=== PATIENT | female | born 1955 | race Caucasian/White ===

== ENCOUNTER 2016-11-01 23:44 | Inpatient (IN) | payer MEDICAID ==
[~2016-11-01] VITALS: Ht 152.4 cm; Wt 48.5 kg
[~2016-11-01 23:44] MED LIST: AMLO10 PO; CELE20TA PO; CLON.2 PO; DIAZ10TA PO; LISI-515 PO; METR-1 PO; OMEP40CA2 PO; PERC7.5T13 PO; ZOFR4TAB3 SL
[2016-11-01 23:47] VITALS: BP 159/94; PULSE 96; RESP 18; TEMP 98.5; O2SAT 98
[2016-11-02] VITALS (10 sets, daily range): BP systolic 120–234; BP diastolic 53–129; PULSE 58–110; RESP 18–22; TEMP 97–99.1; O2SAT 94–98
[2016-11-02] MEDS ORDERED: SODIUM CHLOR 0.9% 1000 ML INJ 1,000 ML IV ONE (00:30)
[2016-11-02] MEDS ORDERED: ONDANSETRON HCL 4 MG/2 ML VIAL IV PUSH ONE (00:30)
[2016-11-02] MEDS ORDERED: PAXI10TA2 PO (00:36)
[2016-11-02] MEDS ORDERED: PROT40TA PO (00:37)
[2016-11-02] MEDS ORDERED: HYDROmorphone HCL PF 1 MG/ML VIAL ONE ×2 (01:00→03:43)
[2016-11-02] MEDS ORDERED: HYDROmorphone HCL PF 0.5 MG/0.5 ML SYRINGE IV PUSH ONE ×2 (01:00→03:30)
--- NOTE | 2016-11-02 01:04 | PD ---
HPI Chief Complaint: Seizure Time Seen by Provider: 00:20 Travel History International Travel<30 days: No Contact w/Intl Traveler<30days: No Traveled to known affect area: No History of Present Illness HPI The patient is a 61 year old female who presents to the [facility] emergency department with a history of awakening this morning with generalized abdominal pain and nausea vomiting. The patient reports that she has a history of frequent episodes of abdominal pain with nausea and vomiting that have been attributed to short gut syndrome. She is in the process of being reevaluated by a new calciner operator, at the [facility]. The patient tried taking her oral Zofran and continued to have vomiting. She reports that she's had too many episodes of vomiting to count. She reports that she last moved her bowels yesterday. She reports that she does have a history of constipation. She denies having any known fevers. Her reports that they were attempting to hydrate her with Pedialyte, however she was not able to keep it down. He reports that at 10 PM she had seizure activity. He reports that it appeared to be shaking all over with a blue coloration to her lips. He reports that she has had a seizure in the past and was seen at [facility] for it. The patient was noted to have a spot on her brain. She is attempting to follow-up with a neurologist, however she has not done so yet. He reports that she was placed on gabapentin for seizures in the past, however her primary care physician discontinue this a few months ago. Otherwise on review of systems, the patient denies any recent cough, cough, congestion, neck pain, chest pain, shortness of breath, urinary symptoms, or other neurologic symptoms. [facility] Past Medical History Narrative Medical the patient's past medical history is significant for recurrent abdominal pain with episodes of vomiting, hypertension, history of colon cancer, history of bowel obstruction and adhesion lysis, history of post traumatic stress disorder , history of short gut syndrome. Arthritis: Yes (BACK AND HIPS) Anxiety: Yes (PTSD) Depression: Yes Cancer: Yes (COLON) Cardiovascular Problems: Yes Chemotherapy: No Diminished Hearing: No Endocrine: No Gastrointestinal Disorders: Yes (COLON CANCER AND COLECTOMY IN 2009 DUODENITIS) Genitourinary: Yes (RENAL STENT PLACEMENT) Hypertension: Yes Immune Disorder: No Implanted Vascular Access Dvce: No Musculoskeletal: Yes Neurologic: Yes Psychiatric: Yes (PTSD) Reproductive: No Respiratory: No Immunizations Current: Yes Radiation Therapy: No Seizures: Yes Menopausal: Yes : 1 Para: 1 Miscarriage: 0 Tubal Ligation: Yes Past Surgical History Narrative Surgical The patient's past surgical history is significant for a partial colectomy due to colon cancer, left breast lumpectomy, left renal stent, hemorrhoidectomy, exploratory lap with lysis of adhesions. Abdominal Surgery: Yes (10'' COLECTOMY, HEMORHROID) Appendectomy: Yes Gynecologic Surgery: Yes (LT LUMPECTOMY) Neurologic Surgery: Yes (LT RENAL ARTERY STENT) Pacemaker: No Other Surgery: Yes Social History Alcohol Use: No Tobacco Use: No Substance Use: No Allergies-Medications (Allergen,Severity, Reaction): Coded Allergies: codeine (Unverified Allergy, Severe, Nausea/Vomiting, 11/01/16) diphenhydramine (Unverified Allergy, Severe, Hypertension, 11/01/16) hydrocodone (Unverified Allergy, Severe, Nausea/Vomiting, 11/01/16) Reported Meds & Prescriptions Reported Meds & Active Scripts Active Percocet (Oxycodone-Acetaminophen) 7.5-325 mg Tab 1 Tab PO Q4H PRN Reported Protonix (Pantoprazole Sodium) 40 Mg Tab 40 Mg PO DAILY Paxil (Paroxetine HCl) 10 Mg Tab 40 Mg PO DAILY Zofran Odt (Ondansetron Odt) 4 Mg Tab 4 Mg SL TID PRN Norvasc (Amlodipine Besylate) 10 Mg Tab 10 Mg PO DAILY Lisinopril 20 Mg Tab 20 Mg PO BID Diazepam 10 Mg Tab 10 Mg PO TID Catapres (Clonidine) 0.2 Mg Tab 0.2 Mg PO Q12HR Review of Systems Except as stated in HPI: all other systems reviewed are Neg General / Constitutional: No: Fever Eyes: No: Visual changes HENT: No: Headaches Cardiovascular: No: Chest Pain or Discomfort Respiratory: No: Shortness of Breath Gastrointestinal: Positive: Nausea, Vomiting, Abdominal Pain, Constipation, Indigestion, Loss of Appetite, No: Diarrhea, Hematemesis, Hematochezia, Changes in Bowel Habits Genitourinary: No: Dysuria Musculoskeletal: No: Pain Skin: No Rash Neurologic: Positive: Weakness, Seizures, No: Focal Abnormalities, Change in Mentation, Slurred Speech, Sensory Disturbance Psychiatric: No: Depression Endocrine: No: Polydipsia Hematologic/Lymphatic: No: Easy Bruising Physical Exam Narrative General: The patient is a well-developed, thin appearing female, uncomfortable appearing on arrival, with tachypnea, writhing around in the bed. Head and Neck exam: Head is normocephalic atraumatic. Eyes: EOMI, pupils are equal round and reactive to light. Nose: Midline septum with pink mucous membranes Mouth: Dentition unremarkable. Moist mucus membranes. Posterior oropharynx is not erythematous. No tonsillar hypertrophy. Uvula midline. Airway patent. Neck: No palpable lymphadenopathy. No nuchal rigidity. No thyromegaly. Cardiovascular: Sinus tachycardia in the low 100 without murmurs, gallops, or rubs. No pulse deficit to the extremities and simultaneous auscultation and palpation of the radial artery. Lungs: Clear to auscultation bilaterally. No wheezes, rhonchi, or rales. Abdomen: Soft, with diffuse tenderness on palpation in all quadrants of the abdomen. No guarding, rebound, or rigidity. Negative Arvizu's sign. No point tenderness specifically over McBurney's point. Decreased bowel sounds are audible. Extremities: No clubbing, cyanosis, or edema. 2+ pulses in all 4 extremities. Back: No spinous process tenderness to palpation. No costovertebral angle tenderness to palpation. Neurologic Exam: Grossly nonfocal. Skin Exam: No rash noted. Intact skin that is warm and dry. Data Data Last Documented VS Vital Signs Date Time Temp Pulse Resp B/P (MAP) Pulse Ox O2 Delivery O2 Flow Rate FiO2 11/02/16 01:58 97.0 110 22 189/86 (120) 98 Room Air Orders Orders Electrocardiogram (11/02/16 00:30) Complete Blood Count With Diff (11/02/16 00:30) Comprehensive Metabolic Panel (11/02/16 00:30) Creatine Kinase (Cpk) (11/02/16 00:30) Ckmb (Isoenzyme) Profile (11/02/16 00:30) Troponin I (11/02/16 00:30) B-Type Natriuretic Peptide (11/02/16 00:30) Prothrombin Time / Inr (Pt) (11/02/16:30) Act Partial Throm Time (Ptt) (11/02/16 00:30) Lipase (11/02/16 00:30) Urinalysis - C+S If Indicated (11/02/16:30) Magnesium (Mg) (11/02/16:30) Chest, Single Ap (11/02/16 00:30) Ct Brain W/O Iv Contrast(Rout) (11/02/16 00:30) Iv Access Insert/Monitor (11/02/16 00:30) Ecg Monitoring (11/02/16:) Oximetry (11/02/16:30) Drug Screen, Random Urine (11/02/16:30) Alcohol (Ethanol) (11/02/16:30) Salicylates (Aspirin) (11/02/16:30) Tylenol (Acetaminophen) (11/02/16:30) Lactic Acid Sepsis Protocol (11/02/16 00:30) Sodium Chlor 0.9% 1000 Ml Inj (Ns 1000 M (11/02/16 00:30) Ondansetron Inj (Zofran Inj) (11/02/16 00:30) Hydromorphone Pf Inj (Dilaudid Pf Inj) (11/02/16 01:00) Hydromorphone Pf Inj (Dilaudid Pf Inj) (11/02/16 01:00) Blood Culture (11/02/16 01:27) Sodium Chlorid 0.9% 500 Ml Inj (Ns 500 M (11/02/16 01:30) Piperacil-Tazo 3.375 Gm Premix (Zosyn 3. (11/02/16 01:30) Vancomycin Inj (Vancomycin Inj) (11/02/16 01:30) Potassium Chlor 20 Meq Premix (Kcl 20 Me (11/02/16 01:30) CKMB (11/02/16 00:45) CKMB% (11/02/16 00:45) Ct Abd/Pel W/O Iv Contrast (11/02/16 00:30) Lactic Acid Sepsis Protocol (11/02/16 03:07) Admit Order (Ed Use Only) (11/02/16 03:09) Labs Laboratory Tests Test 11/02/16 00:45 White Blood Count 19.1 TH/MM3 Red Blood Count 5.13 MIL/MM3 Hemoglobin 13.6 GM/DL Hematocrit 41.6 % Mean Corpuscular Volume 81.2 FL Mean Corpuscular Hemoglobin 26.6 PG Mean Corpuscular Hemoglobin Concent 32.7 % Red Cell Distribution Width 16.8 % Platelet Count 502 TH/MM3 Mean Platelet Volume 9.5 FL Neutrophils (%) (Auto) 86.0 % Lymphocytes (%) (Auto) 8.4 % Monocytes (%) (Auto) 5.0 % Eosinophils (%) (Auto) 0.0 % Basophils (%) (Auto) 0.6 % Neutrophils # (Auto) 16.4 TH/MM3 Lymphocytes # (Auto) 1.6 TH/MM3 Monocytes # (Auto) 1.0 TH/MM3 Eosinophils # (Auto) 0.0 TH/MM3 Basophils # (Auto) 0.1 TH/MM3 CBC Comment DIFF FINAL Differential Comment Prothrombin Time 10.6 SEC Prothromb Time International Ratio 1.0 RATIO Activated Partial Thromboplast Time 20.1 SEC Blood Urea Nitrogen 17 MG/DL Creatinine 2.37 MG/DL Random Glucose 279 MG/DL Total Protein 9.0 GM/DL Albumin 4.3 GM/DL Calcium Level 10.0 MG/DL Magnesium Level 2.8 MG/DL Alkaline Phosphatase 175 U/L Aspartate Amino Transf (AST/SGOT) 27 U/L Alanine Aminotransferase (ALT/SGPT) 28 U/L Total Bilirubin 0.4 MG/DL Sodium Level 141 MEQ/L Potassium Level 2.8 MEQ/L Chloride Level 94 MEQ/L Carbon Dioxide Level 20.2 MEQ/L Anion Gap 27 MEQ/L Estimat Glomerular Filtration Rate 21 ML/MIN Lactic Acid Level 13.6 mmol/L Total Creatine Kinase 212 U/L Creatine Kinase MB 1.8 NG/ML Creatine Kinase MB % 0.8 % Troponin I LESS THAN 0.02 NG/ML B-Type Natriuretic Peptide 95 PG/ML Lipase 226 U/L Salicylates Level 2.2 MG/DL Acetaminophen Level LESS THAN 2.0 MCG/ML Ethyl Alcohol Level LESS THAN 3 MG/DL MDM Medical Decision Making Medical Screen Exam Complete: Yes Emergency Medical Condition: Yes Medical Record Reviewed: Yes Interpretation(s) Last Impressions Head CT 11/02/1629 Signed Impressions: Service Date/Time: Wednesday, November 02, 2016 02:20 - CONCLUSION: 1. No acute intracranial abnormalities. Landry Dodson MD Chest X-Ray 11/02/1629 Signed Impressions: Service Date/Time: Wednesday, November 02, 2016 01:04 - CONCLUSION: 1. No active disease. Landry Dodson MD Abdomen/Pelvis CT 11/02/1629 Signed Impressions: Service Date/Time: Wednesday, November 02, 2016 02:23 - CONCLUSION: 1. No acute findings in abdomen and pelvic CT. Postop partial right colectomy. No obstruction or free fluid. Landry Dodson MD Differential Diagnosis Bowel obstruction, versus ischemic bowel, versus perforated bowel, versus sepsis Narrative Course During the course of the patients emergency department visit, the patients history, examination, and differential diagnosis were reviewed with the patient. The patient had IV access obtained and blood work sent for analysis. The patient had an ECG done on arrival. The patient's ECG shows a sinus tachycardia with occasional supraventricular premature complexes, wavy, tremulous baseline could be affecting interpretation, however the patient does appear to have P waves. Heart rate is 106, no acute ST segment elevation is noted. ST segment depression is noted in lead 2, V5, V6. The patient was initially provided a 30 mL per KG IV fluid bolus. The patient was noted to have an elevated white blood cell count at 19.1 and was covered with broad-spectrum antibiotics including Zosyn 3.375 g IV, vancomycin 1 g IV. The patient was noted to be hypokalemic and continued nausea and vomiting therefore she was given 20 mEq of potassium chloride over 2 hours IV. The patient was given hydromorphone for pain, Zofran for nausea. On reexamination the patient reports that the pain briefly improved and then recurred. The patient has again vomited. The patient was given a second dose of hydromorphone and Zofran. The patients laboratory studies were reviewed and remarkable for a white count of 19.1, hemoglobin 13.6, platelets 502 with neutrophils 86, lymphocytes 8.4, CMP is remarkable for potassium of 2.8, CO2 20.2, anion gap 27, BUN 17, creatinine 2.37, glucose 279, magnesium 2.8, alkaline phosphatase 175, CPK 212, troponin less than 0.02, lipase 226. BNP is 95, PT PTT unremarkable. Acetaminophen less than 2, alcohol level less than 3, salicylate 2.2 Radiology studies were reviewed and remarkable for a chest x-ray that shows no acute cardiopulmonary disease. CT scan of the brain shows no acute intracranial abnormality, CT scan of the abdomen and pelvis shows no acute findings in the abdomen and pelvis, postop partial right colectomy, no obstruction or free fluid. The patients results were discussed with the patient, including the plan of care. I explained that further testing and/ or monitoring is indicated based on the patients history, examination, and/ or laboratory findings. Therefore, I recommended admission for additional evaluation. The patient expressed understanding and was agreeable with this plan. The patient was admitted to the hospital in guarded condition and sent to a bed under the care of the [facility]. Sepsis Criteria SIRS Criteria (2 or more): Heart rate over 90, WBC > 15207, < 4000 or > 10% bands Severe Sepsis (+one): Lactate >2 Criteria Outcome: Meets SIRS criteria Physician Communication Physician Communication The patient's case was discussed with Dr. Connor who did agree to admit the patient for further evaluation and treatment at this time. Diagnosis Primary Impression: Abdominal pain Qualified Codes: R10.84 - Generalized abdominal pain Additional Impressions: Dehydration Lactic acid acidosis Admitting Information Admitting Physician Requests: Admit Adriana Poole MD Nov 02, 2016 01:04
[2016-11-02 01:06] LABS: AUTOMATED NEUTROPHIL # 16.4 TH/MM3 (1.8-7.7); BASOPHIL # 0.1 TH/MM3 (0-0.2); BASOPHIL % 0.6 % (0.0-2.0); HEMATOCRIT 41.6 % (35.0-46.0); HEMO FLAGS DIFF FINAL; LYMPH % 8.4 % (9.0-44.0); LYMPHOCYTE # 1.6 TH/MM3 (1.0-4.8); MEAN CELL VOLUME 81.2 FL (80.0-100.0); MEAN CORPUSCULAR HEMOGLOBIN 26.6 PG (27.0-34.0); MEAN CORPUSCULAR HGB CONC 32.7 % (32.0-36.0); PLATELET COUNT 502 TH/MM3 (150-450); RED BLOOD COUNT 5.13 MIL/MM3 (4.00-5.30); RED CELL DISTRIBUTION WIDTH 16.8 % (11.6-17.2); WHITE BLOOD COUNT 19.1 TH/MM3 (4.0-11.0)
--- NOTE | 2016-11-02 01:27 | RADRPT ---
EXAM DATE/TIME: 11/02/2016 01:04 [facility] COMPARISON: CHEST SINGLE AP, January 18, 2016, 22:19. INDICATIONS : Shortness of breath. MEDICAL HISTORY : None. SURGICAL HISTORY : None. ENCOUNTER: Initial ACUITY: 1 day PAIN SCORE: 0/10 LOCATION: Bilateral chest FINDINGS: A single view of the chest demonstrates the lungs to be symmetrically aerated without evidence of mas s, infiltrate or effusion. The cardiomediastinal contours are unremarkable. Osseous structures are intact. CONCLUSION: 1. No active disease. Landry Dodson MD on November 02, 2016 at 1:25 Board Certified Radiologist. This report was verified electronically.
[2016-11-02 01:28] LABS: ACETAMINOPHEN LESS THAN 2.0 MCG/ML (10.0-30.0); ALKALINE PHOSPHATASE 175 U/L (45-117); ALT (GPT) 28 U/L (10-53); ANION GAP 27 MEQ/L (5-15); AST (GOT) 27 U/L (15-37); BICARBONATE 20.2 MEQ/L (21.0-32.0); BLOOD UREA NITROGEN 17 MG/DL (7-18); CHLORIDE 94 MEQ/L (98-107); CREATINE KINASE 212 U/L (26-192); GLOMERULAR FILTRATION RATE 21 ML/MIN (>89); MAGNESIUM 2.8 MG/DL (1.5-2.5); SODIUM (NA) 141 MEQ/L (136-145); TOTAL BILIRUBIN ADULT 0.4 MG/DL (0.2-1.0)
[2016-11-02 01:29] LABS: ALCOHOL LESS THAN 3 MG/DL (0-5)
[2016-11-02 01:30] LABS: APTT (PATIENT) 20.1 SEC (24.3-30.1); POTASSIUM 2.8 MEQ/L (3.5-5.1); PROTHROMBIN TIME - PATIENT 10.6 SEC (9.8-11.6)
[2016-11-02] MEDS ORDERED: VANCOMYCIN INJ 1,000 MG in SODIUM CHLOR 0.9% 250 ML INJ 250 ML IV ONE (01:30)
[2016-11-02] MEDS ORDERED: POTASSIUM CHLOR 20 MEQ PREMIX 100 ML IV ONE (01:30)
[2016-11-02] MEDS ORDERED: SODIUM CHLORID 0.9% 500 ML INJ 500 ML IV ONE (01:30)
[2016-11-02] MEDS ORDERED: PIPERACIL-TAZO 3.375 GM PREMIX 50 ML IV ONE (01:30)
[2016-11-02 01:43] LABS: CKMB 1.8 NG/ML (0.5-3.6)
--- NOTE | 2016-11-02 02:37 | RADRPT ---
EXAM DATE/TIME: 11/02/2016 02:20 [facility] COMPARISON: No previous studies available for comparison. INDICATIONS : Seizure. RADIATION DOSE: 38.08 CTDIvol (mGy) ; Tabletop CT Head MEDICAL HISTORY : Seizures. Hypertension. Carcinoma, colon. SURGICAL HISTORY : None. ENCOUNTER: Initial ACUITY: 1 day PAIN SCALE: 0/10 LOCATION: cranial TECHNIQUE: Multiple contiguous axial images were obtained of the head. Using automated exposure control and adj ustment of the mA and/or kV according to patient size, radiation dose was kept as low as reasonably a chievable to obtain optimal diagnostic quality images. DICOM format image data is available electro nically for review and comparison. FINDINGS: CEREBRUM: The ventricles are normal for age. No evidence of midline shift, mass lesion, hemorrhage or acute in farction. No extra-axial fluid collections are seen. POSTERIOR FOSSA: The cerebellum and brainstem are intact. The 4th ventricle is midline. The cerebellopontine angle i s unremarkable. EXTRACRANIAL: The visualized portion of the orbits is intact. SKULL: The calvaria is intact. No evidence of skull fracture. CONCLUSION: 1. No acute intracranial abnormalities. Landry Dodson MD on November 02, 2016 at 2:33 Board Certified Radiologist. This report was verified electronically.
--- NOTE | 2016-11-02 02:43 | RADRPT ---
EXAM DATE/TIME: 11/02/2016 02:23 [facility] COMPARISON: No previous studies available for comparison. INDICATIONS : Diffuse abdominal pain with nausea. ORAL CONTRAST: No oral contrast ingested. RADIATION DOSE: 4.58 CTDIvol (mGy) MEDICAL HISTORY : Hypertension. Carcinoma, colon. SURGICAL HISTORY : Appendectomy. Tubal ligation.Colectomy. Left renal shunt. ENCOUNTER: Initial ACUITY: 1 day PAIN SCALE: 7/10 LOCATION: All quadrants TECHNIQUE: Volumetric scanning of the abdomen and pelvis was performed. Using automated exposure control and ad justment of the mA and/or kV according to patient size, radiation dose was kept as low as reasonably achievable to obtain optimal diagnostic quality images. DICOM format image data is available electro nically for review and comparison. FINDINGS: Lung bases are clear. No acute findings in the liver, spleen, adrenals, kidneys or pancreas. No free fluid. No bowel obstruction. Postop changes of partial right colectomy. No acute bony abnorma lity. CONCLUSION: 1. No acute findings in abdomen and pelvic CT. Postop partial right colectomy. No obstruction or free fluid. Landry Dodson MD on November 02, 2016 at 2:36 Board Certified Radiologist. This report was verified electronically.
[2016-11-02 02:56] LABS: LACTIC ACID GHOST NOT REPORTABLE
[2016-11-02] MEDS ORDERED: ONDANSETRON HCL 4 MG/2 ML VIAL IV ONE (03:30)
[2016-11-02] MEDS ORDERED: ONDANSETRON HCL 4 MG/2 ML VIAL IVP PRN (04:00)
[2016-11-02] MEDS ORDERED: SODIUM CHLORIDE 0.9% FLUSH 10 ML FLUSH IV FLUSH PRN (04:00)
[2016-11-02] MEDS: SODIUM CHLOR 0.9% 1000 ML INJ 1,000 ML IV SCH ×3 (04:00→23:32)
[2016-11-02] MEDS ORDERED: NALOXONE HCL 0.4 MG/ML AMP IV PRN (04:00)
[2016-11-02 05:27] LABS: LACTIC ACID GHOST NOT REPORTABLE
[2016-11-02] MEDS ORDERED: cloNIDine HCL 0.2 MG TAB PO ONE (06:15)
[2016-11-02] MEDS: HEPARIN SODIUM - SQ 10,000 UNITS/ML VIAL SQ SCH ×3 (06:41→23:30)
--- NOTE | 2016-11-02 07:31 | HHI.HP ---
[facility] Primary Care Physician John Donato MD Admission Diagnosis Abdominal pain, dehydration, hypokalemia, sepsis Diagnoses: Travel History International Travel<30 Days: No Contact w/Intl Traveler <30 Da: No Traveled to Known Affected Are: No History of Present Illness History from patient, ER physician communication, and review of medical records. Patient reported that she was brought to the hospital because she had a witnessed seizure at home. Her was a one who called 911. She does not remember the details of it but only remembered what her told her. She reports she was having nausea and vomiting starting Monday afternoon. She states she just could not stop these episodes of nausea and vomiting despite using Zofran. Home. Also reports of associated diarrhea. The symptoms continued all day Monday. The evening of Monday, she had an episode of seizure which was witnessed by . It is described as tonic-clonic seizures both the ambulance members and patient's history. Patient reports that the stent of episodes started since 1970s. She states that she was tried on different types of medications but none worked. She reports the episodes usually are preceded by nausea vomiting and when she cannot control his nausea and vomiting episodes, she would get too dehydrated and something sets in and she would have seizures. States she it is diabetic but only recently diagnosed. Not able to name her medications for diabetes. She does not measure her blood sugars and does not do whether her blood sugars were low on the scene. But she definitely was not eating or drinking well for the past 2 days. She reports that at one point, she is to be on Xanax 8 mg and therefore she had started to see Dr. TORRES as her primary and requested the doctor to wean her off Xanax. She states since then, she has been weaned off Xanax for past few years now. She has currently been taking Valium 10 mg 3 times a day. Of course, she was not able to keep this down as well for the past 2 days because of constant nausea and vomiting. Denies alcohol abuse. Denies use of synthetic marijuana. Again, patient is diabetic, no documented blood sugars from EMS. Her blood sugars while in emergency room has been in the 200s. Apart from the above, patient denies any recent fever/the melena/hematemesis/ hematochezia/hematuria. Denies any chest pain/shortness of breath/focal weakness/palpitations/syncopal episodes. Review of Systems Except as stated in HPI: all other systems reviewed are Neg Past Family Social History Past Medical History htn dm renal stent- likely due to Renal Artery Stenosis no cardiac probiotics never a smoker- no copd hx of colon cancer- dr becerra removed and had rx in 2009 Past Surgical History partial colectomy appendecoomy Allergies: Coded Allergies: codeine (Unverified Allergy, Severe, Nausea/Vomiting, 11/01/16) diphenhydramine (Unverified Allergy, Severe, Hypertension, 11/01/16) hydrocodone (Unverified Allergy, Severe, Nausea/Vomiting, 11/01/16) Family History fatehr- dm mom- copd, dm, heart problem Social History never smoked no drinking no drugs lives with , still drives, Physical Exam Vital Signs Vital Signs Date Time Temp Pulse Resp B/P (MAP) Pulse Ox O2 Delivery O2 Flow Rate FiO2 11/02/16 06:40 89 18 234/129 (164) 98 Room Air 11/02/16 04:55 96 18 224/101 (142) 96 Room Air 11/02/16 01:58 97.0 110 22 189/86 (120) 98 Room Air 11/02/16 01:44 98 Room Air 11/01/16 23:47 98.5 96 18 159/94 (115) 98 Physical Exam GENERAL: This is a thin middle-aged lady, looks to be in quite discomfort from persistent nausea and vomiting. Looks dehydrated. SKIN: No rashes, ecchymoses or lesions. Cool and dry. HEAD: Atraumatic. Normocephalic. No temporal or scalp tenderness. EYES: . No scleral icterus. No injection or drainage. ENT: Nose without bleeding, purulent drainage or septal hematoma. Airway patent. NECK: Trachea midline. No JVD CARDIOVASCULAR: Regular rate and rhythm without murmurs, gallops, or rubs. RESPIRATORY: Clear to auscultation. Breath sounds equal bilaterally. No wheezes , rales, or rhonchi. GASTROINTESTINAL: Abdomen soft, non-tender, nondistended. . No guarding. MUSCULOSKELETAL: Extremities without clubbing, cyanosis, or edema. No calf tenderness. NEUROLOGICAL: Awake and alert. Motor and sensory grossly within normal limits. Normal speech. Laboratory Laboratory Tests Test 11/02/16 00:45 11/02/16 03:15 11/02/16 06:10 White Blood Count 19.1 Red Blood Count 5.13 Hemoglobin 13.6 Hematocrit 41.6 Mean Corpuscular Volume 81.2 Mean Corpuscular Hemoglobin 26.6 Mean Corpuscular Hemoglobin Concent 32.7 Red Cell Distribution Width 16.8 Platelet Count 502 Mean Platelet Volume 9.5 Neutrophils (%) (Auto) 86.0 Lymphocytes (%) (Auto) 8.4 Monocytes (%) (Auto) 5.0 Eosinophils (%) (Auto) 0.0 Basophils (%) (Auto) 0.6 Neutrophils # (Auto) 16.4 Lymphocytes # (Auto) 1.6 Monocytes # (Auto) 1.0 Eosinophils # (Auto) 0.0 Basophils # (Auto) 0.1 CBC Comment DIFF FINAL Differential Comment Prothrombin Time 10.6 Prothromb Time International Ratio 1.0 Activated Partial Thromboplast Time 20.1 Blood Urea Nitrogen 17 Creatinine 2.37 Random Glucose 279 Total Protein 9.0 Albumin 4.3 Calcium Level 10.0 Magnesium Level 2.8 Alkaline Phosphatase 175 Aspartate Amino Transf (AST/SGOT) 27 Alanine Aminotransferase (ALT/SGPT) 28 Total Bilirubin 0.4 Sodium Level 141 Potassium Level 2.8 Chloride Level 94 Carbon Dioxide Level 20.2 Anion Gap 27 Estimat Glomerular Filtration Rate 21 Lactic Acid Level 13.6 4.2 2.0 Total Creatine Kinase 212 Creatine Kinase MB 1.8 Creatine Kinase MB % 0.8 Troponin I LESS THAN 0.02 B-Type Natriuretic Peptide 95 Lipase 226 Salicylates Level 2.2 Acetaminophen Level LESS THAN 2.0 Ethyl Alcohol Level LESS THAN 3 Date/Time Source Procedure Growth Status 11/02/16 01:35 Blood Peripheral Aerobic Blood Culture Pending Received 11/02/16 01:35 Blood Peripheral Anaerobic Blood Culture Pending Received Result Diagram: 11/02/16 0045 11/02/16 0045 Imaging Last [address] 11/02/16 0030 Signed Impressions: Service Date/Time: Wednesday, November 02, 2016 02:20 - CONCLUSION: 1. No acute intracranial abnormalities. Landry Dodson MD Chest X-Ray 11/02/1629 Signed Impressions: Service Date/Time: Wednesday, November 02, 2016 01:04 - CONCLUSION: 1. No active disease. Landry Dodson MD Abdomen/Pelvis CT 11/02/1629 Signed Impressions: Service Date/Time: Wednesday, November 02, 2016 02:23 - CONCLUSION: 1. No acute findings in abdomen and pelvic CT. Postop partial right colectomy. No obstruction or free fluid. Landry Dodson MD Caprini VTE Risk Assessment Caprini VTE Risk Assessment: Mod/High Risk (score >= 2) Caprini Risk Assessment Model Point Value = 1 Point Value = 2 Point Value = 3 Point Value = 5 Age 41-60 Minor surgery BMI > 25 kg/m2 Swollen legs Varicose veins or History of unexplained or recurrent spontaneous Oral contraceptives or hormone replacement Sepsis (< 1 month) Serious lung disease, including pneumonia (< 1 month) Abnormal pulmonary function Acute myocardial infarction Congestive heart failure (< 1 month) History of inflammatory bowel disease Medical patient at bed rest Age 61-74 Arthroscopic surgery Major open surgery (> 45 min) Laparoscopic surgery (> 45 min) Malignancy Confined to bed (> 72 hours) Immobilizing plaster cast Central venous access Age >= 75 History of VTE Family history of VTE Factor V Leiden Prothrombin [id number] Lupus anticoagulant Anticardiolipin antibodies Elevated serum homocysteine Heparin-induced thrombocytopenia Other congenital or acquired thrombophilia Stroke (< 1 month) Elective arthroplasty Hip, pelvis, or leg fracture Acute spinal cord injury (< 1 month) Prophylaxis Regimen Total Risk Factor Score Risk Level Prophylaxis Regimen 0-1 Low Early ambulation 2 Moderate Order ONE of the following: *Sequential Compression Device (SCD) *Heparin 5000 units SQ BID 3-4 Higher Order ONE of the following medications: *Heparin 5000 units SQ TID *Enoxaparin/Lovenox 40 mg SQ daily (WT < 150 kg, CrCl > 30 mL/min) *Enoxaparin/Lovenox 30 mg SQ daily (WT < 150 kg, CrCl > 10-29 mL/min) *Enoxaparin/Lovenox 30 mg SQ BID (WT < 150 kg, CrCl > 30 mL/min) AND/OR *Sequential Compression Device (SCD) 5 or more Highest Order ONE of the following medications: *Heparin 5000 units SQ TID (Preferred with Epidurals) *Enoxaparin/Lovenox 40 mg SQ daily (WT < 150 kg, CrCl > 30 mL/min) *Enoxaparin/Lovenox 30 mg SQ daily (WT < 150 kg, CrCl > 10-29 mL/min) *Enoxaparin/Lovenox 30 mg SQ BID (WT < 150 kg, CrCl > 30 mL/min) AND *Sequential Compression Device (SCD) Assessment and Plan Assessment and Plan Impression: Witnessed seizure Lactic acid acidosis Anion gap metabolic acidosis- secondary to lactic acid acidosis from seizures Acute renal failure- secondary to dehydration from GI loss Hypokalemia Uncontrolled hypertension/secondary to missing home medications from GI loss. Suspects patient also has history of renal artery stenosis. Persistent nausea/vomiting prior history of chronicity. Possible cyclic vomiting syndrome. History of colon cancer with status post partial right colectomy Plan: IV hydration. Nothing by mouth. Patient was given aggressive IV hydration in ER. Repeat lactic acid has trended down. Repeat BMP now to follow potassium levels and renal function. Without waiting on repeat lab work, give patient additional 40 mEq by mouth of KCl and 40 mEq IV KCl. Seizure precautions. EEG. Neurology consult. Question whether patient is having seizures from benzo withdrawal as she is not able to keep down her Valium for the past 2 days due to her severe nausea and vomiting. There is also possibility that patient had hypoglycemic seizures and she was not able to eat or drink well for past 2 days while having these episodes of nausea and vomiting. Her Start patient on her home antihypertensive medications including clonidine. Nausea control. Add hydralazine 10 mg IV every 30 minutes when necessary for blood pressure greater than 160/90. DVT prophylaxis- with heparin. Discussed Condition With Patient, ER physician, patient's nurse Physician Certification 2 Midnight Certification Type: Admission for Inpatient Services Order for Inpatient Services The services are ordered in accordance with Medicare regulations or non- Medicare payer requirements, as applicable. In the case of services not specified as inpatient-only, they are appropriately provided as inpatient services in accordance with the 2-midnight benchmark. Estimated LOS (days): 3 days is the estimated time the patient will need to remain in the hospital, assuming treatment plan goals are met and no additional complications. Post-Hospital Plan: Home Salazar Connor MD Nov 02, 2016 07:31
[2016-11-02] MEDS ORDERED: cloNIDine HCL 0.1 MG TAB PO ONE (07:45)
[2016-11-02] MEDS ORDERED: POTASSIUM CHLORIDE 20 MEQ CONTROLLED RELEASE TAB PO ONE (08:00)
[2016-11-02] MEDS ORDERED: ONDANSETRON ODT 4 MG TAB SL PRN (08:15)
[2016-11-02] MEDS ORDERED: hydrALAZINE HCL 20 MG/ML VIAL IV PUSH PRN (08:15)
[2016-11-02] MEDS: POTASSIUM CHLOR 20 MEQ PREMIX 100 ML IV SCH ×2 (09:20→09:25)
[2016-11-02] MEDS: SODIUM CHLORIDE 0.9% FLUSH 10 ML FLUSH IV FLUSH SCH ×2 (09:24→21:00)
[2016-11-02] MEDS: PANTOPRAZOLE SOD 40 MG DELAYED RELEASE TAB PO SCH (09:24)
[2016-11-02] MEDS: DIAZEPAM 10 MG TAB PO SCH ×3 (09:24→17:57)
[2016-11-02] MEDS: PARoxetine HCL 20 MG TAB PO SCH (12:18)
[2016-11-02] MEDS: cloNIDine HCL 0.2 MG TAB PO SCH ×2 (12:19→23:28)
[2016-11-02 16:22] LABS: AUTOMATED NEUTROPHIL # 14.8 TH/MM3 (1.8-7.7); BASOPHIL # 0.1 TH/MM3 (0-0.2); BASOPHIL % 0.4 % (0.0-2.0); HEMATOCRIT 34.4 % (35.0-46.0); HEMO FLAGS DIFF FINAL; LYMPH % 12.5 % (9.0-44.0); LYMPHOCYTE # 2.3 TH/MM3 (1.0-4.8); MEAN CORPUSCULAR HEMOGLOBIN 25.7 PG (27.0-34.0); MEAN CORPUSCULAR HGB CONC 31.7 % (32.0-36.0); MONO % 7.1 % (0.0-8.0); PLATELET COUNT 306 TH/MM3 (150-450); RED BLOOD COUNT 4.25 MIL/MM3 (4.00-5.30); RED CELL DISTRIBUTION WIDTH 16.7 % (11.6-17.2); WHITE BLOOD COUNT 18.6 TH/MM3 (4.0-11.0)
[2016-11-02 16:53] LABS: ALKALINE PHOSPHATASE 130 U/L (45-117); ALT (GPT) 23 U/L (10-53); ANION GAP 10 MEQ/L (5-15); AST (GOT) 33 U/L (15-37); BICARBONATE 25.3 MEQ/L (21.0-32.0); BLOOD UREA NITROGEN 21 MG/DL (7-18); CHLORIDE 108 MEQ/L (98-107); GLOMERULAR FILTRATION RATE 31 ML/MIN (>89); MAGNESIUM 2.4 MG/DL (1.5-2.5); POTASSIUM 3.6 MEQ/L (3.5-5.1); SODIUM (NA) 143 MEQ/L (136-145); TOTAL BILIRUBIN ADULT 0.3 MG/DL (0.2-1.0)
--- NOTE | 2016-11-02 19:47 | MG ---
cc: DINA YOUNG PHD Lab No: [id number] Date: 11/02/2016 Age: 61 Sex: F Race: __ TECHNIQUE 17 channel EEG. DESCRIPTION The background rhythm reveals a symmetrical alpha rhythm frequency is 8 Hz, amplitude is 20-30 microvolts. There is some muscle artifact present. There is occasional eye movement artifact present. No epileptiform activity is identified. Photic results in a fairly well-developed driving response. INTERPRETATION Normal EEG MD JAYESH Yates/ROMAINE /7:08 PM /7:41 PM
--- NOTE | 2016-11-02 21:11 | MB ---
cc: DINA YOUNG M.D. DATE OF CONSULTATION: 11/02/2016 REASON FOR CONSULTATION: Seizures. HISTORY OF PRESENT ILLNESS Ms. Segundo is a 61-year-old female who has a history of seizures in the past which she relates were related to Xanax withdrawal many years ago. However, she has been off Xanax for some time and began having recurrent seizures. She currently takes Xanax and Valium for anxiety, but states that the seizures are not associated with withdrawal. She usually gets abdominal symptoms initially, feeling of nausea with vomiting and then goes into a grand mal seizure, last seizure being a day ago. They occur with erratic frequency. PAST MEDICAL HISTORY: 1. History of PTSD. 2. History of anxiety. 3. Seizure disorder as noted above. 4. Hypertension. 5. Diabetes. 6. Renal stent due to renal artery stenosis. 7. History of colon cancer, treated surgically in 2009. ALLERGIES CODEINE. DIPHENHYDRAMINE. HYDROCODONE. SOCIAL HISTORY: Denies alcohol use or drug abuse. Denies tobacco use. NEUROLOGICAL EXAMINATION: Blood pressure is 149/73, pulse 95, respiratory rate is 20, temperature 90 degrees. Higher cortical functions are normal. Cranial nerves intact. Motor exam is normal with no focal deficits. Reflexes symmetric. CT of the brain is normal. LABORATORY DATA White count 18,600, hemoglobin 10.9, hematocrit 34%, platelet count 306,000. Sodium is 143, potassium 3.6, chloride 108, CO2 is 25.3. BUN is 21, creatinine 1.69, GFR is 31, glucose is 133, AST 33, ALT 23. PT 10.6, INR 1, APTT 20.1. IMPRESSION Recurrent seizures. Her EEG was normal. RECOMMENDATIONS: Recommend obtaining an MRI of the brain, would recommend also starting Keppra 500 mg b.i.d. MD JAYESH Yates/JENNIFER /7:17 PM /8:53 PM
--- NOTE | 2016-11-02 21:22 | EKG ---
Date Performed: 11/02/2016 Time Performed: 01:53:03 PTAGE: 61 years EKG: SINUS TACHYCARDIA WITH OCCASIONAL SUPRAVENTRICULAR PREMATURE COMPLEXES POSSIBLE LEFT ATRIAL ENLARGEMENT POSSIBLE RIGHT VENTRICULAR CONDUCTION DELAY ANTEROSEPTAL MYOCARDIAL INFARCTION DIFFUSE S T-T CHANGES ABNORMAL ECG Compared to prior tracing no significant change DOCTOR: Yuliana Donovan Interpretating Date/Time 11/02/2016 21:21:26
[2016-11-02] MEDS: levETIRAcetam 500 MG TAB PO SCH (23:28)
[2016-11-03] VITALS: BP 113/57; PULSE 53; RESP 17; TEMP 97.3; O2SAT 97
[2016-11-03 04:00] VITALS: BP 142/76; PULSE 52; RESP 17; TEMP 97.7; O2SAT 96
[2016-11-03] MEDS: HEPARIN SODIUM - SQ 10,000 UNITS/ML VIAL SQ SCH ×3 (05:09→22:11)
[2016-11-03 05:14] LABS: ANION GAP 6 MEQ/L (5-15); AST (GOT) 32 U/L (15-37); BICARBONATE 24.3 MEQ/L (21.0-32.0); BLOOD UREA NITROGEN 17 MG/DL (7-18); CHLORIDE 112 MEQ/L (98-107); GLOMERULAR FILTRATION RATE 48 ML/MIN (>89); POTASSIUM 4.1 MEQ/L (3.5-5.1); SODIUM (NA) 142 MEQ/L (136-145)
[2016-11-03 05:15] LABS: BASOPHIL # 0.1 TH/MM3 (0-0.2); BASOPHIL % 0.4 % (0.0-2.0); EOSINOPHIL % 0.2 % (0.0-4.0); HEMATOCRIT 29.6 % (35.0-46.0); HEMO FLAGS DIFF FINAL; LYMPH % 24.5 % (9.0-44.0); LYMPHOCYTE # 3.2 TH/MM3 (1.0-4.8); MEAN CELL VOLUME 82.6 FL (80.0-100.0); MEAN CORPUSCULAR HGB CONC 31.5 % (32.0-36.0); MONO % 5.5 % (0.0-8.0); NEUT % 69.4 % (16.0-70.0); PLATELET COUNT 202 TH/MM3 (150-450); RED BLOOD COUNT 3.59 MIL/MM3 (4.00-5.30); RED CELL DISTRIBUTION WIDTH 16.9 % (11.6-17.2); WHITE BLOOD COUNT 12.9 TH/MM3 (4.0-11.0)
[2016-11-03 05:28] LABS: ALKALINE PHOSPHATASE 101 U/L (45-117); ALT (GPT) 19 U/L (10-53); TOTAL BILIRUBIN ADULT 0.2 MG/DL (0.2-1.0)
[2016-11-03 08:00] VITALS: BP 172/81; PULSE 62; RESP 20; TEMP 98.1; O2SAT 94
[2016-11-03] MEDS: PANTOPRAZOLE SOD 40 MG DELAYED RELEASE TAB PO SCH (08:36)
[2016-11-03] MEDS: DIAZEPAM 10 MG TAB PO SCH ×3 (08:36→17:15)
[2016-11-03] MEDS: cloNIDine HCL 0.2 MG TAB PO SCH ×2 (08:36→22:10)
[2016-11-03] MEDS: PARoxetine HCL 20 MG TAB PO SCH (08:36)
[2016-11-03] MEDS: levETIRAcetam 500 MG TAB PO SCH ×2 (08:36→22:10)
[2016-11-03] MEDS: SODIUM CHLORIDE 0.9% FLUSH 10 ML FLUSH IV FLUSH SCH ×2 (08:37→21:00)
--- NOTE | 2016-11-03 08:47 | HHI.PR ---
Subjective Remarks Feeling well. Eating okay. Wants to go home. No further seizures. Objective Vitals Vital Signs Date Time Temp Pulse Resp B/P (MAP) Pulse Ox O2 Delivery O2 Flow Rate FiO2 11/03/16 04:00 97.7 52 17 142/76 (98) 96 11/03/16 01:09 96 Nasal Cannula 2.00 11/03/16 00:00 97.3 53 17 113/57 (75) 97 11/02/16 20:00 98.4 58 18 138/74 (95) 95 11/02/16 15:50 98.9 75 20 132/61 (84) 94 11/02/16 11:50 99.1 95 20 149/73 (98) 98 I/O 11/02/16 11/02/16 11/02/16 11/03/16 11/03/16 11/03/16 07:00 15:00 23:00 07:00 15:00 23:00 Intake Total 1750 ml 790 ml Balance 1750 ml 790 ml Intake Oral 690 ml IV Total 1750 ml 100 ml # Voids 3 # Bowel Movements 1 Result Diagram: 11/03/16 0415 11/03/16 0415 Imaging Last Impressions Head CT 11/02/1629 Signed Impressions: Service Date/Time: Wednesday, November 02, 2016 02:20 - CONCLUSION: 1. No acute intracranial abnormalities. Landry Dodson MD Chest X-Ray 11/02/1629 Signed Impressions: Service Date/Time: Wednesday, November 02, 2016 01:04 - CONCLUSION: 1. No active disease. Landry Dodson MD Abdomen/Pelvis CT 11/02/1629 Signed Impressions: Service Date/Time: Wednesday, November 02, 2016 02:23 - CONCLUSION: 1. No acute findings in abdomen and pelvic CT. Postop partial right colectomy. No obstruction or free fluid. Landry Dodson MD Objective Remarks GENERAL: This is a well-nourished, well-developed patient, in no apparent distress. CARDIOVASCULAR: Normal rate and regular rhythm without murmurs, gallops, or rubs. RESPIRATORY: Good respiratory efforts. Breath sounds equal and clear to auscultation bilaterally. GASTROINTESTINAL: Abdomen soft, non-tender, non-distended. Normal active bowel sounds MUSCULOSKELETAL: Extremities without cyanosis, or edema. NEURO: Alert & Oriented x4 to person, place, time, situation. Moves all ext x4 PSYCH: Appropriate mood and affect. A/P Assessment and Plan 61-year-old female admitted for: Witnessed seizure - Appreciate neurology following. Since started on Keppra and MRI ordered. Acute renal failure- secondary to dehydration from GI loss. Resolving - Continue IV fluid. Hypertension - Continue home dose antihypertensives. Persistent nausea/vomiting prior history of chronicity. Possible cyclic vomiting syndrome. History of colon cancer with status post partial right colectomy. Advise outpatient follow-up. Discharge Planning Possible discharge later today based on MRI results and input from neurology. Segundo Guardado MD Nov 03, 2016 08:47
[2016-11-03 12:09] VITALS: BP 122/65; PULSE 64; RESP 20; TEMP 96.4; O2SAT 97
[2016-11-03] MEDS ORDERED: MORPHINE SULFATE 4 MG/ML INJ IV PUSH ONE (13:30)
[2016-11-03 16:05] VITALS: BP 125/66; PULSE 58; RESP 20; TEMP 98.3; O2SAT 97
[2016-11-03 20:12] VITALS: BP 151/74; PULSE 61; RESP 19; TEMP 99.6; O2SAT 96
[2016-11-03] MEDS ORDERED: GADODIAMIDE PF 287 MG/ML 5 ML VIAL (for RAD MRI) IVCONTRAST ONE (21:48)
[2016-11-03] MEDS: SODIUM CHLOR 0.9% 1000 ML INJ 1,000 ML IV SCH (22:10)
--- NOTE | 2016-11-03 22:15 | RADRPT ---
EXAM DATE/TIME: 11/03/2016 21:08 [facility] COMPARISON: CT BRAIN W/O CONTRAST, November 02, 2016, 2:20. INDICATIONS : Seizures. CONTRAST: 9 cc Omniscan (gadodiamide) IV MEDICAL HISTORY : Carcinoma, colon. SURGICAL HISTORY : Colon resection. Hemorrhoidectomy. Left breast lumpectomy. Left renal stent. ENCOUNTER: Subsequent ACUITY: 2 day PAIN SCORE: 3/10 LOCATION: cranial TECHNIQUE: Multiplanar, multisequence MRI of the brain was performed both prior to and following the administrat ion of paramagnetic contrast. FINDINGS: Faint, mostly subcortical T2 and flair signal abnormality seen posteriorly of both parietal lobes and both cerebellar hemispheres. There is no associated restricted diffusion or abnormal enhancement. Th chino areas are not apparent on the comparison noncontrast head CT. I don't have any prior MRIs. There is no restricted diffusion. No bleed, mass effect or midline shift. A few sub-4 mm foci of flai r signal abnormality seen in the periventricular white matter of the posterolateral hemispheres. CONCLUSION: 1. Faint T2 and flair signal abnormality of both parietal lobes and cerebellar hemispheres, nonspecif ic but suggestive of possible posterior reversible encephalopathy in the proper clinical setting. The re is no associated restricted diffusion here or elsewhere to substantiate presence of an ischemic ev ent. 2. Minimal chronic white matter changes. 3. Otherwise negative. No mass, mass effect, midline shift or bleed. Hemant Goodrich MD on November 03, 2016 at 22:08 Board Certified Radiologist. This report was verified electronically.
[2016-11-03] MEDS: oxyCODONE/ACETAMINOPHEN 7.5 MG/325 MG TAB PO PRN (22:17)
[2016-11-04 00:02] VITALS: BP 122/71; PULSE 50; RESP 18; TEMP 96.1; O2SAT 98
[2016-11-04 04:02] VITALS: BP 136/87; PULSE 55; RESP 20; TEMP 97.6; O2SAT 95
[2016-11-04] MEDS: HEPARIN SODIUM - SQ 10,000 UNITS/ML VIAL SQ SCH (05:26)
[2016-11-04] MEDS: SODIUM CHLOR 0.9% 1000 ML INJ 1,000 ML IV SCH ×2 (05:26→05:42)
[2016-11-04] MEDS: oxyCODONE/ACETAMINOPHEN 7.5 MG/325 MG TAB PO PRN (05:26)
[2016-11-04] MEDS ORDERED: LEVE500 PO (07:59)
[2016-11-04 08:00] VITALS: BP 147/76; PULSE 59; RESP 18; TEMP 97; O2SAT 96
--- NOTE | 2016-11-04 08:02 | HHI.DCPOC ---
Discharge Care Plan Diagnosis: (1) Seizure (2) Acute renal failure (3) HTN (hypertension) (4) Anxiety (5) Abdominal pain Goals to Promote Your Health * To prevent worsening of your condition and complications * To maintain your health at the optimal level Directions to Meet Your Goals Take your medications as prescribed Follow your dietary instruction Follow activity as directed Keep your appointments as scheduled Take your immunizations and boosters as scheduled If your symptoms worsen call your PCP, if no PCP go to Urgent Care Center or Emergency Room Smoking is Dangerous to Your Health. Avoid second hand smoke Call the 24-hour hour crisis hotline for domestic abuse at Segundo Guardado MD Nov 04, 2016 08:02
[2016-11-04] MEDS: DIAZEPAM 10 MG TAB PO SCH ×2 (08:04→12:07)
[2016-11-04] MEDS: cloNIDine HCL 0.2 MG TAB PO SCH (08:04)
[2016-11-04] MEDS: PANTOPRAZOLE SOD 40 MG DELAYED RELEASE TAB PO SCH (08:04)
[2016-11-04] MEDS: PARoxetine HCL 20 MG TAB PO SCH (08:04)
[2016-11-04] MEDS: levETIRAcetam 500 MG TAB PO SCH (08:04)
[2016-11-04] MEDS: SODIUM CHLORIDE 0.9% FLUSH 10 ML FLUSH IV FLUSH SCH (08:04)
--- NOTE | 2016-11-04 10:04 | HHI.DS ---
Discharge Summary Admission Date Nov 02, 2016 at 03:11 Discharge Date: Nov 04, 2016 Admitting Diagnosis Abdominal pain, dehydration, hypokalemia, sepsis (1) Seizure ICD Code: R56.9 - Unspecified convulsions (2) Acute renal failure ICD Code: N17.9 - Acute kidney failure, unspecified Status: Acute (3) HTN (hypertension) ICD Code: I10 - HTN (hypertension) Status: Chronic (4) Anxiety ICD Code: F41.9 - Anxiety Status: Chronic Procedures None Brief History - From Admission HPI from the admitting physician History from patient, ER physician communication, and review of medical records. Patient reported that she was brought to the hospital because she had a witnessed seizure at home. Her was a one who called 911. She does not remember the details of it but only remembered what her told her. She reports she was having nausea and vomiting starting Monday afternoon. She states she just could not stop these episodes of nausea and vomiting despite using Zofran. Home. Also reports of associated diarrhea. The symptoms continued all day Monday. The evening of Monday, she had an episode of seizure which was witnessed by . It is described as tonic-clonic seizures both the ambulance members and patient's history. CBC/BMP: 11/03/16 0415 11/03/16 0415 Significant Findings Laboratory Tests Test 11/02/16 00:45 11/02/16 03:15 11/02/16 06:10 11/02/16 15:34 White Blood Count 19.1 TH/MM3 (4.0-11.0) 18.6 TH/MM3 (4.0-11.0) Mean Corpuscular Hemoglobin 26.6 PG (27.0-34.0) 25.7 PG (27.0-34.0) Platelet Count 502 TH/MM3 (150-450) Neutrophils (%) (Auto) 86.0 % (16.0-70.0) 80.0 % (16.0-70.0) Lymphocytes (%) (Auto) 8.4 % (9.0-44.0) Neutrophils # (Auto) 16.4 TH/MM3 (1.8-7.7) 14.8 TH/MM3 (1.8-7.7) Monocytes # (Auto) 1.0 TH/MM3 (0-0.9) 1.3 TH/MM3 (0-0.9) Activated Partial Thromboplast Time 20.1 SEC (24.3-30.1) Creatinine 2.37 MG/DL (0.50-1.00) 1.69 MG/DL (0.50-1.00) Random Glucose 279 MG/DL (74-106) 133 MG/DL (74-106) Total Protein 9.0 GM/DL (6.4-8.2) Magnesium Level 2.8 MG/DL (1.5-2.5) Alkaline Phosphatase 175 U/L (45-117) 130 U/L (45-117) Potassium Level 2.8 MEQ/L (3.5-5.1) Chloride Level 94 MEQ/L (98-107) 108 MEQ/L (98-107) Carbon Dioxide Level 20.2 MEQ/L (21.0-32.0) Anion Gap 27 MEQ/L (5-15) Estimat Glomerular Filtration Rate 21 ML/MIN (>89) 31 ML/MIN (>89) Lactic Acid Level 13.6 mmol/L (0.4-2.0) 4.2 mmol/L (0.4-2.0) Total Creatine Kinase 212 U/L (26-192) Troponin I LESS THAN 0.02 NG/ML Salicylates Level 2.2 MG/DL (2.8-20.0) Acetaminophen Level LESS THAN 2.0 MCG/ML Hemoglobin 10.9 GM/DL (11.6-15.3) Hematocrit 34.4 % (35.0-46.0) Mean Corpuscular Hemoglobin Concent 31.7 % (32.0-36.0) Blood Urea Nitrogen 21 MG/DL (7-18) Test 11/03/16 04:15 White Blood Count 12.9 TH/MM3 (4.0-11.0) Red Blood Count 3.59 MIL/MM3 (4.00-5.30) Hemoglobin 9.3 GM/DL (11.6-15.3) Hematocrit 29.6 % (35.0-46.0) Mean Corpuscular Hemoglobin 26.0 PG (27.0-34.0) Mean Corpuscular Hemoglobin Concent 31.5 % (32.0-36.0) Neutrophils # (Auto) 9.0 TH/MM3 (1.8-7.7) Creatinine 1.16 MG/DL (0.50-1.00) Total Protein 5.5 GM/DL (6.4-8.2) Albumin 2.6 GM/DL (3.4-5.0) Calcium Level 8.2 MG/DL (8.5-10.1) Chloride Level 112 MEQ/L (98-107) Estimat Glomerular Filtration Rate 48 ML/MIN (>89) Imaging Last Impressions Brain MRI 11/03/16 0000 Signed Impressions: Service Date/Time: October 21:08 - CONCLUSION: 1. Faint T2 and flair signal abnormality of both parietal lobes and cerebellar hemispheres, nonspecific but suggestive of possible posterior reversible encephalopathy in the proper clinical setting. There is no associated restricted diffusion here or elsewhere to substantiate presence of an ischemic event. 2. Minimal chronic white matter changes. 3. Otherwise negative. No mass, mass effect, midline shift or bleed. Hemant Goodrich MD Head CT 11/02/1629 Signed Impressions: Service Date/Time: Wednesday, November 02, 2016 02:20 - CONCLUSION: 1. No acute intracranial abnormalities. Landry Dodson MD Chest X-Ray 11/02/1629 Signed Impressions: Service Date/Time: Wednesday, November 02, 2016 01:04 - CONCLUSION: 1. No active disease. Landry Dodson MD Abdomen/Pelvis CT 11/02/1629 Signed Impressions: Service Date/Time: Wednesday, November 02, 2016 02:23 - CONCLUSION: 1. No acute findings in abdomen and pelvic CT. Postop partial right colectomy. No obstruction or free fluid. Landry Dodson MD PE at Discharge GENERAL: This is a well-nourished, well-developed patient, in no apparent distress. CARDIOVASCULAR: Normal rate and regular rhythm without murmurs, gallops, or rubs. RESPIRATORY: Good respiratory efforts. Breath sounds equal and clear to auscultation bilaterally. GASTROINTESTINAL: Abdomen soft, non-tender, non-distended. Normal active bowel sounds MUSCULOSKELETAL: Extremities without cyanosis, or edema. NEURO: Alert & Oriented x4 to person, place, time, situation. Moves all ext x4 PSYCH: Appropriate mood and affect. Pt update on day of discharge Patient reports she is feeling ok. Did not sleep well last night due to chronic pain. Wants to go home. Hospital Course 61-year-old female admitted for witnessed seizures, acute renal failure. The patient was followed by neurology. She had a normal EEG but are nonspecific MRI. She was treated with Keppra and did not have any further seizures. I discussed with neurology. She will follow up outpatient with neurology for repeat MRI. Regarding acute renal failure, this was likely secondary to dehydration from GI loss. Patient has persistent, chronic nausea and vomiting. Renal functions improved with IV fluid. Her home medications were continued for the rest of her chronic conditions. The patient is discharged home in good condition. Pt Condition on Discharge: Good Discharge Disposition: Discharge Home Discharge Time: <= 30 minutes Discharge Instructions Follow up Referrals: Neurology - 2 Weeks with Rinku Bran PhD MD PCP Follow-up New Medications: Levetiracetam (Keppra) 500 Mg Tab 500 MG PO Q12HR, #60 TAB Continued Medications: Amlodipine (Norvasc) 10 Mg Tab 10 MG PO DAILY for Blood Pressure Management, #30 TAB 0 Refills Clonidine (Catapres) 0.2 Mg Tab 0.2 MG PO Q12HR for Blood Pressure Management, #60 TAB 0 Refills Diazepam (Diazepam) 10 Mg Tab 10 MG PO TID, TAB 0 Refills Lisinopril (Lisinopril) 20 Mg Tab 20 MG PO BID, #30 TAB 0 Refills Ondansetron Odt (Zofran Odt) 4 Mg Tab 4 MG SL TID PRN for Nausea/Vomiting, #30 TAB 0 Refills Oxycodone-Acetaminophen (Percocet) 7.5-325 mg Tab 1 TAB PO Q4H PRN for PAIN, #20 TAB 0 Refills Pantoprazole (Protonix) 40 Mg Tab 40 MG PO DAILY for Reflux, #30 TAB 0 Refills Paroxetine (Paxil) 10 Mg Tab 40 MG PO DAILY, #30 TAB 0 Refills Segundo Guardado MD Nov 04, 2016 10:04
[2016-11-04 12:00] VITALS: BP 117/69; PULSE 53; RESP 18; TEMP 98.4; O2SAT 95
== END 2016-11-04 14:36 | disposition home or self-care (01) | DRG 101 ==
LOC: NEPC 23:44 → NEDA 11-02 03:11 → HOCA 11-02 08:45
PROVIDERS: ADMIT Family Medicine; ATTEND Family Medicine
DX: G40.89 Other seizures (principal); N17.9 Acute kidney failure, unspecified; K91.2 Postsurgical malabsorption, not elsewhere classified; E87.2 Acidosis; I70.1 Atherosclerosis of renal artery; I10 Essential (primary) hypertension; Z85.038 Personal history of other malignant neoplasm of large intestine; F43.10 Post-traumatic stress disorder, unspecified; F32.9 Major depressive disorder, single episode, unspecified; E87.6 Hypokalemia; E86.0 Dehydration; F41.9 Anxiety disorder, unspecified
CPT/HCPCS: 70450; 70553; 71010; 74176; 80053; 80307; 82550; 82552; 82948; 83605; 83690; 83735; 83880; 84484; 85025; 85610; 85730; 87040; 93005; 95819; 96361; 96365; 96375; 96376; 99285; J1170; A9579; J1644; J2270; J2405; J2543; J3370; J3480; J7030; J7040; J7050

== ENCOUNTER 2016-11-18 22:50 | Inpatient (IN) | payer MEDICAID ==
[~2016-11-18] VITALS: Ht 152.4 cm; Wt 47.2 kg
[2016-11-18 22:50] VITALS: BP 143/96; PULSE 145; RESP 18; TEMP 99.7; O2SAT 95
[~2016-11-18 22:50] MED LIST changes: -CELE20TA PO; +LEVE500 PO; -METR-1 PO; -OMEP40CA2 PO; +PAXI10TA2 PO; +PROT40TA PO
[2016-11-18] MEDS ORDERED: SODIUM CHLOR 0.9% 1000 ML INJ 1,000 ML IV SCH (23:09)
[2016-11-18 23:11] VITALS: BP 183/90; PULSE 130; RESP 24; O2SAT 94
[2016-11-18] MEDS ORDERED: ONDANSETRON HCL 4 MG/2 ML VIAL IVP ONE (23:15)
[2016-11-18] MEDS ORDERED: SODIUM CHLOR 0.9% 1000 ML INJ 1,000 ML IV ONE (23:15)
[2016-11-18 23:24] LABS: BLOOD, URINE NEG (NEG); GLUCOSE,URINE 250 mg/dL (NEG); KETONE, URINE NEG (NEG); NITRITE,URINE NEG (NEG); PH, URINE 7.5 (5.0-8.5)
[2016-11-18 23:25] LABS: HEMATOCRIT 47.8 % (35.0-46.0); MEAN CELL VOLUME 78.8 FL (80.0-100.0); MEAN CORPUSCULAR HEMOGLOBIN 25.7 PG (27.0-34.0); MEAN CORPUSCULAR HGB CONC 32.6 % (32.0-36.0); PLATELET COUNT 597 TH/MM3 (150-450); RED BLOOD COUNT 6.06 MIL/MM3 (4.00-5.30); RED CELL DISTRIBUTION WIDTH 14.7 % (11.6-17.2); WHITE BLOOD COUNT 19.2 TH/MM3 (4.0-11.0)
--- NOTE | 2016-11-18 23:25 | PD ---
HPI Chief Complaint: GI Complaint Time Seen by Provider: 23:01 Travel History International Travel<30 days: No Contact w/Intl Traveler<30days: No Traveled to known affect area: No History of Present Illness HPI Patient is a 61-year-old female with history of hypertension, diabetes, renal artery stenosis, anxiety, seizures, colon cancer with history of partial colectomy as well as appendectomy, presents to emergency room with complaints of abdominal pain with nausea vomiting and diarrhea. As per patient's , she has been sick all day. Reports that she has been nauseous and has been vomiting, she was unable to eat or drink anything. Patient's reports that patient appeared lethargic tonight, reports that he was concerned that she may have a seizure from electrolyte abnormalities so he brought her to the ER for evaluation. reports the patient is currently being worked up by Dr. Mejía for GI bleed as she has anemia. Reports that they are working to get her a colonscopy as well as EGD scheduled. Patient at this time reports pain to the lower abdomen with associated nausea and vomiting. Denies any chest pain /sob. PFSH Past Medical History Arthritis: Yes (BACK AND HIPS) Anxiety: Yes (PTSD) Depression: Yes Cancer: Yes (COLON) Cardiovascular Problems: Yes Chemotherapy: No Diminished Hearing: No Endocrine: No Gastrointestinal Disorders: Yes (COLON CANCER AND COLECTOMY IN 2009 DUODENITIS) Genitourinary: Yes (RENAL STENT PLACEMENT) Hypertension: Yes Immune Disorder: No Implanted Vascular Access Dvce: No Musculoskeletal: Yes Neurologic: Yes Psychiatric: Yes (PTSD) Reproductive: No Respiratory: No Immunizations Current: Yes Radiation Therapy: No Seizures: Yes Menopausal: Yes : 1 Para: 1 Miscarriage: 0 Tubal Ligation: Yes Past Surgical History Abdominal Surgery: Yes (10'' COLECTOMY, HEMORHROID) Appendectomy: Yes Gynecologic Surgery: Yes (LT LUMPECTOMY) Neurologic Surgery: Yes (LT RENAL ARTERY STENT) Pacemaker: No Other Surgery: Yes Social History Alcohol Use: No Tobacco Use: No Substance Use: No Allergies-Medications (Allergen,Severity, Reaction): Coded Allergies: codeine (Unverified Allergy, Severe, Nausea/Vomiting, 11/18/16) diphenhydramine (Unverified Allergy, Severe, Hypertension, 11/18/16) hydrocodone (Unverified Allergy, Severe, Nausea/Vomiting, 11/18/16) Reported Meds & Prescriptions Reported Meds & Active Scripts Active Keppra (Levetiracetam) 500 Mg Tab 500 Mg PO Q12HR Percocet (Oxycodone-Acetaminophen) 7.5-325 mg Tab 1 Tab PO Q4H PRN Reported Protonix (Pantoprazole Sodium) 40 Mg Tab 40 Mg PO DAILY Paxil (Paroxetine HCl) 10 Mg Tab 40 Mg PO DAILY Zofran Odt (Ondansetron Odt) 4 Mg Tab 4 Mg SL TID PRN Norvasc (Amlodipine Besylate) 10 Mg Tab 10 Mg PO DAILY Lisinopril 20 Mg Tab 20 Mg PO BID Diazepam 10 Mg Tab 10 Mg PO TID Catapres (Clonidine) 0.2 Mg Tab 0.2 Mg PO Q12HR Review of Systems General / Constitutional: No: Fever Eyes: No: Visual changes HENT: No: Headaches Cardiovascular: No: Chest Pain or Discomfort Respiratory: No: Shortness of Breath Gastrointestinal: Positive: Nausea, Vomiting, Diarrhea, Abdominal Pain Genitourinary: No: Dysuria Musculoskeletal: No: Pain Skin: No Rash Neurologic: Positive: Weakness Psychiatric: No: Depression Endocrine: No: Polydipsia Hematologic/Lymphatic: No: Easy Bruising Physical Exam Narrative GENERAL: moderate distress SKIN: Focused skin assessment warm/dry. Tachy appearing HEAD: Atraumatic. Normocephalic. EYES: Pupils equal and round. No scleral icterus. No injection or drainage. ENT: No nasal bleeding or discharge. Mucous membranes pink and dry. NECK: Trachea midline. No JVD. CARDIOVASCULAR: Tachycardic. No murmur appreciated. RESPIRATORY: No accessory muscle use. Clear to auscultation. Breath sounds equal bilaterally. GASTROINTESTINAL: Abdomen soft, diffuse abdominal pain with no guarding or rebound pain on exam MUSCULOSKELETAL: No obvious deformities. No clubbing. No cyanosis. No edema. NEUROLOGICAL: Awake and alert. No obvious cranial nerve deficits. PSYCHIATRIC: Flat mood and affect Data Data Last Documented VS Vital Signs Date Time Temp Pulse Resp B/P (MAP) Pulse Ox O2 Delivery O2 Flow Rate FiO2 11/18/16 22:50 99.7 145 18 143/96 (112) 95 Orders Orders Complete Blood Count With Diff (11/18/16 23:09) Comprehensive Metabolic Panel (11/18/16 23:09) Lipase (11/18/16 23:09) Lactic Acid (11/18/16 23:09) Prothrombin Time / Inr (Pt) (11/18/16 23:09) Urinalysis - C+S If Indicated (11/18/16 23:09) Ct Abd/Pel W Iv Contrast(Rout) (11/18/16 23:09) Iv Access Insert/Monitor (11/18/16 23:09) Ecg Monitoring (11/18/16 23:09) Oximetry (11/18/16 23:09) Ondansetron Inj (Zofran Inj) (11/18/16 23:15) Sodium Chlor 0.9% 1000 Ml Inj (Ns 1000 M (11/18/16 23:09) Sodium Chloride 0.9% Flush (Ns Flush) (11/18/16 23:15) Electrocardiogram (11/18/16 23:09) Chest, Single Ap (11/18/16 23:09) Blood Culture (11/18/16 23:09) Sodium Chlor 0.9% 1000 Ml Inj (Ns 1000 M (11/18/16 23:15) Ct Abd/Pel W/O Iv Contrast (11/18/16 23:47) Vancomycin Inj (Vancomycin Inj) (11/19/16 00:00) Piperacil-Tazo 3.375 Gm Premix (Zosyn 3. (11/19/16 00:00) Morphine Inj (Morphine Inj) (11/19/16 00:00) Labs Laboratory Tests Test 11/18/16 23:10 11/18/16 23:25 White Blood Count 19.2 TH/MM3 Red Blood Count 6.06 MIL/MM3 Hemoglobin 15.6 GM/DL Hematocrit 47.8 % Mean Corpuscular Volume 78.8 FL Mean Corpuscular Hemoglobin 25.7 PG Mean Corpuscular Hemoglobin Concent 32.6 % Red Cell Distribution Width 14.7 % Platelet Count 597 TH/MM3 Mean Platelet Volume 9.2 FL CBC Comment AUTO DIFF Differential Total Cells Counted 100 Neutrophils % (Manual) 85 % Band Neutrophils % 1 % Lymphocytes % 9 % Monocytes % 5 % Neutrophils # (Manual) 16.5 TH/MM3 Differential Comment FINAL DIFF MANUAL Platelet Estimate HIGH Platelet Morphology Comment NORMAL Urine Color YELLOW Urine Turbidity CLEAR Urine pH 7.5 Urine Specific [place] 1.016 Urine Protein 100 mg/dL Urine Glucose (UA) 250 mg/dL Urine Ketones NEG mg/dL Urine Occult Blood NEG Urine Nitrite NEG Urine Bilirubin NEG Urine Leukocyte Esterase NEG Urine RBC 0-3 /hpf Urine WBC 0-2 /hpf Urine Squamous Epithelial Cells 0-5 /hpf Urine Bacteria NONE /hpf Microscopic Urinalysis Comment CULT NOT INDICATED Blood Urea Nitrogen 28 MG/DL Creatinine 2.90 MG/DL Random Glucose 240 MG/DL Total Protein 10.0 GM/DL Albumin 4.2 GM/DL Calcium Level 10.7 MG/DL Alkaline Phosphatase 256 U/L Aspartate Amino Transf (AST/SGOT) 30 U/L Alanine Aminotransferase (ALT/SGPT) 23 U/L Total Bilirubin 0.4 MG/DL Sodium Level 137 MEQ/L Potassium Level 3.9 MEQ/L Chloride Level 89 MEQ/L Carbon Dioxide Level 27.3 MEQ/L Anion Gap 21 MEQ/L Estimat Glomerular Filtration Rate 17 ML/MIN Lipase 484 U/L Prothrombin Time 10.8 SEC Prothromb Time International Ratio 1.0 RATIO MDM Medical Decision Making Medical Screen Exam Complete: Yes Emergency Medical Condition: Yes Medical Record Reviewed: Yes Interpretation(s) EKG at 2351: Sinus tachcardia at 104bpm, qt/qtc: 371/432 Vital Signs Date Time Temp Pulse Resp B/P (MAP) Pulse Ox O2 Delivery O2 Flow Rate FiO2 11/18/16 22:50 99.7 145 18 143/96 (112) 95 Differential Diagnosis Differential includes electrolyte abnormality, colitis, sbo, gastritis, uti Narrative Course Patient is a 61-year-old female who presents to emergency room for evaluation of abdominal pain with nausea, vomiting and diarrhea all day today. Patient tachycardia and cachetic on exam. She does appear very dehydrated. Patient was placed on a monitoring and evaluation advisor upon arrival to the emergency room. Lab work including CBC, CMP, Lipase, Lactic acid ordered. CT of abdomen and pelvis also ordered. IVF and antiemetics administered. Vital Signs Date Time Temp Pulse Resp B/P (MAP) Pulse Ox O2 Delivery O2 Flow Rate FiO2 11/18/16 22:50 99.7 145 18 143/96 (112) 95 CBC & BMP Diagram 11/18/16 23:10 Total Protein 10.0 H, Albumin 4.2, Calcium Level 10.7 H, Alkaline Phosphatase 256 H, Aspartate Amino Transf (AST/SGOT) 30, Alanine Aminotransferase (ALT/SGPT ) 23, Total Bilirubin 0.4 patient with a 19.2 wbc, tachycardic, she has been pancultured, vanco and zosyn ordered as she does have SIRS criteria CR 2.90 which is elevated from baseline - past cr on 11/03/16 was 1.16 - patient with VICK CT of abdomen and pelvis pending at this time. Patient signed out to Dr. Crawford at change of shift. Patient pending lab work as well as ct and admission to hospital Diagnosis Primary Impression: Leukocytosis Qualified Codes: D72.829 - Elevated white blood cell count, unspecified Additional Impressions: Acute renal failure Qualified Codes: N17.9 - Acute kidney failure, unspecified SIRS (systemic inflammatory response syndrome) Admitting Information Admitting Physician Requests: Admit (is) Linda Persaud DO Nov 18, 2016 23:25
[2016-11-18 23:28] LABS: HEMO FLAGS AUTO DIFF
[2016-11-18 23:36] LABS: CHLORIDE 89 MEQ/L (98-107); SODIUM (NA) 137 MEQ/L (136-145)
[2016-11-18 23:39] LABS: ANION GAP 21 MEQ/L (5-15); BICARBONATE 27.3 MEQ/L (21.0-32.0)
[2016-11-18 23:40] LABS: BLOOD UREA NITROGEN 28 MG/DL (7-18); POTASSIUM 3.9 MEQ/L (3.5-5.1)
[2016-11-18 23:41] LABS: URINE COLOR YELLOW (YELLW/STRAW)
[2016-11-18 23:42] LABS: ALT (GPT) 23 U/L (10-53); AST (GOT) 30 U/L (15-37); COMMENT (UR) CULT NOT INDICATED; CULTURE IF INDICATED CULT NOT INDICATED; GLOMERULAR FILTRATION RATE 17 ML/MIN (>89); RBC, URINE 0-3 /hpf (0-3); SQUAMOUS EPITHELIAL CELL URINE 0-5 /hpf (0-5); WBC, URINE 0-2 /hpf (0-5)
[2016-11-18 23:44] LABS: TOTAL BILIRUBIN ADULT 0.4 MG/DL (0.2-1.0)
[2016-11-18 23:45] LABS: ALKALINE PHOSPHATASE 256 U/L (45-117)
[2016-11-18] MEDS: SODIUM CHLORIDE 0.9% FLUSH 10 ML FLUSH IV FLUSH PRN (23:49)
[2016-11-18 23:51] LABS: PROTHROMBIN TIME - PATIENT 10.8 SEC (9.8-11.6)
[2016-11-18 23:51] LABS: BANDS 1 % (0-6); NEUTROPHIL # MANUAL DIFF 16.5 TH/MM3 (1.8-7.7); PLATELET ESTIMATE SMEAR HIGH (NORMAL); PLATELET MORPHOLOGY NORMAL (NORMAL); POLYS (SEG NEUTROPHILS) 85 % (16-70); SCAN/DIFF FINAL DIFF MANUAL; WBC DIFF SAMPLE 100
[2016-11-19] VITALS (20 sets, daily range): BP systolic 114–208; BP diastolic 54–107; PULSE 64–126; RESP 16–28; TEMP 98.3–98.8; O2SAT 97–99
[2016-11-19] MEDS ORDERED: PIPERACIL-TAZO 3.375 GM PREMIX 50 ML IV ONE
[2016-11-19] MEDS ORDERED: VANCOMYCIN INJ 650 MG in SODIUM CHLOR 0.9% 250 ML INJ 250 ML IV ONE ×2
--- NOTE | 2016-11-19 00:04 | RADRPT ---
EXAM DATE/TIME: 11/18/2016 23:26 [facility] COMPARISON: CHEST SINGLE AP, November 02, 2016, 1:04. INDICATIONS : Shortness of breath. MEDICAL HISTORY : Carcinoma, colon. Hypertension SURGICAL HISTORY : Colon resection. Hemorrhoidectomy. Left breast lumpectomy. Left renal stent ENCOUNTER: Initial ACUITY: 1 day PAIN SCORE: 7/10 LOCATION: Bilateral chest FINDINGS: A single view of the chest demonstrates the lungs to be symmetrically aerated without evidence of mas s, infiltrate or effusion. The cardiomediastinal contours are unremarkable. Osseous structures are intact. CONCLUSION: 1. No active disease. Mild scoliosis. Landry Dodson MD on November 19, 2016 at 0:01 Board Certified Radiologist. This report was verified electronically.
--- NOTE | 2016-11-19 00:54 | RADRPT ---
EXAM DATE/TIME: 11/19/2016 00:10 [facility] COMPARISON: CT ABDOMEN & PELVIS W/O CONTRAST, November 02, 2016, 2:23. INDICATIONS : Dehydration, lower abdominal pain and vomiting today. ORAL CONTRAST: No oral contrast ingested. RADIATION DOSE: 6.64 CTDIvol (mGy) MEDICAL HISTORY : Hypertension. Carcinoma, colon. Cardiovascular diseaseAnemia SURGICAL HISTORY : Colon resection. Appendectomy.renal artery stent ENCOUNTER: Initial ACUITY: 1 day PAIN SCALE: 8/10 LOCATION: lower quadrant abdomen TECHNIQUE: Volumetric scanning of the abdomen and pelvis was performed. Using automated exposure control and ad justment of the mA and/or kV according to patient size, radiation dose was kept as low as reasonably achievable to obtain optimal diagnostic quality images. DICOM format image data is available electro nically for review and comparison. FINDINGS: Lung bases are clear. No acute findings in the liver, spleen, adrenals, kidneys or pancreas. The stom ach is fairly markedly distended with fluid and a small amount of air. No acute bony abnormalities. Albrecht catheter in the bladder. Postop changes of partial right colectomy and appendectomy. No evidence for small bowel obstruction. CONCLUSION: 1. Distended stomach. Differential diagnosis includes a mechanical or functional gastric outlet obstr uction. 2. No evidence for small bowel obstruction. Postop partial right colectomy and appendectomy. Landry Dodson MD on November 19, 2016 at 0:48 Board Certified Radiologist. This report was verified electronically.
[2016-11-19] MEDS: METOPROLOL TARTRATE 5 MG/5 ML VIAL IVS SCH ×2 (00:59→03:06)
--- NOTE | 2016-11-19 01:05 | PD ---
Physical Exam Time Seen by Provider: 01:[address] Persaud left this patient with me to check the results of the CT and blood work and admit the patient. Data Data Last Documented VS Vital Signs Date Time Temp Pulse Resp B/P (MAP) Pulse Ox O2 Delivery O2 Flow Rate FiO2 11/19/16 00:29 126 20 181/104 (129) 98 Nasal Cannula 2.00 11/18/16 22:50 99.7 Orders Orders Complete Blood Count With Diff (11/18/16 23:09) Comprehensive Metabolic Panel (11/18/16 23:09) Lipase (11/18/16 23:09) Lactic Acid (11/18/16 23:09) Prothrombin Time / Inr (Pt) (11/18/16 23:09) Urinalysis - C+S If Indicated (11/18/16 23:09) Iv Access Insert/Monitor (11/18/16 23:09) Ecg Monitoring (11/18/16 23:09) Oximetry (11/18/16 23:09) Ondansetron Inj (Zofran Inj) (11/18/16 23:15) Sodium Chlor 0.9% 1000 Ml Inj (Ns 1000 M (11/18/16 23:09) Sodium Chloride 0.9% Flush (Ns Flush) (11/18/16 23:15) Electrocardiogram (11/18/16 23:09) Chest, Single Ap (11/18/16 23:09) Blood Culture (11/18/16 23:09) Sodium Chlor 0.9% 1000 Ml Inj (Ns 1000 M (11/18/16 23:15) Ct Abd/Pel W/O Iv Contrast (11/18/16 23:47) Vancomycin Inj (Vancomycin Inj) (11/19/16 00:00) Piperacil-Tazo 3.375 Gm Premix (Zosyn 3. (11/19/16 00:00) Morphine Inj (Morphine Inj) (11/19/16 00:00) Urinary Catheter - Remove (11/19/16 00:46) Metoprolol Tartrate Inj (Lopressor Inj) (11/19/16 01:00) Urinary Catheter Insert/Apply (11/19/16 01:06) Admit Order (Ed Use Only) (11/19/16 01:22) Labs Laboratory Tests Test 11/18/16 23:10 11/18/16 23:25 11/18/16 23:59 White Blood Count 19.2 TH/MM3 Red Blood Count 6.06 MIL/MM3 Hemoglobin 15.6 GM/DL Hematocrit 47.8 % Mean Corpuscular Volume 78.8 FL Mean Corpuscular Hemoglobin 25.7 PG Mean Corpuscular Hemoglobin Concent 32.6 % Red Cell Distribution Width 14.7 % Platelet Count 597 TH/MM3 Mean Platelet Volume 9.2 FL CBC Comment AUTO DIFF Differential Total Cells Counted 100 Neutrophils % (Manual) 85 % Band Neutrophils % 1 % Lymphocytes % 9 % Monocytes % 5 % Neutrophils # (Manual) 16.5 TH/MM3 Differential Comment FINAL DIFF MANUAL Platelet Estimate HIGH Platelet Morphology Comment NORMAL Urine Color YELLOW Urine Turbidity CLEAR Urine pH 7.5 Urine Specific [place] 1.016 Urine Protein 100 mg/dL Urine Glucose (UA) 250 mg/dL Urine Ketones NEG mg/dL Urine Occult Blood NEG Urine Nitrite NEG Urine Bilirubin NEG Urine Leukocyte Esterase NEG Urine RBC 0-3 /hpf Urine WBC 0-2 /hpf Urine Squamous Epithelial Cells 0-5 /hpf Urine Bacteria NONE /hpf Microscopic Urinalysis Comment CULT NOT INDICATED Blood Urea Nitrogen 28 MG/DL Creatinine 2.90 MG/DL Random Glucose 240 MG/DL Total Protein 10.0 GM/DL Albumin 4.2 GM/DL Calcium Level 10.7 MG/DL Alkaline Phosphatase 256 U/L Aspartate Amino Transf (AST/SGOT) 30 U/L Alanine Aminotransferase (ALT/SGPT) 23 U/L Total Bilirubin 0.4 MG/DL Sodium Level 137 MEQ/L Potassium Level 3.9 MEQ/L Chloride Level 89 MEQ/L Carbon Dioxide Level 27.3 MEQ/L Anion Gap 21 MEQ/L Estimat Glomerular Filtration Rate 17 ML/MIN Lipase 484 U/L Prothrombin Time 10.8 SEC Prothromb Time International Ratio 1.0 RATIO Lactic Acid Level 6.9 mmol/L [facility] Medical Record Reviewed: Yes Supervised Visit with JOHNNY: No Interpretation(s) Urinalysis is normal and culture is not indicated. The CBC shows a white count of 19,000 with apparent hemoconcentration and a hemoglobin of 15.6 and hematocrit of 47.8. There are 85% neutrophils which include 1 band. The coagulation profile is normal. The lactic acid is 6.9. The lipase is 484. The BUN is 28 and creatinine 2.9 with a GFR of 17 and glucose of 240. The total protein is 10.0. The calcium is 10.7 and alkaline phosphatase 256. The anion gap is 21. Differential Diagnosis Small bowel obstruction, pancreatitis, dehydration, electrolyte disorder, sepsis , renal insufficiency, anemia Narrative Course The patient is dehydrated, the apparent hemoconcentration of the hemoglobin and hematocrit as well as the increased BUN and her history and physical exam suggests at least moderate dehydration. She does have sepsis, her lactic acid is 6.9. I discussed the patient with Dr. Pal, the patient will be admitted to him. Dr. Santana declined the patient feeling the patient is too sick for the [facility] service. The patient will be transferred to [facility]. Diagnosis Primary Impression: Leukocytosis Qualified Codes: D72.829 - Elevated white blood cell count, unspecified Additional Impressions: Acute renal failure Qualified Codes: N17.9 - Acute kidney failure, unspecified Severe sepsis Enmanuel Crawford MD Nov 19, 2016 01:05
[2016-11-19] MEDS ORDERED: MORPHINE SULFATE 4 MG/ML INJ IV PUSH ONE ×2 (03:00)
[2016-11-19] MEDS ORDERED: ONDANSETRON HCL 4 MG/2 ML VIAL IV ONE (03:00)
[2016-11-19] MEDS: SODIUM CHLORIDE 0.9% FLUSH 10 ML FLUSH IV FLUSH PRN ×2 (03:07→05:38)
[2016-11-19] MEDS ORDERED: SODIUM CHLOR 0.9% 1000 ML INJ 1,000 ML IV ONE ×2 (04:52)
[2016-11-19] MEDS ORDERED: SODIUM CHLOR 0.9% 1000 ML INJ 1,000 ML IV SCH (04:52)
[2016-11-19] MEDS ORDERED: SODIUM CHLOR 0.9% 1000 ML INJ 100 ML IV ONE (04:52)
[2016-11-19] MEDS ORDERED: ACETAMINOPHEN 325 MG TAB PO PRN (05:00)
[2016-11-19] MEDS ORDERED: MAGNESIUM HYDROXIDE SUSP 30 ML CUP PO PRN (05:00)
[2016-11-19] MEDS ORDERED: LACTULOSE SYRUP 20 GM/30 ML CUP PO PRN (05:00)
[2016-11-19] MEDS ORDERED: BISACODYL 10 MG SUPP RECTAL PRN (05:00)
[2016-11-19] MEDS ORDERED: ONDANSETRON HCL 4 MG/2 ML VIAL IV PUSH PRN (05:00)
[2016-11-19] MEDS ORDERED: SENNOSIDES 8.6 MG TAB PO PRN (05:00)
[2016-11-19] MEDS ORDERED: RESP: ALBUTEROL 2.5 MG/IPRATROPIUM 0.5 MG NEB (PRN) INH ×2 (05:00)
[2016-11-19] MEDS ORDERED: MISCELLANEOUS NURSING INFORMATION XX SCH ×2 (05:00)
[2016-11-19] MEDS ORDERED: CHLORHEXIDINE GLUCONATE 2 % 1 PACK (2 CLOTHS) TOP PRN ×2 (05:00)
--- NOTE | 2016-11-19 05:05 | HHI.HP ---
HPI Service Critical Care Medicine Primary Care Physician No Primary Care Physician Admission Diagnosis sepsis, dehydration, intractable abdominal pain/vomiting Diagnosis: Travel History International Travel<30 Days: No Contact w/Intl Traveler <30 Da: No Traveled to Known Affected Are: No History of Present Illness 61-year-old female with history of hypertension, renal artery stenosis, anxiety , colon cancer with history of partial colectomy as well as appendectomy, presents with complaints of abdominal pain with nausea vomiting and diarrhea. She tells me that it is been going on and off since 1996, last a few she has lost about 20 pounds which she finally regained back. Per report she has been sick all day. Reports that she has been nauseous and has been vomiting, she was unable to eat or drink anything. Patient's reports that patient appeared lethargic tonight, reports that he was concerned that she may have a seizure from electrolyte abnormalities so he brought her to the ER for evaluation. reports the patient is currently being worked up by Dr. Mejía for GI bleed as she has anemia. Reports that they are working to get her a colonscopy as well as EGD scheduled. Patient at this time reports pain to the lower abdomen with associated nausea and vomiting. She was admitted to weeks ago with similar symptoms, she says that due to severe dehydration she had episode of seizure. She was started on Keppra however she didn't tolerate it since it made her more nauseous. Her primary care physician suggested to discontinue the medication since she had only one episode of seizure and has no prior history of seizure disorder. Denies any chest pain/sob. Review of Systems Constitutional: COMPLAINS OF: Diaphoretic episodes, Change in appetite, DENIES : Fatigue, Fever, Weight gain, Weight loss, Chills, Dizziness, Night Sweats Endocrine: DENIES: Abnorml menstrual pattern, Heat/cold intolerance, Polydipsia , Polyuria, Polyphagia Eyes: DENIES: Blurred vision, Diplopia, Eye inflammation, Eye pain, Vision loss , Photosensitivity, Double Vision Ears, nose, mouth, throat: DENIES: Tinnitus, Hearing loss, Vertigo, Nasal discharge, Oral lesions, Throat pain, Hoarseness, Ear Pain, Running Nose, Epistaxis, Sinus Pain, Toothache, Odynophagia Respiratory: DENIES: Apneas, Cough, Snoring, Wheezing, Hemoptysis, Sputum production, Shortness of breath Cardiovascular: DENIES: Chest pain, Palpitations, Syncope, Dyspnea on Exertion , PND, Lower Extremity Edema, Orthopnea, Claudication Gastrointestinal: COMPLAINS OF: Abdominal pain, Nausea, Vomiting, DENIES: Black stools, Bloody stools, Constipation, Diarrhea, Difficulty Swallowing, Anorexia Genitourinary: DENIES: Abnormal vaginal bleeding, Dysmenorrhea, Dyspareunia, Sexual dysfunction, Urinary frequency, Urinary incontinence, Urgency, Hematuria , Dysuria, Nocturia, Vaginal discharge Musculoskeletal: DENIES: Joint pain, Muscle aches, Stiffness, Joint Swelling, Back pain, Neck pain Integumentary: DENIES: Abnormal pigmentation, Pruritus, Rash, Nail changes, Breast masses, Breast skin changes, Nipple discharge Hematologic/lymphatic: DENIES: Bruising, Lymphadenopathy Immunologic/allergic: DENIES: Eczema, Urticaria Neurologic: DENIES: Abnormal gait, Headache, Localized weakness, Paresthesias, Seizures, Speech Problems, Tremor, Poor Balance Psychiatric: COMPLAINS OF: Anxiety, Confusion, Mood changes, Depression, Hallucinations, Agitation, Suicidal Ideation, Homicidal Ideation, Delusions Past Family Social History Allergies: Coded Allergies: codeine (Unverified Allergy, Severe, Nausea/Vomiting, 11/18/16) diphenhydramine (Unverified Allergy, Severe, Hypertension, 11/18/16) hydrocodone (Unverified Allergy, Severe, Nausea/Vomiting, 11/18/16) Past Medical History Hypertension Anxiety Renal artery stenosis -status post stent placement History of colon cancer - status post partial [place] [address] De Oliveira Past Surgical History Partial colectomy Appendectomy Reported Medications Reported Meds & Active Scripts Active Reported Protonix (Pantoprazole Sodium) 40 Mg Tab 40 Mg PO DAILY Paxil (Paroxetine HCl) 10 Mg Tab 40 Mg PO DAILY Zofran Odt (Ondansetron Odt) 4 Mg Tab 4 Mg SL TID PRN Norvasc (Amlodipine Besylate) 10 Mg Tab 10 Mg PO DAILY Lisinopril 20 Mg Tab 20 Mg PO BID Diazepam 10 Mg Tab 10 Mg PO TID Catapres (Clonidine) 0.2 Mg Tab 0.2 Mg PO Q12HR Active Ordered Medications Current Medications Medications (Trade) Dose Ordered Sig/Sveta Route PRN Reason Start Time Stop Time Status Last Admin Dose Admin Sodium Chloride (NS Flush) 2 ml UNSCH PRN IV FLUSH FLUSH AFTER USING IV ACCESS 11/18/16 23:15 11/19/16 03:07 Amlodipine Besylate (Norvasc) 10 mg DAILY PO 11/19/16 09:00 Clonidine (Catapres) 0.2 mg Q12HR PO 11/19/16 09:00 Diazepam (Valium) 10 mg TID PO 11/19/16 09:00 Paroxetine HCl (Paxil) 40 mg DAILY PO 11/19/16 09:00 Sodium Chloride 1,000 ml @ 125 mls/hr Q8H IV 11/19/16 04:52 Sodium Chloride (NS Flush) 2 ml UNSCH PRN IV FLUSH FLUSH AFTER USING IV ACCESS 11/19/16 05:00 UNV Sodium Chloride (NS Flush) 2 ml BID IV FLUSH 11/19/16 09:00 UNV Pantoprazole Sodium (Protonix Inj) 40 mg DAILY IV PUSH 11/19/16 09:00 UNV Albuterol/ Ipratropium (Duoneb Neb) 1 ampule Q2HR NEB PRN INH WHEEZING 11/19/16 05:00 UNV Heparin Sodium (Porcine) (Heparin Inj) 5,000 units Q8H SQ 11/19/16 05:00 UNV Sodium Chloride 1,000 ml @ 1,000 mls/hr Q1H ONCE IV 11/19/16 04:52 11/19/16 05:51 Sodium Chloride 1,000 ml @ 1,000 mls/hr Q1H ONCE IV 11/19/16 04:52 11/19/16 05:51 Miscellaneous Information 1 Q361D XX 11/19/16 05:00 UNV Chlorhexidine Gluconate (Chlorhexidine 2% Cloth) 3 pack Taper DAILY@04 TOP 11/20/16 04:00 11/16/17 03:59 UNV Chlorhexidine Gluconate (Chlorhexidine 2% Cloth) 3 pack UNSCH PRN TOP HYGIENIC CARE 11/19/16 05:00 UNV Family History Father with diabetes Mother COPD diabetes mellitus and heart problems Social History never smoked no drinking no drugs Physical Exam Vital Signs Vital Signs Date Time Temp Pulse Resp B/P (MAP) Pulse Ox O2 Delivery O2 Flow Rate FiO2 11/19/16 04:00 90 11/19/16 03:56 98.6 90 16 201/107 (138) 99 11/19/16 03:21 98.7 83 20 165/87 (113) 99 11/19/16 02:30 94 20 208/100 (136) 99 Nasal Cannula 2.00 11/19/16 01:57 98.7 85 20 173/79 (110) 98 Nasal Cannula 2.00 11/19/16 01:00 102 20 204/95 (131) 98 Nasal Cannula 2.00 11/19/16 00:29 126 20 181/104 (129) 98 Nasal Cannula 2.00 11/19/16 00:16 113 20 199/96 (130) 97 Nasal Cannula 2.00 11/19/16 00:00 122 20 181/104 (129) 11/19/16 00:00 20 11/18/16 23:11 130 24 183/90 (121) 94 Nasal Cannula 2.00 11/18/16 22:50 99.7 145 18 143/96 (112) 95 Physical Exam GENERAL: Well-nourished, well-developed patient. SKIN: Warm and dry. HEAD: Normocephalic. EYES: No scleral icterus. No injection or drainage. NECK: Supple, trachea midline. No JVD or lymphadenopathy. CARDIOVASCULAR: Regular rate and rhythm without murmurs, gallops, or rubs. RESPIRATORY: Breath sounds equal bilaterally. No accessory muscle use. GASTROINTESTINAL: Abdomen soft, tender in epigastrium, nondistended. MUSCULOSKELETAL: No cyanosis, or edema. BACK: Nontender without obvious deformity. NEURO EXAM: GCS: M 6 V 5 E #4 Mental Status: The patient is alert and oriented to person, place, and time with normal speech. Cranial Nerves: Visual acuity intact bilaterally. Visual cummings normal in all quadrants. Pupils are round, reactive to light. Extraocular movements are intact without ptosis. Hearing is normal bilaterally. Voice is normal. Tongue protrudes midline and moves symmetrically. Reflexes: Biceps, patellar, and Achilles are 2/4 bilaterally. No clonus. Laboratory Laboratory Tests Test 11/18/16 23:10 11/18/16 23:25 11/18/16 23:59 11/19/16 03:00 White Blood Count 19.2 Red Blood Count 6.06 Hemoglobin 15.6 Hematocrit 47.8 Mean Corpuscular Volume 78.8 Mean Corpuscular Hemoglobin 25.7 Mean Corpuscular Hemoglobin Concent 32.6 Red Cell Distribution Width 14.7 Platelet Count 597 Mean Platelet Volume 9.2 CBC Comment AUTO DIFF Differential Total Cells Counted 100 Neutrophils % (Manual) 85 Band Neutrophils % 1 Lymphocytes % 9 Monocytes % 5 Neutrophils # (Manual) 16.5 Differential Comment FINAL DIFF MANUAL Platelet Estimate HIGH Platelet Morphology Comment NORMAL Urine Color YELLOW Urine Turbidity CLEAR Urine pH 7.5 Urine Specific [place] 1.016 Urine Protein 100 Urine Glucose (UA) 250 Urine Ketones NEG Urine Occult Blood NEG Urine Nitrite NEG Urine Bilirubin NEG Urine Leukocyte Esterase NEG Urine RBC 0-3 Urine WBC 0-2 Urine Squamous Epithelial Cells 0-5 Urine Bacteria NONE Microscopic Urinalysis Comment CULT NOT INDICATED Blood Urea Nitrogen 28 Creatinine 2.90 Random Glucose 240 Total Protein 10.0 Albumin 4.2 Calcium Level 10.7 Alkaline Phosphatase 256 Aspartate Amino Transf (AST/SGOT) 30 Alanine Aminotransferase (ALT/SGPT) 23 Total Bilirubin 0.4 Sodium Level 137 Potassium Level 3.9 Chloride Level 89 Carbon Dioxide Level 27.3 Anion Gap 21 Estimat Glomerular Filtration Rate 17 Lipase 484 Prothrombin Time 10.8 Prothromb Time International Ratio 1.0 Lactic Acid Level 6.9 2.6 Date/Time Source Procedure Growth Status 11/18/16 23:45 Blood Peripheral Aerobic Blood Culture Pending Received 11/18/16 23:45 Blood Peripheral Anaerobic Blood Culture Pending Received Result Diagram: 11/18/[id number]/[id number]/[id number] Caprini VTE Risk Assessment Caprini VTE Risk Assessment: Mod/High Risk (score >= 2) Caprini Risk Assessment Model Point Value = 1 Point Value = 2 Point Value = 3 Point Value = 5 Age 41-60 Minor surgery BMI > 25 kg/m2 Swollen legs Varicose veins or History of unexplained or recurrent spontaneous Oral contraceptives or hormone replacement Sepsis (< 1 month) Serious lung disease, including pneumonia (< 1 month) Abnormal pulmonary function Acute myocardial infarction Congestive heart failure (< 1 month) History of inflammatory bowel disease Medical patient at bed rest Age 61-74 Arthroscopic surgery Major open surgery (> 45 min) Laparoscopic surgery (> 45 min) Malignancy Confined to bed (> 72 hours) Immobilizing plaster cast Central venous access Age >= 75 History of VTE Family history of VTE Factor V Leiden Prothrombin 11509A Lupus anticoagulant Anticardiolipin antibodies Elevated serum homocysteine Heparin-induced thrombocytopenia Other congenital or acquired thrombophilia Stroke (< 1 month) Elective arthroplasty Hip, pelvis, or leg fracture Acute spinal cord injury (< 1 month) Prophylaxis Regimen Total Risk Factor Score Risk Level Prophylaxis Regimen 0-1 Low Early ambulation 2 Moderate Order ONE of the following: *Sequential Compression Device (SCD) *Heparin 5000 units SQ BID 3-4 Higher Order ONE of the following medications: *Heparin 5000 units SQ TID *Enoxaparin/Lovenox 40 mg SQ daily (WT < 150 kg, CrCl > 30 mL/min) *Enoxaparin/Lovenox 30 mg SQ daily (WT < 150 kg, CrCl > 10-29 mL/min) *Enoxaparin/Lovenox 30 mg SQ BID (WT < 150 kg, CrCl > 30 mL/min) AND/OR *Sequential Compression Device (SCD) 5 or more Highest Order ONE of the following medications: *Heparin 5000 units SQ TID (Preferred with Epidurals) *Enoxaparin/Lovenox 40 mg SQ daily (WT < 150 kg, CrCl > 30 mL/min) *Enoxaparin/Lovenox 30 mg SQ daily (WT < 150 kg, CrCl > 10-29 mL/min) *Enoxaparin/Lovenox 30 mg SQ BID (WT < 150 kg, CrCl > 30 mL/min) AND *Sequential Compression Device (SCD) Assessment and Plan Assessment and Plan Nausea vomiting - CT abdomen suggesting gastric outlet obstruction - Keep nothing by mouth - GI consult - Zofran when necessary Lactic acidosis - Severe dehydration - Aggressive IV fluids resuscitation - Improving - Continue to monitor trend Acute kidney injury - Due to above - IV fluid hydration - I's and O's - Monitor trend of her electrolytes and creatinine level Hypertension - Continue Norvasc - Catapres - Hold lisinopril due to acute kidney injury - Labetalol and hydralazine when necessary to keep SBP less than 160 Leukocytosis - Reactive - No symptoms of fever or any other suggesting infection - Monitor trend Anxiety - Home dose of Valium - Paxil DVT GI prophylaxis - Teds SCDs - Subcutaneous heparin - Pantoprazole Critical Care: The total critical care time was 35 minutes. Time to perform other separately billable procedures was not included in the critical care time. Clif Laboy MD Nov 19, 2016 5:05 am
[2016-11-19] MEDS ORDERED: hydrALAZINE HCL 20 MG/ML VIAL IV PUSH PRN (05:30)
[2016-11-19] MEDS ORDERED: LABETALOL HCL 100 MG/20 ML VIAL IV PUSH PRN (05:30)
[2016-11-19] MEDS: MORPHINE SULFATE 4 MG/ML INJ IV PUSH PRN ×4 (05:37→21:04)
[2016-11-19] MEDS: HEPARIN SODIUM - SQ 10,000 UNITS/ML VIAL SQ SCH ×3 (05:38→21:03)
[2016-11-19 06:05] LABS: BASOPHIL # 0.2 TH/MM3 (0-0.2); BASOPHIL % 0.9 % (0.0-2.0); HEMATOCRIT 38.1 % (35.0-46.0); LYMPH % 8.9 % (9.0-44.0); LYMPHOCYTE # 1.9 TH/MM3 (1.0-4.8); MEAN CELL VOLUME 79.9 FL (80.0-100.0); MEAN CORPUSCULAR HEMOGLOBIN 25.8 PG (27.0-34.0); MEAN CORPUSCULAR HGB CONC 32.3 % (32.0-36.0); MONO % 8.4 % (0.0-8.0); NEUT % 81.8 % (16.0-70.0); PLATELET COUNT 395 TH/MM3 (150-450); RED BLOOD COUNT 4.77 MIL/MM3 (4.00-5.30); RED CELL DISTRIBUTION WIDTH 16.2 % (11.6-17.2); WHITE BLOOD COUNT 20.8 TH/MM3 (4.0-11.0)
[2016-11-19 06:12] LABS: HEMO FLAGS AUTO DIFF
[2016-11-19 06:35] LABS: ALKALINE PHOSPHATASE 190 U/L (45-117); TOTAL BILIRUBIN ADULT 0.2 MG/DL (0.2-1.0)
[2016-11-19 06:47] LABS: ALT (GPT) 16 U/L (10-53); ANION GAP 8 MEQ/L (5-15); AST (GOT) 19 U/L (15-37); BICARBONATE 31.9 MEQ/L (21.0-32.0); BLOOD UREA NITROGEN 26 MG/DL (7-18); CHLORIDE 103 MEQ/L (98-107); GLOMERULAR FILTRATION RATE 25 ML/MIN (>89); SODIUM (NA) 143 MEQ/L (136-145)
[2016-11-19 06:57] LABS: PLATELET ESTIMATE SMEAR NORMAL (NORMAL); PLATELET MORPHOLOGY NORMAL (NORMAL); SCAN/DIFF AUTO DIFF CONFIRMED
--- NOTE | 2016-11-19 08:27 | EKG ---
Date Performed: 11/18/2016 Time Performed: 23:51:31 PTAGE: 61 years EKG: SINUS TACHYCARDIA LEFT ATRIAL ENLARGEMENT SEPTAL MYOCARDIAL INFARCTION LATERAL ST ABNORMALI TY, CONSIDER ISCHEMIA ABNORMAL ECG PREVIOUS TRACING : 11/02/2016 01.53 No significant change from previous tracing noted. DOCTOR: Donn Kidd Interpretating Date/Time 11/19/2016 08:25:46
--- NOTE | 2016-11-19 08:56 | PD.CONS ---
HPI History of Present Illness This is a 61 year old female who presented to the ED with c/o abdominal pain, nausea, vomiting, and diarrhea. Patient has had these symptoms intermittently over past 20 years. Does have a history of weight loss associated with these symptoms. Today, patient reports diffuse abdominal pain. Reports her nausea, vomiting, and diarrhea are improving. She states she has not been able to keep any oral intake down at home. Past medical history significant for colon cancer with history of partial colectomy. She is a patient of Dr. Mejía who patient states is currently doing a work up on her for GI bleed and anemia. Plan was to have a colonoscopy and EGD scheduled. Patient was recently admitted for similar symptoms and due to severe dehydration she had a seizure. Patient was placed on Keppra, but she has stopped taking this medication per primary care physician's recommendation. (Katherine Quiñonez) PFSH Past Medical History Hypertension Anxiety Renal artery stenosis, s/p stent placement History of colon cancer, s/[place] [address] De Oliveira Past Surgical History Partial colectomy Appendectomy (Katherine Quiñonez) Coded Allergies: codeine (Unverified Allergy, Severe, Nausea/Vomiting, 11/18/16) diphenhydramine (Unverified Allergy, Severe, Hypertension, 11/18/16) hydrocodone (Unverified Allergy, Severe, Nausea/Vomiting, 11/18/16) Medications Current Medications Medications (Trade) Dose Ordered Sig/Sveta Route PRN Reason Start Time Stop Time Status Last Admin Dose Admin Amlodipine Besylate (Norvasc) 10 mg DAILY PO 11/19/16 09:00 Clonidine (Catapres) 0.2 mg Q12HR PO 11/19/16 09:00 Diazepam (Valium) 10 mg TID PO 11/19/16 09:00 Paroxetine HCl (Paxil) 40 mg DAILY PO 11/19/16 09:00 Sodium Chloride 1,000 ml @ 125 mls/hr Q8H IV 11/19/16 04:52 11/19/16 05:37 Sodium Chloride (NS Flush) 2 ml UNSCH PRN IV FLUSH FLUSH AFTER USING IV ACCESS 11/19/16 05:00 11/19/16 05:38 Sodium Chloride (NS Flush) 2 ml BID IV FLUSH 11/19/16 09:00 Pantoprazole Sodium (Protonix Inj) 40 mg DAILY IV PUSH 11/19/16 09:00 Albuterol/ Ipratropium (Duoneb Neb) 1 ampule Q2HR NEB PRN INH WHEEZING 11/19/16 05:00 Heparin Sodium (Porcine) (Heparin Inj) 5,000 units Q8H SQ 11/19/16 05:00 11/19/16 05:38 Miscellaneous Information 1 Q361D XX 11/19/16 05:00 11/19/16 05:00 Chlorhexidine Gluconate (Chlorhexidine 2% Cloth) 3 pack Taper DAILY@04 TOP 11/20/16 04:00 11/16/17 03:59 Chlorhexidine Gluconate (Chlorhexidine 2% Cloth) 3 pack UNSCH PRN TOP HYGIENIC CARE 11/19/16 05:00 Ondansetron HCl (Zofran Inj) 4 mg Q6HR PRN IV PUSH nausea 11/19/16 05:00 Acetaminophen (Tylenol) 650 mg Q6H PRN PO PAIN 1-10 AND/OR FEVER >101F 11/19/16 05:00 Morphine Sulfate (Morphine Inj) 2 mg Q2H PRN IV PUSH PAIN SCALE 6 TO 10 11/19/16 05:00 11/19/16 05:37 Albuterol/ Ipratropium (Duoneb Neb) 1 ampule Q2HR NEB PRN INH WHEEZING 11/19/16 05:00 Senna/Docusate Sodium (Sera-Colace) 1 tab BID PO 11/19/16 09:00 Magnesium Hydroxide (Milk Of Magnesia Liq) 30 ml Q12H PRN PO MILD - MODERATE CONSTIPATION 11/19/16 05:00 Sennosides (Senokot) 17.2 mg Q12H PRN PO MODERATE - SEVERE CONSTIPATION 11/19/16 05:00 Bisacodyl (Dulcolax Supp) 10 mg DAILY PRN RECTAL SEVERE CONSITIPATION 11/19/16 05:00 Lactulose (Lactulose Liq) 30 ml DAILY PRN PO SEVERE CONSITIPATION 11/19/16 05:00 Labetalol HCl (Trandate Inj) 10 mg Q4H PRN IV PUSH SBP>160, DBP>90 11/19/16 05:30 Hydralazine HCl (Apresoline Inj) 20 mg Q4H PRN IV PUSH SBP>160, DBP>90 11/19/16 05:30 11/19/16 06:06 Family History Father, diabetes Mother, COPD, diabetes, and cardiac disease Social History Tobacco, denies ETOH, denies Illicit Drugs, denies (Katherine Quiñonez) Review of Systems Constitutional: COMPLAINS OF: Weight loss, Change in appetite Endocrine: DENIES: Polydipsia, Polyuria Eyes: DENIES: Blurred vision, Photosensitivity, Double Vision Ears, nose, mouth, throat: DENIES: Hearing loss, Vertigo, Oral lesions, Throat pain, Hoarseness Respiratory: DENIES: Cough, Wheezing, Hemoptysis, Sputum production, Shortness of breath Cardiovascular: DENIES: Chest pain, Palpitations, Syncope, Lower Extremity Edema, Orthopnea, Claudication Gastrointestinal: COMPLAINS OF: Abdominal pain, Diarrhea, Nausea, Vomiting, DENIES: Black stools, Bloody stools, Constipation, Difficulty Swallowing, Anorexia, Odynophagia, Swelling of Abdomen, Heartburn, Hematemesis Genitourinary: DENIES: Urinary frequency, Urinary incontinence, Urgency, Hematuria, Dysuria, Nocturia Musculoskeletal: DENIES: Joint pain, Muscle aches, Stiffness, Joint Swelling, Back pain, Neck pain Integumentary: DENIES: Abnormal pigmentation, Nail changes, Pruritus, Rash, Jaundice Hematologic/lymphatic: DENIES: Bruising, Lymphadenopathy Immunologic/allergic: DENIES: Eczema, Urticaria Neurologic: DENIES: Abnormal gait, Headache, Localized weakness, Paresthesias Psychiatric: DENIES: Anxiety, Confusion, Mood changes, Depression, Agitation, Suicidal Ideation (Katherine Quiñonez) GI Exam Vitals I&O Vital Signs Date Time Temp Pulse Resp B/P (MAP) Pulse Ox O2 Delivery O2 Flow Rate FiO2 11/19/16 08:23 99 Nasal Cannula 2.00 11/19/16 06:00 78 11/19/16 04:00 90 11/19/16 03:56 98.6 90 16 201/107 (138) 99 11/19/16 03:21 98.7 83 20 165/87 (113) 99 11/19/16 02:30 94 20 208/100 (136) 99 Nasal Cannula 2.00 11/19/16 01:57 98.7 85 20 173/79 (110) 98 Nasal Cannula 2.00 11/19/16 01:00 102 20 204/95 (131) 98 Nasal Cannula 2.00 11/19/16 00:29 126 20 181/104 (129) 98 Nasal Cannula 2.00 11/19/16 00:16 113 20 199/96 (130) 97 Nasal Cannula 2.00 11/19/16 00:00 122 20 181/104 (129) 11/19/16 00:00 20 11/18/16 23:11 130 24 183/90 (121) 94 Nasal Cannula 2.00 11/18/16 22:50 99.7 145 18 143/96 (112) 95 I/O 11/18/16 11/18/16 11/18/16 11/19/16 11/19/16 11/19/16 07:00 15:00 23:00 07:00 15:00 23:00 Intake Total 2300 ml 2000 ml Output Total 800 ml Balance 1500 ml 2000 ml Intake IV Total 2300 ml 2000 ml Output Urine Total 400 ml Emesis 400 ml # Voids 1 Laboratory Test 11/18/16 23:10 11/18/16 23:25 11/18/16 23:59 11/19/16 03:00 White Blood Count 19.2 TH/MM3 Red Blood Count 6.06 MIL/MM3 Hemoglobin 15.6 GM/DL Hematocrit 47.8 % Mean Corpuscular Volume 78.8 FL Mean Corpuscular Hemoglobin 25.7 PG Mean Corpuscular Hemoglobin Concent 32.6 % Red Cell Distribution Width 14.7 % Platelet Count 597 TH/MM3 Mean Platelet Volume 9.2 FL CBC Comment AUTO DIFF Differential Total Cells Counted 100 Neutrophils % (Manual) 85 % Band Neutrophils % 1 % Lymphocytes % 9 % Monocytes % 5 % Neutrophils # (Manual) 16.5 TH/MM3 Differential Comment FINAL DIFF MANUAL Platelet Estimate HIGH Platelet Morphology Comment NORMAL Urine Color YELLOW Urine Turbidity CLEAR Urine pH 7.5 Urine Specific [place] 1.016 Urine Protein 100 mg/dL Urine Glucose (UA) 250 mg/dL Urine Ketones NEG mg/dL Urine Occult Blood NEG Urine Nitrite NEG Urine Bilirubin NEG Urine Leukocyte Esterase NEG Urine RBC 0-3 /hpf Urine WBC 0-2 /hpf Urine Squamous Epithelial Cells 0-5 /hpf Urine Bacteria NONE /hpf Microscopic Urinalysis Comment CULT NOT INDICATED Blood Urea Nitrogen 28 MG/DL Creatinine 2.90 MG/DL Random Glucose 240 MG/DL Total Protein 10.0 GM/DL Albumin 4.2 GM/DL Calcium Level 10.7 MG/DL Alkaline Phosphatase 256 U/L Aspartate Amino Transf (AST/SGOT) 30 U/L Alanine Aminotransferase (ALT/SGPT) 23 U/L Total Bilirubin 0.4 MG/DL Sodium Level 137 MEQ/L Potassium Level 3.9 MEQ/L Chloride Level 89 MEQ/L Carbon Dioxide Level 27.3 MEQ/L Anion Gap 21 MEQ/L Estimat Glomerular Filtration Rate 17 ML/MIN Lipase 484 U/L Prothrombin Time 10.8 SEC Prothromb Time International Ratio 1.0 RATIO Lactic Acid Level 6.9 mmol/L 2.6 mmol/L Test 11/19/16 04:06 11/19/16 05:18 Nasal Screen MRSA (PCR) MRSA NOT DETECTED White Blood Count 20.8 TH/MM3 Red Blood Count 4.77 MIL/MM3 Hemoglobin 12.3 GM/DL Hematocrit 38.1 % Mean Corpuscular Volume 79.9 FL Mean Corpuscular Hemoglobin 25.8 PG Mean Corpuscular Hemoglobin Concent 32.3 % Red Cell Distribution Width 16.2 % Platelet Count 395 TH/MM3 Mean Platelet Volume 8.6 FL Neutrophils (%) (Auto) 81.8 % Lymphocytes (%) (Auto) 8.9 % Monocytes (%) (Auto) 8.4 % Eosinophils (%) (Auto) 0.0 % Basophils (%) (Auto) 0.9 % Neutrophils # (Auto) 17.0 TH/MM3 Lymphocytes # (Auto) 1.9 TH/MM3 Monocytes # (Auto) 1.8 TH/MM3 Eosinophils # (Auto) 0.0 TH/MM3 Basophils # (Auto) 0.2 TH/MM3 CBC Comment AUTO DIFF Differential Comment AUTO DIFF CONFIRMED Platelet Estimate NORMAL Platelet Morphology Comment NORMAL Red Cell Morphology Comment NORMAL Blood Urea Nitrogen 26 MG/DL Creatinine 2.06 MG/DL Random Glucose 111 MG/DL Total Protein 7.7 GM/DL Albumin 3.4 GM/DL Calcium Level 9.0 MG/DL Alkaline Phosphatase 190 U/L Aspartate Amino Transf (AST/SGOT) 19 U/L Alanine Aminotransferase (ALT/SGPT) 16 U/L Total Bilirubin 0.2 MG/DL Sodium Level 143 MEQ/L Potassium Level 4.0 MEQ/L Chloride Level 103 MEQ/L Carbon Dioxide Level 31.9 MEQ/L Anion Gap 8 MEQ/L Estimat Glomerular Filtration Rate 25 ML/MIN Lactic Acid Level 1.8 mmol/L Date/Time Source Procedure Growth Status 11/18/16 23:45 Blood Peripheral Aerobic Blood Culture Pending Received 11/18/16 23:45 Blood Peripheral Anaerobic Blood Culture Pending Received Physical Examination HEENT: Normocephalic; atraumatic; no jaundice. NECK: Neck is supple CHEST: CTA CARDIAC: RRR with no murmur gallop or rubs. ABDOMEN: Soft, nondistended, tender to palpation at epigastric region; bowel sounds are present. EXTREMITIES: No clubbing, cyanosis, or edema. SKIN: Normal; no rash; no jaundice. ELECTRONIC TEST TECHNICIAN: No focal deficits; alert and oriented x 3 (Katherine Quiñonez) Assessment and Plan Plan ASSESSMENT: - Abdominal pain with nausea, vomiting, and diarrhea. Abdomen/Pelvis CT (11/19/16 )--1. Distended stomach. Differential diagnosis includes a mechanical or functional gastric outlet obstruction. 2. No evidence for small bowel obstruction. Postop partial right colectomy and appendectomy. Patient reports nausea, vomiting, and diarrhea is improving. Reports diffuse abdominal tenderness, epigastric region is tender on palpation. WBC elevated, 20.8. HH normal. PLAN: - EGD Monday - Obtain consents - NPO - Continue Zofran - Monitor labs - Supportive care - Further recommendations to follow based on results of above Patient seen and examined by Dr. Rincon and myself and this note is written on his behalf. (Katherine Quiñonez) Plan Patient was seen and examined, agree with the above notes, patient will need upper endoscopy, will give patient clear liquid (Sarah Rincon MD) Katherine Quiñonez Nov 19, 2016 08:56 Sarah Rincon MD Nov 20, 2016 10:42
[2016-11-19] MEDS: DOCUSATE SODIUM 50 MG/SENNA 8.6 MG TAB PO SCH ×2 (09:06→21:03)
[2016-11-19] MEDS: cloNIDine HCL 0.2 MG TAB PO SCH ×2 (09:06→21:03)
[2016-11-19] MEDS: DIAZEPAM 10 MG TAB PO SCH ×3 (09:06→17:42)
[2016-11-19] MEDS: PARoxetine HCL 20 MG TAB PO SCH (09:06)
[2016-11-19] MEDS: PANTOPRAZOLE SODIUM 40 MG VIAL IV PUSH SCH (09:07)
[2016-11-19] MEDS: SODIUM CHLORIDE 0.9% FLUSH 10 ML FLUSH IV FLUSH SCH ×2 (09:07→21:02)
[2016-11-19] MEDS ORDERED: DEXTROSE 50% IN WATER 50 ML VIAL(D50) IV PUSH PRN (09:45)
[2016-11-19] MEDS ORDERED: GLUCAGON 1 MG/ML VIAL OTHER PRN (09:45)
[2016-11-19] MEDS: INSULIN NovoLIN REGULAR SUPPLEMENTAL SCALE SQ SCH ×3 (10:00→21:10)
[2016-11-19] MEDS: PIPERACIL-TAZO 3.375 GM PREMIX 50 ML IV SCH ×3 (10:33→21:01)
[2016-11-19] MEDS: DEXT 5%-NACL 0.9% 1000 ML INJ 1,000 ML IV SCH (13:41)
[2016-11-20] VITALS (12 sets, daily range): BP systolic 97–170; BP diastolic 53–82; PULSE 51–78; RESP 14–29; TEMP 97.7–98.8; O2SAT 96–99
[2016-11-20] MEDS: DEXT 5%-NACL 0.9% 1000 ML INJ 1,000 ML IV SCH ×2 (01:39→12:28)
[2016-11-20] MEDS: INSULIN NovoLIN REGULAR SUPPLEMENTAL SCALE SQ SCH ×4 (04:00→20:55)
[2016-11-20] MEDS ORDERED: CHLORHEXIDINE GLUCONATE 2 % 1 PACK (2 CLOTHS) TOP SCH (04:00)
[2016-11-20] MEDS: CHLORHEXIDINE GLUCONATE 2 % 1 PACK (2 CLOTHS) TOP SCH (04:00)
[2016-11-20] MEDS: PIPERACIL-TAZO 3.375 GM PREMIX 50 ML IV SCH ×4 (04:10→20:54)
[2016-11-20] MEDS: HEPARIN SODIUM - SQ 10,000 UNITS/ML VIAL SQ SCH ×3 (04:11→20:55)
[2016-11-20 06:12] LABS: AUTOMATED NEUTROPHIL # 8.2 TH/MM3 (1.8-7.7); BASOPHIL # 0.1 TH/MM3 (0-0.2); BASOPHIL % 0.7 % (0.0-2.0); EOSINOPHIL # 0.1 TH/MM3 (0-0.4); EOSINOPHIL % 0.7 % (0.0-4.0); HEMO FLAGS DIFF FINAL; LYMPH % 21.8 % (9.0-44.0); LYMPHOCYTE # 2.4 TH/MM3 (1.0-4.8); MEAN CELL VOLUME 81.2 FL (80.0-100.0); MEAN CORPUSCULAR HEMOGLOBIN 25.2 PG (27.0-34.0); MONO % 3.7 % (0.0-8.0); NEUT % 73.1 % (16.0-70.0); PLATELET COUNT 257 TH/MM3 (150-450); RED CELL DISTRIBUTION WIDTH 16.3 % (11.6-17.2); WHITE BLOOD COUNT 11.2 TH/MM3 (4.0-11.0)
[2016-11-20] MEDS: MORPHINE SULFATE 4 MG/ML INJ IV PUSH PRN ×4 (06:12→20:57)
[2016-11-20 06:24] LABS: ANION GAP 8 MEQ/L (5-15); AST (GOT) 13 U/L (15-37); BICARBONATE 22.4 MEQ/L (21.0-32.0); BLOOD UREA NITROGEN 14 MG/DL (7-18); CHLORIDE 110 MEQ/L (98-107); GLOMERULAR FILTRATION RATE 41 ML/MIN (>89); MAGNESIUM 1.7 MG/DL (1.5-2.5); POTASSIUM 3.6 MEQ/L (3.5-5.1); SODIUM (NA) 140 MEQ/L (136-145)
[2016-11-20 06:26] LABS: ALT (GPT) 11 U/L (10-53)
[2016-11-20 06:28] LABS: ALKALINE PHOSPHATASE 125 U/L (45-117); TOTAL BILIRUBIN ADULT 0.2 MG/DL (0.2-1.0)
[2016-11-20] MEDS: PANTOPRAZOLE SODIUM 40 MG VIAL IV PUSH SCH (08:00)
[2016-11-20] MEDS: SODIUM CHLORIDE 0.9% FLUSH 10 ML FLUSH IV FLUSH SCH ×2 (08:00→20:56)
[2016-11-20] MEDS: DIAZEPAM 10 MG TAB PO SCH ×3 (08:01→17:13)
[2016-11-20] MEDS: PARoxetine HCL 20 MG TAB PO SCH (08:01)
[2016-11-20] MEDS: cloNIDine HCL 0.2 MG TAB PO SCH ×2 (08:01→20:54)
[2016-11-20] MEDS: DOCUSATE SODIUM 50 MG/SENNA 8.6 MG TAB PO SCH ×2 (08:01→20:54)
--- NOTE | 2016-11-20 09:58 | HHI.PR ---
Subjective Remarks Patient reports feeling better today. No nausea or vomiting but still having some mild abdominal pain. Objective Vitals Vital Signs Date Time Temp Pulse Resp B/P (MAP) Pulse Ox O2 Delivery O2 Flow Rate FiO2 11/20/16 09:00 52 20 97/53 (68) 98 11/20/16 08:42 96 11/20/16 08:00 98.4 67 18 154/81 (105) 96 11/20/16 08:00 67 11/20/16 06:00 62 11/20/16 04:00 56 11/20/16 04:00 98.8 56 21 110/62 (78) 97 11/20/16 02:00 55 11/20/16 00:00 51 11/20/16 00:00 98.2 52 29 98/56 (70) 99 11/19/16 22:00 64 11/19/16 20:01 98 Nasal Cannula 2.00 11/19/16 20:00 68 11/19/16 20:00 98.4 68 26 119/77 (91) 98 11/19/16 18:00 70 11/19/16 16:00 98.3 71 24 114/54 (74) 97 11/19/16 16:00 71 11/19/16 14:00 72 11/19/16 12:00 98.8 80 28 132/64 (86) 97 11/19/16 12:00 80 11/19/16 10:00 94 I/O 11/19/16 11/19/16 11/19/16 11/20/16 11/20/16 11/20/16 07:00 15:00 23:00 07:00 15:00 23:00 Intake Total 3300 ml 2488 ml 340 ml 1050 ml Output Total 800 ml 2600 ml 600 ml Balance 2500 ml 2488 ml -2260 ml 450 ml Intake Oral 240 ml 0 ml IV Total 3300 ml 2488 ml 100 ml 1050 ml Output Urine Total 400 ml 2600 ml 600 ml Emesis 400 ml # Voids 1 # Bowel Movements 0 Result Diagram: 11/20/1643411/20/16434 Objective Remarks GENERAL: Patient appearing older than stated age, in no apparent distress. CARDIOVASCULAR: Normal rate and regular rhythm without murmurs, gallops, or rubs. RESPIRATORY: Good respiratory efforts. Breath sounds equal and clear to auscultation bilaterally. GASTROINTESTINAL: Abdomen soft, mildly tender to palpation diffusely. Normal active bowel sounds MUSCULOSKELETAL: Extremities without cyanosis, or edema. NEURO: Alert & Oriented x4 to person, place, time, situation. Moves all ext x4 PSYCH: Appropriate mood and affect. A/P Assessment and Plan 61-year-old female admitted with persistent nausea, vomiting, and abdominal pain. CAT scan suggests gastric outlet obstruction. Nausea/vomiting/abdominal pain - CT abdomen suggesting gastric outlet obstruction - GI following and planning EGD tomorrow. Clear liquid diet per GI - Zofran when necessary Acute kidney injury - Due to above/dehydration - IV fluid hydration - I's and O's - Monitor trend of her electrolytes and creatinine level - Improving Hypertension - Continue Norvasc - Catapres - Hold lisinopril due to acute kidney injury. Plan to restart tomorrow if renal functions continued to improve. - Labetalol and hydralazine when necessary to keep SBP less than 160 Leukocytosis - Reactive - No symptoms of fever or any other suggesting infection - Monitor trend - Improving Anxiety - Home dose of Valium - Paxil DVT GI prophylaxis - Teds SCDs - Subcutaneous heparin - Pantoprazole Discharge Planning Patient is stable for transfer to floor. Segundo Guardado MD Nov 20, 2016 09:58
[2016-11-20] MEDS: SODIUM CHLORIDE 0.9% FLUSH 10 ML FLUSH IV FLUSH PRN (10:39)
--- NOTE | 2016-11-20 11:01 | HHI.PR ---
Subjective Subjective Notes No further emesis; no nausea Objective Vitals/I&O Vital Signs Date Time Temp Pulse Resp B/P (MAP) Pulse Ox O2 Delivery O2 Flow Rate FiO2 11/20/16 10:47 16 11/20/16 10:00 63 11/20/16 09:00 97/53 (68) 98 11/20/16 08:00 98.4 11/19/16 20:01 Nasal Cannula 2.00 Labs Laboratory Tests Test 11/20/16 04:35 White Blood Count 11.2 Red Blood Count 3.70 Hemoglobin 9.3 Hematocrit 30.0 Mean Corpuscular Volume 81.2 Mean Corpuscular Hemoglobin 25.2 Mean Corpuscular Hemoglobin Concent 31.0 Red Cell Distribution Width 16.3 Platelet Count 257 Mean Platelet Volume 8.6 Neutrophils (%) (Auto) 73.1 Lymphocytes (%) (Auto) 21.8 Monocytes (%) (Auto) 3.7 Eosinophils (%) (Auto) 0.7 Basophils (%) (Auto) 0.7 Neutrophils # (Auto) 8.2 Lymphocytes # (Auto) 2.4 Monocytes # (Auto) 0.4 Eosinophils # (Auto) 0.1 Basophils # (Auto) 0.1 CBC Comment DIFF FINAL Differential Comment Blood Urea Nitrogen 14 Creatinine 1.31 Random Glucose 100 Total Protein 5.5 Albumin 2.4 Calcium Level 8.3 Phosphorus Level 1.9 Magnesium Level 1.7 Alkaline Phosphatase 125 Aspartate Amino Transf (AST/SGOT) 13 Alanine Aminotransferase (ALT/SGPT) 11 Total Bilirubin 0.2 Sodium Level 140 Potassium Level 3.6 Chloride Level 110 Carbon Dioxide Level 22.4 Anion Gap 8 Estimat Glomerular Filtration Rate 41 Date/Time Source Procedure Growth Status 11/18/16 23:45 Blood Peripheral Aerobic Blood Culture - Preliminary NO GROWTH IN 1 DAY Resulted 11/18/16 23:45 Blood Peripheral Anaerobic Blood Culture - Final QNS - SEE AEROBE REPORT Resulted Lungs: Clear Abdomen: Other (Moderately distended, nontender) A/P Assessment and Plan Gastric outlet obstruction, likely secondary to recurrent/chronic ulcer disease ; possibility of neoplastic disease unlikely but with history of colon cancer 2009, this must be considered as well. Dr. Aviles to proceed based on findings. I attest that I had a [id number] encounter with the patient on the same day, and personally performed and documented my assessment and findings in the medical record. The following services were provided during this hospital visit: Chart data review, vital sign assessments/reviewing monitor data Review of consultations notes if present. Medication orders/review and/or management Ordering and/or reviewing lab tests Ordering and/or interpreting/reviewing x-rays and/or diagnostic studies Care of the patient and discussion of the patient with the care team Documentation time To help prompt me to consider important information that might be impacting today's encounter and assessment, information from prior notes written by myself or my colleagues may have been "brought forward/copy and pasted" into today's note. Roberto Zhang MD Nov 20, 2016 11:01
--- NOTE | 2016-11-20 17:38 | HHI.GIFU ---
Subjective Remarks Resting in bed. No n/v. Tolerating clear liquids. Has not had a bowel movement, but states that she could have one if her lockett catheter was removed. States this is uncomfortable and she does want to try to move bowels as long as she has it. (Yissel Buitrago) Objective Vitals I&O Vital Signs Date Time Temp Pulse Resp B/P (MAP) Pulse Ox O2 Delivery O2 Flow Rate FiO2 11/20/16 16:15 97.7 63 18 135/63 (87) 97 11/20/16 14:00 60 11/20/16 12:00 98.7 63 14 120/71 (87) 96 11/20/16 12:00 63 11/20/16 10:47 16 11/20/16 10:00 63 11/20/16 09:00 52 20 97/53 (68) 98 11/20/16 08:42 96 11/20/16 08:00 98.4 67 18 154/81 (105) 96 11/20/16 08:00 67 11/20/16 06:00 62 11/20/16 04:00 56 11/20/16 04:00 98.8 56 21 110/62 (78) 97 11/20/16 02:00 55 11/20/16 00:00 51 11/20/16 00:00 98.2 52 29 98/56 (70) 99 11/19/16 22:00 64 11/19/16 20:01 98 Nasal Cannula 2.00 11/19/16 20:00 68 11/19/16 20:00 98.4 68 26 119/77 (91) 98 11/19/16 18:00 70 I/O 11/19/16 11/19/16 11/19/16 11/20/16 11/20/16 11/20/16 07:00 15:00 23:00 07:00 15:00 23:00 Intake Total 3300 ml 2488 ml 340 ml 1050 ml 393 ml Output Total 800 ml 2600 ml 600 ml 700 ml Balance 2500 ml 2488 ml -2260 ml 450 ml -307 ml Intake Oral 240 ml 0 ml IV Total 3300 ml 2488 ml 100 ml 1050 ml 393 ml Output Urine Total 400 ml 2600 ml 600 ml 700 ml Emesis 400 ml # Voids 1 # Bowel Movements 0 Laboratory Laboratory Tests Test 11/20/16 04:35 White Blood Count 11.2 Red Blood Count 3.70 Hemoglobin 9.3 Hematocrit 30.0 Mean Corpuscular Volume 81.2 Mean Corpuscular Hemoglobin 25.2 Mean Corpuscular Hemoglobin Concent 31.0 Red Cell Distribution Width 16.3 Platelet Count 257 Mean Platelet Volume 8.6 Neutrophils (%) (Auto) 73.1 Lymphocytes (%) (Auto) 21.8 Monocytes (%) (Auto) 3.7 Eosinophils (%) (Auto) 0.7 Basophils (%) (Auto) 0.7 Neutrophils # (Auto) 8.2 Lymphocytes # (Auto) 2.4 Monocytes # (Auto) 0.4 Eosinophils # (Auto) 0.1 Basophils # (Auto) 0.1 CBC Comment DIFF FINAL Differential Comment Blood Urea Nitrogen 14 Creatinine 1.31 Random Glucose 100 Total Protein 5.5 Albumin 2.4 Calcium Level 8.3 Phosphorus Level 1.9 Magnesium Level 1.7 Alkaline Phosphatase 125 Aspartate Amino Transf (AST/SGOT) 13 Alanine Aminotransferase (ALT/SGPT) 11 Total Bilirubin 0.2 Sodium Level 140 Potassium Level 3.6 Chloride Level 110 Carbon Dioxide Level 22.4 Anion Gap 8 Estimat Glomerular Filtration Rate 41 Date/Time Source Procedure Growth Status 11/18/16 23:45 Blood Peripheral Aerobic Blood Culture - Preliminary NO GROWTH IN 2 DAYS Resulted 11/18/16 23:45 Blood Peripheral Anaerobic Blood Culture - Final QNS - SEE AEROBE REPORT Resulted Imaging Last Impressions Abdomen/Pelvis CT 11/18/16 2347 Signed Impressions: Service Date/Time: Saturday, November 19, 2016 00:10 - CONCLUSION: 1. Distended stomach. Differential diagnosis includes a mechanical or functional gastric outlet obstruction. 2. No evidence for small bowel obstruction. Postop partial right colectomy and appendectomy. Landry Dodson MD Chest X-Ray 11/18/16 4269 Signed Impressions: Service Date/Time: Friday, November 18, 2016 23:26 - CONCLUSION: 1. No active disease. Mild scoliosis. Landry Dodson MD Physical Exam HEENT: Normocephalic; atraumatic; no jaundice. CHEST: CTA, Resp. even/unlabored CARDIAC: RRR ABDOMEN: Soft, nondistended, nontender; no hepatosplenomegaly; bowel sounds are present in all four quadrants. EXTREMITIES: No clubbing, cyanosis, or edema. SKIN: Normal; no rash; no jaundice. WATER PUMPER: No focal deficits; alert and oriented times three. (Yissel Buitrago) Assessment and Plan Plan ASSESSMENT: - Abdominal pain with nausea, vomiting, and diarrhea. Abdomen/Pelvis CT (11/19/16 )--1. Distended stomach. Differential diagnosis includes a mechanical or functional gastric outlet obstruction. 2. No evidence for small bowel obstruction. Postop partial right colectomy and appendectomy. Patient reports nausea, vomiting, and diarrhea is improving. Reports diffuse abdominal tenderness, epigastric region is tender on palpation. Tolerating clears. WBC 11.2. No n /v/abd. pain at this time. Will plan on EGD in am. - ? Gastric outlet obstruction. EGD in am. GS following. - Anemia. 9.30.0. No active blood loss. - Leukocytosis. WBC 11.2 - VICK, Creat 1.31. IVF. - HTN, Anxiety per attending - Hx colon cancer 2009. PLAN: - Plan for egd in am - Obtain consents - NPO - D/C lockett catheter (per pt request) - Continue Zofran - Monitor labs - GS following. - Supportive care - Further recommendations to follow based on results of above - Patient seen and examined by Dr. Rincon and myself and this note is written on his behalf. (Yissel Buitrago) Plan Was seen and examined, agree with above Notes, questionable gastric outlet obstruction, plan EGD tomorrow morning (Sarah Rincon MD) Yissel Buitrago Nov 20, 2016 17:38 Sarah Rincon MD Nov 20, 2016 18:21
[2016-11-20] MEDS ORDERED: POVIDONE IODINE 5% (ANTISEPSIS KIT) 4 APPLICATIONS EACH NARE PRN (19:15)
[2016-11-20] MEDS ORDERED: LACTATED RINGER'S 1000 ML IV PRN (19:15)
[2016-11-20] MEDS ORDERED: INSULIN HUMAN REGULAR 1,000 UNITS/10 ML VIAL SQ PRN (19:15)
[2016-11-20] MEDS ORDERED: SODIUM CHLORID 0.9% 500 ML IV PRN (19:15)
[2016-11-20] MEDS ORDERED: CHLORHEXIDINE GLUCONATE 2 % 1 PACK (2 CLOTHS) TOPICAL PRN (19:15)
[2016-11-20] MEDS ORDERED: METOPROLOL TARTRATE 25 MG TAB PO PRN (19:15)
--- NOTE | 2016-11-20 22:25 | MB ---
cc: CANDELARIA LÓPEZ MD DATE OF CONSULTATION 11/19/2016 REASON FOR CONSULTATION Gastric outlet obstruction. HISTORY OF PRESENT ILLNESS The patient is a 61-year-old female who has a history of gastric ulcers and gastric outlet obstruction for the past 20 years. The patient presented to the emergency department with acute onset of nausea, vomiting and diarrhea. The patient states within the last few days she has had significant nausea, vomiting and unable to keep anything down. She came to the emergency department. Further workup including CT scan showing a severely dilated stomach with concern for outlet obstruction. Surgery was consulted for further evaluation. On my exam the patient is resting comfortably. She states she is not currently having nausea and vomiting. She states she has had pretty significant longstanding history of gastric outlet and multiple episodes of nausea and vomiting for which she has undergone in the past NG tube placement and had multiple endoscopies as well. The patient is planning for EGD and colonoscopy today or in the near future. The patient has noted to be severe electrolyte imbalance in the past resulting in seizures as well. The patient also has further surgical history of colon cancer treated with partial colectomy in 2009. PAST MEDICAL HISTORY 1. Hypertension. 2. Gastric ulcers. 3. Anxiety. 4. Renal artery stenosis. 5. Colon cancer status post partial colectomy in 2009. 6. Seizure disorder. PAST SURGICAL HISTORY 1. Partial colectomy. 2. Appendectomy. 3. Multiple endoscopies. FAMILY HISTORY Father with diabetes, COPD. Mother with coronary artery disease. SOCIAL HISTORY Denies smoking, EtOH or IVDA. ALLERGIES CODEINE, BENADRYL, HYDROCODONE. MEDICATIONS See EMR. REVIEW OF SYSTEMS GENERAL: Denies fevers or chills. HEENT: Denies eye pain, ear pain. RESPIRATORY: Denies cough or wheeze. CARDIOVASCULAR: Denies palpitations, chest pain. GASTROINTESTINAL: Complains of nausea, vomiting and diarrhea. GENITOURINARY: Denies dysuria, hematuria. MUSCULOSKELETAL: Denies arthralgias, myalgias. INTEGUMENT: Denies any new lesions. HEMATOLOGIC: Denies easy bruising or bleeding. PHYSICAL EXAMINATION GENERAL: The patient in no acute distress. VITAL SIGNS: Temperature 98.3, pulse 71, respirations 24, blood pressure 114/54, saturation 97%. HEENT: PERRLA, pupils equal, round and reactive. NECK: Supple. Trachea midline. LUNGS: Clear to auscultation, bilateral expansion. HEART: S1-S2 regular rhythm. ABDOMEN: oft. Mild tenderness to palpation. No rebound. No guarding. Healed surgical incisions. : Within normal limits. EXTREMITIES: Warm, no edema. NEUROLOGIC: 5/5 motor all extremities. NEUROLOGIC: Intact. PSYCHIATRIC: Appropriate mood and insight. LABORATORY AND DIAGNOSTIC DATA WBC 20.8, hemoglobin 12.3, hematocrit 38.1, platelets 395. Sodium 143, potassium 4, chloride 103, BUN 26, creatinine 2, lactate 2.6, alk phos 190. INR 1.0. IMAGING CT reviewed by myself showing abdomen and pelvis distended stomach. Chest x-ray no evidence of acute disease. ASSESSMENT The patient is a 61-year-old female gastric outlet obstruction presented with nausea, vomiting and creatinine of currently 2 consistent with acute renal injury, dehydration, leukocytosis. PLAN After full clinical, radiologic, laboratory workup the patient with above-named issues including a concern for gastric outlet obstruction. Discussed with the patient in detail regarding possible requirement for an NG tube placement if nausea and vomiting continues. Currently recommend IV fluids, correcting electrolyte abnormalities, Protonix, close monitoring. The patient for EGD today. We will follow up on results if it occurs today or in the next few days. Discussed with the patient may need surgical intervention if no improvement. Considerations would be for possible interventional radiology for a gastrojejunal tube. Again if symptoms become worse and the patient is not tolerating diet, possible distal feeding tube. Could consider surgery with bypass gastrojejunostomy, however, again we will continue to follow initially nonoperatively pending results of EGD and further workup. MD HAWA Lujan/AURA /9:40 PM /10:05 PM EJ
[2016-11-21] VITALS: BP 119/55; PULSE 51; RESP 18; TEMP 97.1; O2SAT 97
[2016-11-21] MEDS: DEXT 5%-NACL 0.9% 1000 ML INJ 1,000 ML IV SCH ×2 (01:15→22:05)
[2016-11-21] MEDS: CHLORHEXIDINE GLUCONATE 2 % 1 PACK (2 CLOTHS) TOP SCH (04:00)
[2016-11-21] MEDS: INSULIN NovoLIN REGULAR SUPPLEMENTAL SCALE SQ SCH ×4 (04:00→22:08)
[2016-11-21] MEDS: PIPERACIL-TAZO 3.375 GM PREMIX 50 ML IV SCH ×4 (04:53→22:07)
[2016-11-21] MEDS: HEPARIN SODIUM - SQ 10,000 UNITS/ML VIAL SQ SCH ×3 (04:54→22:06)
[2016-11-21 05:00] VITALS: BP 119/65; PULSE 50; RESP 18; TEMP 97.7; O2SAT 96
[2016-11-21 08:00] VITALS: BP 163/77; PULSE 68; RESP 18; TEMP 98.5; O2SAT 96
[2016-11-21] MEDS: DIAZEPAM 10 MG TAB PO SCH ×3 (08:19→17:43)
[2016-11-21] MEDS: cloNIDine HCL 0.2 MG TAB PO SCH ×2 (08:19→22:07)
[2016-11-21] MEDS: DOCUSATE SODIUM 50 MG/SENNA 8.6 MG TAB PO SCH ×2 (08:20→22:07)
[2016-11-21] MEDS: SODIUM CHLORIDE 0.9% FLUSH 10 ML FLUSH IV FLUSH SCH ×2 (08:20→22:06)
[2016-11-21] MEDS: PARoxetine HCL 20 MG TAB PO SCH (08:20)
[2016-11-21] MEDS: MORPHINE SULFATE 4 MG/ML INJ IV PUSH PRN ×3 (08:25→17:49)
[2016-11-21] MEDS: PANTOPRAZOLE SODIUM 40 MG VIAL IV PUSH SCH (08:26)
[2016-11-21 09:19] LABS: HEMATOCRIT 31.5 % (35.0-46.0); MEAN CELL VOLUME 79.5 FL (80.0-100.0); MEAN CORPUSCULAR HEMOGLOBIN 25.8 PG (27.0-34.0); MEAN CORPUSCULAR HGB CONC 32.5 % (32.0-36.0); PLATELET COUNT 236 TH/MM3 (150-450); RED BLOOD COUNT 3.96 MIL/MM3 (4.00-5.30); RED CELL DISTRIBUTION WIDTH 15.9 % (11.6-17.2); REVIEW FLAG FINAL; WHITE BLOOD COUNT 5.5 TH/MM3 (4.0-11.0)
[2016-11-21 09:36] LABS: BICARBONATE 22.8 MEQ/L (21.0-32.0); POTASSIUM 3.4 MEQ/L (3.5-5.1)
[2016-11-21 12:00] VITALS: BP 122/61; PULSE 57; RESP 18; TEMP 97.7; O2SAT 97
[2016-11-21] MEDS ORDERED: PROPOFOL 200 MG/20 ML AMP IV ONE (12:00)
[2016-11-21] MEDS ORDERED: LIDOCAINE HCL 1% PF 5 ML AMPULE OTHER ONE (12:00)
--- NOTE | 2016-11-21 13:01 | GIPROC ---
[facility] [address] [facility]. [facility], [address] EGD PROCEDURE REPORT EXAM DATE: 11/21/2016 PATIENT NAME: Diann Lopez MR #: [id number] BIRTHDATE: 1955 ATTENDING: Lula Mejía MD ORDER #: [id number] FAMILY LIFE COUNSELOR: Summer Mcdaniel and Ramy Bennett STATUS: inpatient INDICATIONS: The patient is a 61 yr old female here for an EGD due to abdominal pain, nausea, vomiting, abnormal ct PROCEDURE PERFORMED: EGD w/ biopsy MEDICATIONS: None and Per Anesthesia. TOPICAL ANESTHETIC: none CONSENT: The patient understands the risks and benefits of the procedure and understands that these risks include, but are not limited to: sedation, allergic reaction, infection, perforation and/or bleeding. Alternative means of evaluation and treatment include, among others: physical exam, x-rays, and/or surgical intervention. The patient elects to proceed with this endoscopic procedure. medical equipment was checked for proper function. Hand hygiene and appropriate measures for infection prevention was taken. After the risks, benefits and alternatives of the procedure were thoroughly explained, Informed consent was verified, confirmed and timeout was successfully executed by the treatment team. The patient was anesthetized with topical anesthesia and the Pentax [id number] endoscope was introduced through the mouth and advanced to the second portion of the duodenum. Retroflexed views revealed a hiatal hernia The gastroscope was then slowly withdrawn and removed. Gastritis antrum-biopsy duodenitis second portion and duodenla bulb-biopsy esophagitis distal esophagus -biopsy. ADVERSE EVENTS: There were no complications. IMPRESSIONS: 1. Gastritis antrum-biopsy duodenitis second portion and duodenla bulb-biopsy esophagitis distal esophagus -biopsy 2. Retroflexed views revealed a hiatal hernia RECOMMENDATIONS: 1. Anti-reflux regimen 2. Start PPI 3. Avoid NSAIDS 4. Clear liquids PATIENT CONDITION: stable DISPOSITION: Inpatient REPEAT EXAM: EGD pending biopsy results Lula Mejía MD eSigned: Lula Mejía MD 11/21/2016 1:01 PM cc:
[2016-11-21 16:00] VITALS: BP 125/63; PULSE 63; RESP 18; TEMP 97.1; O2SAT 97
--- NOTE | 2016-11-21 16:55 | HHI.PR ---
Subjective Subjective Notes Seen about 0800 Having EGD today Nausea resolved Objective Vitals/I&O Vital Signs Date Time Temp Pulse Resp B/P (MAP) Pulse Ox O2 Delivery O2 Flow Rate FiO2 11/21/16 13:14 56 18 113/51 (71) 95 11/21/16 13:00 97.0 11/19/16 20:01 Nasal Cannula 2.00 Labs Laboratory Tests Test 11/21/16 08:36 11/21/16 08:39 White Blood Count 5.5 Red Blood Count 3.96 Hemoglobin 10.2 Hematocrit 31.5 Mean Corpuscular Volume 79.5 Mean Corpuscular Hemoglobin 25.8 Mean Corpuscular Hemoglobin Concent 32.5 Red Cell Distribution Width 15.9 Platelet Count 236 Mean Platelet Volume 8.2 Blood Urea Nitrogen 7 Creatinine 1.22 Random Glucose 93 Calcium Level 8.6 Sodium Level 140 Potassium Level 3.4 Chloride Level 108 Carbon Dioxide Level 22.8 Anion Gap 9 Estimat Glomerular Filtration Rate 45 Date/Time Source Procedure Growth Status 11/18/16 23:45 Blood Peripheral Aerobic Blood Culture - Preliminary NO GROWTH IN 3 DAYS Resulted 11/18/16 23:45 Blood Peripheral Anaerobic Blood Culture - Final QNS - SEE AEROBE REPORT Resulted Cardiovascular: Regular Lungs: Clear Abdomen: Other (epigastric tenderness with palpation ) Extremities: No edema A/P Assessment and Plan 61 year old female with concern of gastric outlet obstruction -EGD today -NPO for procedure -Will follow results Attending Statement patient seen at bedside, agree with above await egd results pt has been improving clinically Attestation The exam, history, and the medical decision-making described in the above note were completed with the assistance of the mid-level provider. I reviewed and agree with the findings presented. I attest that I had a [id number] encounter with the patient on the same day, and personally performed and documented my assessment and findings in the medical record. Mala Calloway Nov 21, 2016 16:54 Sanjay Aviles MD Nov 25, 2016 15:36
--- NOTE | 2016-11-21 17:21 | HHI.PR ---
Subjective Remarks Patient seen after EGD. No complaints. No nausea or vomiting. Abdominal pain is mild. Objective Vitals Vital Signs Date Time Temp Pulse Resp B/P (MAP) Pulse Ox O2 Delivery O2 Flow Rate FiO2 11/21/16 13:14 56 18 113/51 (71) 95 11/21/16 13:00 97.0 58 18 94/51 (65) 95 11/21/16 12:00 97.7 57 18 122/61 (81) 97 11/21/16 08:00 98.5 68 18 163/77 (105) 96 11/21/16 05:00 97.7 50 18 119/65 (83) 96 11/21/16 00:00 97.1 51 18 119/55 (76) 97 11/20/16 20:00 98.5 78 18 170/82 (111) 97 I/O 11/20/16 11/20/16 11/20/16 11/21/16 11/21/16 11/21/16 07:00 15:00 23:00 07:00 15:00 23:00 Intake Total 1050 ml 393 ml 50 ml 1050 ml 450 ml Output Total 600 ml 700 ml 900 ml Balance 450 ml -307 ml -850 ml 1050 ml 450 ml Intake Oral 0 ml IV Total 1050 ml 393 ml 50 ml 1050 ml 50 ml Other 400 ml Output Urine Total 600 ml 700 ml 900 ml # Bowel Movements 0 Result Diagram: 11/21/16 0836 11/21/16 0839 Objective Remarks GENERAL: Patient appearing older than stated age, in no apparent distress. CARDIOVASCULAR: Normal rate and regular rhythm without murmurs, gallops, or rubs. RESPIRATORY: Good respiratory efforts. Breath sounds equal and clear to auscultation bilaterally. GASTROINTESTINAL: Abdomen soft, mildly tender to palpation diffusely. Normal active bowel sounds MUSCULOSKELETAL: Extremities without cyanosis, or edema. NEURO: Alert & Oriented x4 to person, place, time, situation. Moves all ext x4 PSYCH: Appropriate mood and affect. A/P Assessment and Plan 61-year-old female admitted with persistent nausea, vomiting, and abdominal pain. CAT scan suggests gastric outlet obstruction. Nausea/vomiting/abdominal pain - CT abdomen suggesting gastric outlet obstruction - GI following EGD/colonoscopy done today. Report pending. Awaiting further input from surgery. Clear liquid diet per GI. - Zofran when necessary Acute kidney injury: Improving - Due to above/dehydration - IV fluid hydration - I's and O's - Monitor trend of her electrolytes and creatinine level Hypertension - Continue Norvasc - Catapres - Hold lisinopril due to acute kidney injury. Plan to restart when renal functions acceptable. - Labetalol and hydralazine when necessary to keep SBP less than 160 Leukocytosis - Reactive - No symptoms of fever or any other suggesting infection - Monitor trend - Improving Anxiety - Home dose of Valium - Paxil DVT GI prophylaxis - Teds SCDs - Subcutaneous heparin - Pantoprazole Segundo Guardado MD Nov 21, 2016 17:21
[2016-11-21 21:49] VITALS: BP 134/61; PULSE 61; RESP 20; TEMP 98.4; O2SAT 96
[2016-11-22] MEDS: DEXT 5%-NACL 0.9% 1000 ML INJ 1,000 ML IV SCH ×2 (00:22→22:55)
[2016-11-22 01:39] VITALS: BP 120/61; PULSE 52; RESP 20; TEMP 97.9; O2SAT 97
[2016-11-22] MEDS: INSULIN NovoLIN REGULAR SUPPLEMENTAL SCALE SQ SCH ×4 (03:53→21:28)
[2016-11-22] MEDS: CHLORHEXIDINE GLUCONATE 2 % 1 PACK (2 CLOTHS) TOP SCH (03:53)
[2016-11-22] MEDS: PIPERACIL-TAZO 3.375 GM PREMIX 50 ML IV SCH ×4 (03:53→22:47)
[2016-11-22] MEDS: HEPARIN SODIUM - SQ 10,000 UNITS/ML VIAL SQ SCH ×3 (04:00→20:34)
[2016-11-22] MEDS: MORPHINE SULFATE 4 MG/ML INJ IV PUSH PRN ×4 (05:32→20:32)
[2016-11-22 06:20] VITALS: BP 127/68; PULSE 49; RESP 20; TEMP 98; O2SAT 96
[2016-11-22 07:49] LABS: HEMATOCRIT 28.2 % (35.0-46.0); MEAN CELL VOLUME 79.8 FL (80.0-100.0); MEAN CORPUSCULAR HEMOGLOBIN 26.8 PG (27.0-34.0); MEAN CORPUSCULAR HGB CONC 33.6 % (32.0-36.0); PLATELET COUNT 204 TH/MM3 (150-450); RED BLOOD COUNT 3.53 MIL/MM3 (4.00-5.30); RED CELL DISTRIBUTION WIDTH 15.5 % (11.6-17.2); REVIEW FLAG FINAL; WHITE BLOOD COUNT 4.5 TH/MM3 (4.0-11.0)
[2016-11-22 08:00] VITALS: BP 161/79; PULSE 61; RESP 16; TEMP 97.6; O2SAT 97
[2016-11-22 08:22] LABS: BICARBONATE 24.7 MEQ/L (21.0-32.0); POTASSIUM 3.5 MEQ/L (3.5-5.1)
[2016-11-22] MEDS: PARoxetine HCL 20 MG TAB PO SCH (09:49)
[2016-11-22] MEDS: DOCUSATE SODIUM 50 MG/SENNA 8.6 MG TAB PO SCH ×2 (09:50→20:35)
[2016-11-22] MEDS: PANTOPRAZOLE SODIUM 40 MG VIAL IV PUSH SCH (09:50)
[2016-11-22] MEDS: DIAZEPAM 10 MG TAB PO SCH ×3 (09:50→17:03)
[2016-11-22] MEDS: cloNIDine HCL 0.2 MG TAB PO SCH ×2 (09:53→20:35)
--- NOTE | 2016-11-22 10:41 | HHI.GIFU ---
Subjective Remarks Resting in bed. No n/v. Mild epigastric discomfort. Tolerating clears, would like to have solids. States she always has her symptoms at home and they improve after receiving IV zofran. States she has not had nausea/vomiting since she arrived. (Yissel Buitrago) Objective Vitals I&O Vital Signs Date Time Temp Pulse Resp B/P (MAP) Pulse Ox O2 Delivery O2 Flow Rate FiO2 11/22/16 08:00 97.6 61 16 161/79 (106) 97 11/22/16 06:20 98.0 49 20 127/68 (87) 96 11/22/16 01:39 97.9 52 20 120/61 (80) 97 11/21/16 21:49 98.4 61 20 134/61 (85) 96 11/21/16 16:00 97.1 63 18 125/63 (83) 97 11/21/16 13:14 56 18 113/51 (71) 95 11/21/16 13:00 97.0 58 18 94/51 (65) 95 11/21/16 12:00 97.7 57 18 122/61 (81) 97 I/O 11/21/16 11/21/16 11/21/16 11/22/16 11/22/16 11/22/16 07:00 15:00 23:00 07:00 15:00 23:00 Intake Total 1050 ml 450 ml 144 ml 616 ml Balance 1050 ml 450 ml 144 ml 616 ml IV Total 1050 ml 50 ml 144 ml 616 ml Other 400 ml # Voids 5 Laboratory Laboratory Tests Test 11/22/16 07:05 White Blood Count 4.5 Red Blood Count 3.53 Hemoglobin 9.5 Hematocrit 28.2 Mean Corpuscular Volume 79.8 Mean Corpuscular Hemoglobin 26.8 Mean Corpuscular Hemoglobin Concent 33.6 Red Cell Distribution Width 15.5 Platelet Count 204 Mean Platelet Volume 8.6 Blood Urea Nitrogen 5 Creatinine 1.25 Random Glucose 104 Calcium Level 8.4 Sodium Level 142 Potassium Level 3.5 Chloride Level 108 Carbon Dioxide Level 24.7 Anion Gap 9 Estimat Glomerular Filtration Rate 44 Date/Time Source Procedure Growth Status 11/18/16 23:45 Blood Peripheral Aerobic Blood Culture - Preliminary NO GROWTH IN 3 DAYS Resulted 11/18/16 23:45 Blood Peripheral Anaerobic Blood Culture - Final QNS - SEE AEROBE REPORT Resulted Imaging Last Impressions Abdomen/Pelvis CT 11/18/16 2347 Signed Impressions: Service Date/Time: Saturday, November 19, 2016 00:10 - CONCLUSION: 1. Distended stomach. Differential diagnosis includes a mechanical or functional gastric outlet obstruction. 2. No evidence for small bowel obstruction. Postop partial right colectomy and appendectomy. Landry Dodson MD Chest X-Ray 11/18/16 2309 Signed Impressions: Service Date/Time: Friday, November 18, 2016 23:26 - CONCLUSION: 1. No active disease. Mild scoliosis. Landry Dodson MD Physical Exam HEENT: Normocephalic; atraumatic; no jaundice. CHEST: CTA, Resp. even/unlabored CARDIAC: RRR ABDOMEN: Soft, nondistended, nontender; no hepatosplenomegaly; bowel sounds are present in all four quadrants. EXTREMITIES: No clubbing, cyanosis, or edema. SKIN: Normal; no rash; no jaundice. CATTLE DEHORNER: No focal deficits; alert and oriented times three. (Yissel Buitrago) Assessment and Plan Plan ASSESSMENT: - Abdominal pain with nausea, vomiting, and diarrhea. Abdomen/Pelvis CT (11/19/16 )--1. Distended stomach. Differential diagnosis includes a mechanical or functional gastric outlet obstruction. 2. No evidence for small bowel obstruction. Postop partial right colectomy and appendectomy. S/P EGD (11/21/16)----> 1. Gastritis antrum -biopsy, duodenitis second portion and duodenal bulb-biopsy, esophagitis distal esophagus -biopsy 2. Retroflexed views revealed a hiatal hernia. Pathology pending. PPI. Tolerating clear liquids. Mild epigastric discomfort, no n/v since she arrived to hospital. - ? Gastric outlet obstruction. S/P EGD, no gastric outlet obstruction. Tolerating clears, will advance. S/P GS eval. - Anemia. .2. No active blood loss. - Leukocytosis. Resolved - VICK, Improving. - HTN, Anxiety per attending - Hx colon cancer 2009. PLAN: - Heart healthy diet - Await pathology - Cont. PPI - Continue Zofran prn - Monitor labs - S/P GS eval - Supportive care - Further recommendations to follow based on results of above - Patient seen and examined by Dr. Mejía and myself and this note is written on her behalf. (Yissel Buitrago) Physician Comments seen, examined agree with above asking about colonoscopy we will check her records from hospital possible drop in hb due to hydration we can consider colonoscopy before discharge (Lula Mejía MD) Yissel Buitrago Nov 22, 2016 10:41 Lula Mejía MD Nov 22, 2016 17:18
[2016-11-22 12:00] VITALS: BP 119/58; PULSE 53; RESP 20; TEMP 98.1; O2SAT 99
--- NOTE | 2016-11-22 15:09 | HHI.PR ---
Subjective Subjective Notes Resting in bed No issues Feels hungry Objective Vitals/I&O Vital Signs Date Time Temp Pulse Resp B/P (MAP) Pulse Ox O2 Delivery O2 Flow Rate FiO2 11/22/16 12:00 98.1 53 20 119/58 (78) 99 11/19/16 20:01 Nasal Cannula 2.00 Labs Laboratory Tests Test 11/22/16 07:05 White Blood Count 4.5 Red Blood Count 3.53 Hemoglobin 9.5 Hematocrit 28.2 Mean Corpuscular Volume 79.8 Mean Corpuscular Hemoglobin 26.8 Mean Corpuscular Hemoglobin Concent 33.6 Red Cell Distribution Width 15.5 Platelet Count 204 Mean Platelet Volume 8.6 Blood Urea Nitrogen 5 Creatinine 1.25 Random Glucose 104 Calcium Level 8.4 Sodium Level 142 Potassium Level 3.5 Chloride Level 108 Carbon Dioxide Level 24.7 Anion Gap 9 Estimat Glomerular Filtration Rate 44 Date/Time Source Procedure Growth Status 11/18/16 23:45 Blood Peripheral Aerobic Blood Culture - Preliminary NO GROWTH IN 4 DAYS Resulted 11/18/16 23:45 Blood Peripheral Anaerobic Blood Culture - Final QNS - SEE AEROBE REPORT Resulted Cardiovascular: Regular Lungs: Clear Abdomen: Non-distended, Non-tender Extremities: No edema A/P Assessment and Plan 61 year old female with concern of gastric outlet obstruction -S/p EGD yesterday; no gastric outlet obstruction -Advance diet as tolerated -No acute GS issues at this time Attending Statement patient seen at bedside obstruction appears to be improving continue to monitor clinically Attestation The exam, history, and the medical decision-making described in the above note were completed with the assistance of the mid-level provider. I reviewed and agree with the findings presented. I attest that I had a [id number] encounter with the patient on the same day, and personally performed and documented my assessment and findings in the medical record. Mala Calloway Nov 22, 2016 15:09 Sanjay Aviles MD Nov 26, 2016 23:02
[2016-11-22 16:00] VITALS: BP 120/58; PULSE 55; RESP 20; TEMP 98.2; O2SAT 97
--- NOTE | 2016-11-22 16:29 | HHI.PR ---
Subjective Remarks Follow-up for abdominal pain, nausea. Patient reported no ill effects secondary to yesterday's EGD. However she did report being "bloated". Patient reported having history of colon cancer in 2009. Nausea was denied this morning. Patient noted history of unexplained anemia. Patient reported having history of chronic kidney failure stage III, yet has not been referred to entry level manufacturing engineer on an outpatient basis; reported being treated on inpatient basis. Patient stated she has not had a colonoscopy in several years; since before her colon surgery 2009. No acute issues reported overnight by patient. Per RN (Art) No acute issues noted over night or since start of shift. Discussed with Dr. Mejía pt's comments about colonoscopy and anemia. Objective Vitals Vital Signs Date Time Temp Pulse Resp B/P (MAP) Pulse Ox O2 Delivery O2 Flow Rate FiO2 11/22/16 12:00 98.1 53 20 119/58 (78) 99 11/22/16 08:00 97.6 61 16 161/79 (106) 97 11/22/16 06:20 98.0 49 20 127/68 (87) 96 11/22/16 01:39 97.9 52 20 120/61 (80) 97 11/21/16 21:49 98.4 61 20 134/61 (85) 96 I/O 11/21/16 11/21/16 11/21/16 11/22/16 11/22/16 11/22/16 07:00 15:00 23:00 07:00 15:00 23:00 Intake Total 1050 ml 450 ml 144 ml 616 ml Balance 1050 ml 450 ml 144 ml 616 ml IV Total 1050 ml 50 ml 144 ml 616 ml Other 400 ml # Voids 5 Result Diagram: 11/22/1670411/22/16704 Imaging Reported Meds & Active Scripts Active Reported Protonix (Pantoprazole Sodium) 40 Mg Tab 40 Mg PO DAILY Paxil (Paroxetine HCl) 10 Mg Tab 40 Mg PO DAILY Zofran Odt (Ondansetron Odt) 4 Mg Tab 4 Mg SL TID PRN Norvasc (Amlodipine Besylate) 10 Mg Tab 10 Mg PO DAILY Lisinopril 20 Mg Tab 20 Mg PO BID Diazepam 10 Mg Tab 10 Mg PO TID Catapres (Clonidine) 0.2 Mg Tab 0.2 Mg PO Q12HR Objective Remarks GENERAL: Patient encountered laying in bed, lunch tray in front of her, SKIN: Warm and dry. HEAD: Normocephalic. EYES: No scleral icterus. No injection or drainage. NECK: Supple, trachea midline. No lymphadenopathy. CARDIOVASCULAR: Regular rate and rhythm without murmurs, gallops, or rubs. RESPIRATORY: Breath sounds equal bilaterally. No wheezes rhonchi or crackles. No accessory muscle use. GASTROINTESTINAL: Abdomen soft, non-tender, nondistended. MUSCULOSKELETAL: No cyanosis, or edema. PSYCHIATRIC: Appropriate mood and affect; insight and judgment normal. Patient was pleasant and cooperative. Procedures EGD with biopsies (x3) 11/21/16. Medications and IVs Current Medications Medications (Trade) Dose Ordered Sig/Sveta Route Start Time Stop Time Status Last Admin (Norvasc) 10 mg DAILY PO 11/19/16 09:00 11/22/16 09:50 (Catapres) 0.2 mg Q12HR PO 11/19/16 09:00 11/22/16 09:53 (Valium) 10 mg TID PO 11/19/16 09:00 11/22/16 12:33 (Paxil) 40 mg DAILY PO 11/19/16 09:00 11/22/16 09:49 (NS Flush) 2 ml UNSCH PRN IV FLUSH 11/19/16 05:00 11/20/16 10:39 (NS Flush) 2 ml BID IV FLUSH 11/19/16 09:00 11/21/16 22:06 (Protonix Inj) 40 mg DAILY IV PUSH 11/19/16 09:00 11/22/16 09:50 (Duoneb Neb) 1 ampule Q2HR NEB PRN INH 11/19/16 05:00 (Heparin Inj) 5,000 units Q8H SQ 11/19/16 05:00 11/22/16 12:33 Miscellaneous Information 1 Q361D XX 11/19/16 05:00 11/19/16 05:00 (Chlorhexidine 2% Cloth) 3 pack Taper DAILY@04 TOP 11/20/16 04:00 11/16/17 03:59 11/20/16 04:00 (Chlorhexidine 2% Cloth) 3 pack UNSCH PRN TOP 11/19/16 05:00 (Zofran Inj) 4 mg Q6HR PRN IV PUSH 11/19/16 05:00 (Tylenol) 650 mg Q6H PRN PO 11/19/16 05:00 (Morphine Inj) 2 mg Q2H PRN IV PUSH 11/19/16 05:00 11/22/16 14:45 (Duoneb Neb) 1 ampule Q2HR NEB PRN INH 11/19/16 05:00 (Sera-Colace) 1 tab BID PO 11/19/16 09:00 11/22/16 09:50 (Milk Of Magnesia Liq) 30 ml Q12H PRN PO 11/19/16 05:00 (Senokot) 17.2 mg Q12H PRN PO 11/19/16 05:00 (Dulcolax Supp) 10 mg DAILY PRN RECTAL 11/19/16 05:00 (Lactulose Liq) 30 ml DAILY PRN PO 11/19/16 05:00 (Trandate Inj) 10 mg Q4H PRN IV PUSH 11/19/16 05:30 (Apresoline Inj) 20 mg Q4H PRN IV PUSH 11/19/16 05:30 11/19/16 06:06 Piperacillin Sod/ Tazobactam Sod 50 ml @ 200 mls/hr Q6H IV 11/19/16 10:00 11/22/16 15:21 (D50w (Vial) Inj) 50 ml UNSCH PRN IV PUSH 11/19/16 09:45 (Glucagon Inj) 1 mg UNSCH PRN OTHER 11/19/16 09:45 (NovoLIN R SUPPLEMENTAL SCALE) 1 Q6H SQ 11/19/16 10:00 Dextrose/Sodium Chloride 1,000 ml @ 84 mls/hr [id number] IV 11/19/16 13:30 11/21/16 22:05 Lactated Ringer's 1,000 ml @ 30 mls/hr Q24H PRN IV 11/20/16 19:15 11/23/16 19:14 Sodium Chloride 500 ml @ 30 mls/hr [id number] PRN IV 11/20/16 19:15 11/23/16 19:14 (Lopressor) 25 mg RIVER GUIDE PRN PO 11/20/16 19:15 11/23/16 19:14 (Betadine 5% Antisepsis Kit) 1 applic RIVER GUIDE PRN EACH NARE 11/20/16 19:15 11/23/16 19:14 (Chlorhexidine 2% Cloth) 3 pack RIVER GUIDE PRN TOPICAL 11/20/16 19:15 11/23/16 19:14 (NovoLIN R INJ) See Protocol Table ... RIVER GUIDE PRN SQ 11/20/16 19:15 11/23/16 19:14 Urinary Catheter: No A/P Assessment and Plan 61-year-old female admitted with persistent nausea, vomiting, and abdominal pain. CAT scan suggests gastric outlet obstruction. Nausea: None within past 24 hours. GI biopsies pending. Diet advanced per GI. Anemia: Iron studies ordered. Labs in AM. Hypertension: Two episodes noted over past 24 hours. Supplemental medication not administered. Discontinued IV Labetalol and Hydralazine; initiated PRN Hydralazine 25 mg PO PRN for SBP>160 or DBP>90. VICK: check labs in AM. Nausea/vomiting/abdominal pain - CT abdomen suggesting gastric outlet obstruction - GI following EGD/colonoscopy done today. Report pending. Awaiting further input from surgery. Clear liquid diet per GI. - Zofran when necessary Acute kidney injury: Improving - Due to above/dehydration - IV fluid hydration - I's and O's - Monitor trend of her electrolytes and creatinine level Hypertension - Continue Norvasc - Catapres - Hold lisinopril due to acute kidney injury. Plan to restart when renal functions acceptable. - Labetalol and hydralazine when necessary to keep SBP less than 160 Leukocytosis - Reactive - No symptoms of fever or any other suggesting infection - Monitor trend - Improving Anxiety - Home dose of Valium - Paxil DVT GI prophylaxis - Teds SCDs - Subcutaneous heparin - Pantoprazole Discussed with pt, her spouse (at bedside), RN, transmitter engineer in charge and community service director, and Drs. Guardado and Kym. Discharge Planning Initial plan is for pt to return home. Willy Rushing Jr. Nov 22, 2016 16:29
[2016-11-22] MEDS ORDERED: hydrALAZINE HCL 25 MG TAB PO PRN (17:15)
[2016-11-22 20:00] VITALS: BP 139/65; PULSE 65; RESP 18; TEMP 98.3; O2SAT 96
[2016-11-22] MEDS: SODIUM CHLORIDE 0.9% FLUSH 10 ML FLUSH IV FLUSH SCH (21:00)
[2016-11-23] VITALS (7 sets, daily range): BP systolic 96–171; BP diastolic 50–79; PULSE 55–100; RESP 16–20; TEMP 98–98.6; O2SAT 94–100
[2016-11-23] MEDS: MORPHINE SULFATE 4 MG/ML INJ IV PUSH PRN ×5 (03:03→23:43)
[2016-11-23] MEDS: PIPERACIL-TAZO 3.375 GM PREMIX 50 ML IV SCH ×4 (03:44→22:54)
[2016-11-23] MEDS: INSULIN NovoLIN REGULAR SUPPLEMENTAL SCALE SQ SCH ×4 (03:47→22:57)
[2016-11-23] MEDS: CHLORHEXIDINE GLUCONATE 2 % 1 PACK (2 CLOTHS) TOP SCH (04:00)
[2016-11-23] MEDS: HEPARIN SODIUM - SQ 10,000 UNITS/ML VIAL SQ SCH ×3 (05:28→20:43)
[2016-11-23 07:09] LABS: HEMATOCRIT 28.6 % (35.0-46.0); MEAN CELL VOLUME 79.2 FL (80.0-100.0); MEAN CORPUSCULAR HEMOGLOBIN 26.7 PG (27.0-34.0); MEAN CORPUSCULAR HGB CONC 33.7 % (32.0-36.0); PLATELET COUNT 215 TH/MM3 (150-450); RED BLOOD COUNT 3.61 MIL/MM3 (4.00-5.30); RED CELL DISTRIBUTION WIDTH 15.4 % (11.6-17.2); REVIEW FLAG FINAL; WHITE BLOOD COUNT 4.2 TH/MM3 (4.0-11.0)
[2016-11-23 07:18] LABS: ANION GAP 9 MEQ/L (5-15); BICARBONATE 24.3 MEQ/L (21.0-32.0); BLOOD UREA NITROGEN 6 MG/DL (7-18); CHLORIDE 109 MEQ/L (98-107); GLOMERULAR FILTRATION RATE 40 ML/MIN (>89); POTASSIUM 3.4 MEQ/L (3.5-5.1); SODIUM (NA) 142 MEQ/L (136-145)
[2016-11-23 07:19] LABS: TRANSFERRIN IRON PROFILE 269 MG/DL (200-360)
[2016-11-23] MEDS: DIAZEPAM 10 MG TAB PO SCH ×3 (08:25→17:38)
[2016-11-23] MEDS: PARoxetine HCL 20 MG TAB PO SCH (08:25)
[2016-11-23] MEDS: cloNIDine HCL 0.2 MG TAB PO SCH ×2 (08:25→20:43)
[2016-11-23] MEDS: DOCUSATE SODIUM 50 MG/SENNA 8.6 MG TAB PO SCH ×2 (08:25→20:43)
[2016-11-23] MEDS: SODIUM CHLORIDE 0.9% FLUSH 10 ML FLUSH IV FLUSH SCH ×2 (08:26→20:44)
[2016-11-23] MEDS: PANTOPRAZOLE SODIUM 40 MG VIAL IV PUSH SCH (08:26)
--- NOTE | 2016-11-23 10:31 | HHI.GIFU ---
GI Follow-up Note Consult Follow-up Colonoscopy (04/01/13)---> Anastomotic site in the right side of the colon, diverticulosis, sigmoid and descending colon, retroflexion revealed internal hemorrhoids. No gross lesions were seen, random biopsy from left colon was performed to rule out microscopic colitis. Pathology left side colon with benign colonic mucosa with no significant histopathology. Yissel Buitrago Nov 23, 2016 10:31
--- NOTE | 2016-11-23 11:11 | HHI.GIFU ---
Subjective Remarks Resting in bed. No n/v. Tolerating diet. Continues to have diffuse abdominal discomfort- mild. (Yissel Buitrago) Objective Vitals I&O Vital Signs Date Time Temp Pulse Resp B/P (MAP) Pulse Ox O2 Delivery O2 Flow Rate FiO2 11/23/16 08:38 98.1 61 16 171/79 (109) 95 11/23/16 08:34 95 11/23/16 04:00 98.2 56 18 136/72 (93) 95 11/23/16 00:00 98.1 55 18 96/50 (65) 95 11/22/16 20:00 98.3 65 18 139/65 (89) 96 11/22/16 16:00 98.2 55 20 120/58 (78) 97 11/22/16 12:00 98.1 53 20 119/58 (78) 99 I/O 11/22/16 11/22/16 11/22/16 11/23/16 11/23/16 11/23/16 07:00 15:00 23:00 07:00 15:00 23:00 Intake Total 616 ml 50 ml Balance 616 ml 50 ml IV Total 616 ml 50 ml # Voids 5 2 1 Laboratory Laboratory Tests Test 11/23/16 06:05 White Blood Count 4.2 Red Blood Count 3.61 Hemoglobin 9.6 Hematocrit 28.6 Mean Corpuscular Volume 79.2 Mean Corpuscular Hemoglobin 26.7 Mean Corpuscular Hemoglobin Concent 33.7 Red Cell Distribution Width 15.4 Platelet Count 215 Mean Platelet Volume 8.5 Blood Urea Nitrogen 6 Creatinine 1.36 Random Glucose 107 Calcium Level 8.6 Sodium Level 142 Potassium Level 3.4 Chloride Level 109 Carbon Dioxide Level 24.3 Anion Gap 9 Estimat Glomerular Filtration Rate 40 Iron Level 34 Total Iron Binding Capacity 377 Percent Iron Saturation 9.0 Date/Time Source Procedure Growth Status 11/18/16 23:45 Blood Peripheral Aerobic Blood Culture - Final NO GROWTH IN 5 DAYS Complete 11/18/16 23:45 Blood Peripheral Anaerobic Blood Culture - Final QNS - SEE AEROBE REPORT Complete Imaging Last Impressions Abdomen/Pelvis CT 11/18/16 6568 Signed Impressions: Service Date/Time: Saturday, November 19, 2016 00:10 - CONCLUSION: 1. Distended stomach. Differential diagnosis includes a mechanical or functional gastric outlet obstruction. 2. No evidence for small bowel obstruction. Postop partial right colectomy and appendectomy. Landry Dodson MD Chest X-Ray 11/18/16 4012 Signed Impressions: Service Date/Time: Friday, November 18, 2016 23:26 - CONCLUSION: 1. No active disease. Mild scoliosis. Landry Dodson MD Physical Exam HEENT: Normocephalic; atraumatic; no jaundice. CHEST: CTA, Resp. even/unlabored CARDIAC: RRR ABDOMEN: Soft, nondistended, mild diffuse abdominal tenderness; no hepatosplenomegaly; bowel sounds are present in all four quadrants. EXTREMITIES: No clubbing, cyanosis, or edema. SKIN: Normal; no rash; no jaundice. RUG DRY ROOM ATTENDANT: No focal deficits; alert and oriented times three. (Yissel Buitrago) Assessment and Plan Plan ASSESSMENT: - Abdominal pain with nausea, vomiting, and diarrhea. Abdomen/Pelvis CT (11/19/16 )--1. Distended stomach. Differential diagnosis includes a mechanical or functional gastric outlet obstruction. 2. No evidence for small bowel obstruction. Postop partial right colectomy and appendectomy. S/P EGD (11/21/16)----> 1. Gastritis antrum -biopsy, duodenitis second portion and duodenal bulb-biopsy, esophagitis distal esophagus -biopsy 2. Retroflexed views revealed a hiatal hernia. Pathology gastric mucosa without significant histopathologic abnormality, duodenal mucosa without significant histopathologic abnormality, distal esophagus with hyperplastic squamous mucosa and adjacent gastric mucosa with moderate acute and chronic inflammation, negative for intestinal metaplasia, dysplasia, or malignancy. PPI. Tolerating diet. Mild epigastric discomfort, no n/v since she arrived to hospital. - ? Gastric outlet obstruction. S/P EGD, no gastric outlet obstruction. CANDACE. S/P GS eval. - Anemia. 9.6.6 No active blood loss. - Leukocytosis. Resolved - VICK, Improving. - HTN, Anxiety per attending - Hx colon cancer 2009. S/P Partial colectomy. Chemotherapy was recommended, but patient declined- per patient. Last colonoscopy (04/01/13)---> Anastomotic site in the right side of the colon, diverticulosis , sigmoid and descending colon, retroflexion revealed internal hemorrhoids. No gross lesions were seen, random biopsy from left colon was performed to rule out microscopic colitis. Pathology left side colon with benign colonic mucosa with no significant histopathology. PLAN: - Plan for colonoscopy tomorrow - Obtain consents - Clear liquids - NPO after MN - Golytely prep - Hold heparin after MN - Cont. PPI - Continue Zofran prn - Monitor labs - S/P GS eval - Supportive care - Further recommendations to follow based on results of above - Patient seen and examined by Dr. Mejía and myself and this note is written on her behalf. (Yissel Buitrago) Physician Comments seen, examined agree with above (Lula Mejía MD) Yissel Buitrago Nov 23, 2016 11:11 Lula Mejía MD Nov 23, 2016 18:09
[2016-11-23] MEDS: FERROUS SULFATE 325 MG (65 MG ELEMENTAL IRON) TAB PO SCH ×2 (12:38→17:38)
[2016-11-23] MEDS: ASCORBIC ACID 500 MG TAB PO SCH ×2 (12:38→17:38)
[2016-11-23] MEDS: DEXT 5%-NACL 0.9% 1000 ML INJ 1,000 ML IV SCH (13:13)
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
[2016-11-23] MEDS ORDERED: PEG (High)/E-LYTE SOLN 4000 ML BTL PO ONE (16:00)
--- NOTE | 2016-11-23 16:50 | HHI.PR ---
Subjective Subjective Notes Resting in bed Tolerated diet No nausea Minimal abdominal pain Objective Vitals/I&O Vital Signs Date Time Temp Pulse Resp B/P (MAP) Pulse Ox O2 Delivery O2 Flow Rate FiO2 11/23/16 12:15 98.0 63 16 121/66 (84) 97 11/19/16 20:01 Nasal Cannula 2.00 Labs Laboratory Tests Test 11/23/16 06:05 White Blood Count 4.2 Red Blood Count 3.61 Hemoglobin 9.6 Hematocrit 28.6 Mean Corpuscular Volume 79.2 Mean Corpuscular Hemoglobin 26.7 Mean Corpuscular Hemoglobin Concent 33.7 Red Cell Distribution Width 15.4 Platelet Count 215 Mean Platelet Volume 8.5 Blood Urea Nitrogen 6 Creatinine 1.36 Random Glucose 107 Calcium Level 8.6 Sodium Level 142 Potassium Level 3.4 Chloride Level 109 Carbon Dioxide Level 24.3 Anion Gap 9 Estimat Glomerular Filtration Rate 40 Iron Level 34 Total Iron Binding Capacity 377 Percent Iron Saturation 9.0 Date/Time Source Procedure Growth Status 11/18/16 23:45 Blood Peripheral Aerobic Blood Culture - Final NO GROWTH IN 5 DAYS Complete 11/18/16 23:45 Blood Peripheral Anaerobic Blood Culture - Final QNS - SEE AEROBE REPORT Complete Cardiovascular: Regular Lungs: Clear Abdomen: Non-distended, Non-tender Extremities: No edema A/P Assessment and Plan 61 year old female with concern of gastric outlet obstruction -S/p EGD yesterday; no gastric outlet obstruction -Tolerating heart healthy diet -No acute GS issues at this time Attending Statement patient seen at bedside tolerating diet pain better await further gi recs Attestation The exam, history, and the medical decision-making described in the above note were completed with the assistance of the mid-level provider. I reviewed and agree with the findings presented. I attest that I had a [id number] encounter with the patient on the same day, and personally performed and documented my assessment and findings in the medical record. Mala Calloway Nov 23, 2016 16:50 Sanjay Aviles MD Nov 26, 2016 23:14
[2016-11-24] VITALS (7 sets, daily range): BP systolic 110–161; BP diastolic 54–83; PULSE 51–66; RESP 16–20; TEMP 97.8–98.7; O2SAT 95–98
[2016-11-24] MEDS: DEXT 5%-NACL 0.9% 1000 ML INJ 1,000 ML IV SCH (02:59)
[2016-11-24] MEDS: MORPHINE SULFATE 4 MG/ML INJ IV PUSH PRN ×5 (03:06→21:22)
[2016-11-24] MEDS: CHLORHEXIDINE GLUCONATE 2 % 1 PACK (2 CLOTHS) TOP SCH (04:00)
[2016-11-24] MEDS: PIPERACIL-TAZO 3.375 GM PREMIX 50 ML IV SCH ×4 (04:39→21:26)
[2016-11-24] MEDS: INSULIN NovoLIN REGULAR SUPPLEMENTAL SCALE SQ SCH ×4 (04:46→21:59)
[2016-11-24] MEDS: PARoxetine HCL 20 MG TAB PO SCH (08:23)
[2016-11-24] MEDS: DIAZEPAM 10 MG TAB PO SCH ×3 (08:23→17:02)
[2016-11-24] MEDS: cloNIDine HCL 0.2 MG TAB PO SCH ×2 (08:23→21:41)
[2016-11-24] MEDS: SODIUM CHLORIDE 0.9% FLUSH 10 ML FLUSH IV FLUSH SCH ×2 (08:24→21:00)
[2016-11-24] MEDS: PANTOPRAZOLE SODIUM 40 MG VIAL IV PUSH SCH (08:24)
[2016-11-24] MEDS: DOCUSATE SODIUM 50 MG/SENNA 8.6 MG TAB PO SCH ×2 (08:27→21:26)
[2016-11-24] MEDS ORDERED: DO NOT ADM ANY ANTICOAGULANT DRUGS PRN (10:31)
--- NOTE | 2016-11-24 10:48 | GIPROC ---
[facility] [address] [facility] [place]. [facility], [address] COLONOSCOPY PROCEDURE REPORT EXAM DATE: 11/24/2016 PATIENT NAME: Diann Lopez MR #: [id number] BIRTHDATE: 1955 ENDOSCOPIST: Lula Mejía MD ORDER #: [id number] SACK SORTER: Larry Skinner and Sagrario Garrett STATUS: inpatient INDICATIONS: The patient is a 61 yr old female here for a colonoscopy due to anemia, history of colon cancer PROCEDURE PERFORMED: Colonoscopy with biopsy MEDICATIONS: None and Per Anesthesia. PREP QUALITY: good PREP TYPE:Other: ESTIMATED BLOOD LOSS: None CONSENT: The patient understands the risks and benefits of the procedure and understands that these risks include, but are not limited to: sedation, allergic reaction, infection, perforation and/or bleeding. Alternative means of evaluation and treatment include, among others: physical exam, x-rays, and/or surgical intervention. The patient elects to proceed with this endoscopic procedure. medical equipment was checked for proper function. Hand hygiene and appropriate measures for infection prevention was taken. After the risks, benefits and alternatives of the procedure were thoroughly explained, Informed consent was verified, confirmed and timeout was successfully executed by the treatment team. A digital exam revealed external hemorrhoids The Pentax [id number] endoscope was introduced through the anus and advanced to the cecum, which was identified by both the appendix and ileocecal valve. The instrument was then slowly withdrawn as the colon was fully examined. COLON FINDINGS: Diverticulosis sigmoid,descending internal hemorrhoids anastomtic site right colon random biopsise from descending colon-r/o microscopic colitis. Retroflexed views revealed internal hemorrhoids and Retroflexed views revealed small internal hemorrhoids The scope was then completely withdrawn from the patient and the procedure terminated. PROCEDURE WITHDRAWAL TIME:6minutes ADVERSE EVENTS: There were no complications. IMPRESSIONS: 1. Diverticulosis sigmoid,descending internal hemorrhoids anastomtic site right colon random biopsise from descending colon-r/o microscopic colitis 2. Retroflexed views revealed internal hemorrhoids 3. Retroflexed views revealed small internal hemorrhoids 4. Revealed external hemorrhoids RECOMMENDATIONS: 1. Await biopsy results. Biopsy results will not be ready for 7-10 days. If you don't hear from us in two weeks, call our office for results. 2. Benefiber 2 tsp daily 3. High fiber diet 4. Probiotics from any [employer] or health food store 5. Yearly rectal exams 6. Us of mesenteric vessels -r/o mesenteric ischemia sbft elevated alp-will send aditional blood work RECALL: Return 3 years Colonoscopy Lula Mejía MD eSigned: Lula Mejía MD 11/24/2016 10:48 AM cc: PATIENT NAME: Diann Lopez MR#: [id number]
[2016-11-24] MEDS ORDERED: CHLORHEXIDINE GLUCONATE 2 % 1 PACK (2 CLOTHS) TOPICAL PRN (11:15)
[2016-11-24] MEDS ORDERED: METOPROLOL TARTRATE 25 MG TAB PO PRN (11:15)
[2016-11-24] MEDS ORDERED: INSULIN HUMAN REGULAR 1,000 UNITS/10 ML VIAL SQ PRN (11:15)
[2016-11-24] MEDS ORDERED: LACTATED RINGER'S 1000 ML IV PRN (11:15)
[2016-11-24] MEDS ORDERED: SODIUM CHLORID 0.9% 500 ML IV PRN (11:15)
[2016-11-24] MEDS ORDERED: POVIDONE IODINE 5% (ANTISEPSIS KIT) 4 APPLICATIONS EACH NARE PRN (11:15)
--- NOTE | 2016-11-24 11:32 | HHI.PR ---
Subjective Subjective Notes Resting in bed Ready to have colonoscopy today Objective Vitals/I&O Vital Signs Date Time Temp Pulse Resp B/P (MAP) Pulse Ox O2 Delivery O2 Flow Rate FiO2 11/24/16 10:35 98.5 46 18 97/55 (69) 97 Labs Date/Time Source Procedure Growth Status 11/18/16 23:45 Blood Peripheral Aerobic Blood Culture - Final NO GROWTH IN 5 DAYS Complete 11/18/16 23:45 Blood Peripheral Anaerobic Blood Culture - Final QNS - SEE AEROBE REPORT Complete Cardiovascular: Regular Lungs: Clear Abdomen: Non-distended, Non-tender Extremities: No edema A/P Assessment and Plan 61 year old female with concern of gastric outlet obstruction -S/p EGD; no gastric outlet obstruction -Colonoscopy today -CANDACE -No acute GS issues at this time Attending Statement patient seen at bedside colonoscopy today await results pt clinically better Attestation The exam, history, and the medical decision-making described in the above note were completed with the assistance of the mid-level provider. I reviewed and agree with the findings presented. I attest that I had a [id number] encounter with the patient on the same day, and personally performed and documented my assessment and findings in the medical record. Mala Calloway Nov 24, 2016 11:24 Sanjay Aviles MD Nov 26, 2016 23:27
[2016-11-24] MEDS ORDERED: MAGNESIUM CITRATE SOLN 300 ML BTL PO ONE ×2 (12:00→18:00)
[2016-11-24] MEDS: FERROUS SULFATE 325 MG (65 MG ELEMENTAL IRON) TAB PO SCH ×2 (12:00→16:46)
[2016-11-24] MEDS: ASCORBIC ACID 500 MG TAB PO SCH ×2 (12:00→17:00)
[2016-11-24] MEDS ORDERED: PROPOFOL 200 MG/20 ML AMP ONE (14:21)
--- NOTE | 2016-11-24 16:23 | RADRPT ---
EXAM DATE/TIME: 11/24/2016 12:30 [facility] COMPARISON: CT ABDOMEN & PELVIS W/O CONTRAST, November 02, 2016, 2:23. INDICATIONS : Abdominal pain and history of intractable nausea and vomiting for 15 years, dehydration and sepsis. H istory of partial colectomy. FLUORO TIME: 1.3 minutes IMAGE COUNT: 15 CONTRAST: Entero Vu 24% Barium Sulfate (24% w/v, 20% w/w) IMAGING TIME(S): 15 min, 30 min, 45 min, 1 hr, 1.5 hrs, 2.5 hrs2 hour. MEDICAL HISTORY : Carcinoma, colon. hypertension, vomiting SURGICAL HISTORY : Appendectomy. colon resection, renal artery stent ENCOUNTER: Subsequent ACUITY: 1 week PAIN SCORE: 10/10 LOCATION: Bilateral abdomen FINDINGS: Preliminary city superintendent film demonstrates mild gaseous distention in the transverse colon. There is no free air. The upper GI series demonstrates that the stomach is unremarkable in appearance. The jejunum an d ileum are normal in size and fold thickness. There is a normal transit time. The patient is status post partial right colectomy with anastomosis in the right side of the upper pelvis. The stomach is grossly unremarkable. There is no evidence of obstruction or fistula. The distal ileum appears unrema rkable. CONCLUSION: 1. Status post partial right colectomy with an anastomosis. The small bowel is unremarkable with no e vidence of obstruction. 2. Mild dilatation of the transverse colon. Roberto Crowder MD on November 24, 2016 at 16:19 Board Certified Radiologist. This report was verified electronically.
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
--- NOTE | 2016-11-24 16:34 | HHI.PR ---
Subjective Remarks Follow-up for abdominal pain, nausea. Pt continues to endorse diffuse abdominal pain. Patient reported having undergone endoscopy this morning and small bowel series this afternoon. Patient reported having abdominal pain, rectal pain, back pain "from laying on a hard table for the past 4 hours" and "hunger pain" as she has not eaten since yesterday. Nausea and vomiting for the past 24 hours were denied. Patient stated she had been informed of having internal hemorrhoids and diverticulosis after her endoscopy. No acute issues reported overnight by patient. Pt denied fever, cough, shortness of breath, chest pain, diarrhea, altered bowel /bladder habits/issues. Per RN (Melodie) patient without acute issues overnight or since start of shift. Objective Vitals Vital Signs Date Time Temp Pulse Resp B/P (MAP) Pulse Ox O2 Delivery O2 Flow Rate FiO2 11/24/16 12:02 98.1 51 18 110/54 (72) 96 11/24/16 10:35 98.5 46 18 97/55 (69) 97 11/24/16 08:37 97.8 63 16 161/83 (109) 98 11/24/16 06:33 98.4 57 20 137/79 (98) 95 11/24/16 01:41 98.5 61 18 120/58 (78) 98 11/23/16 20:00 98.2 59 20 134/62 (86) 96 11/23/16 16:56 98.0 62 16 136/63 (87) 94 I/O 11/23/16 11/23/16 11/23/16 11/24/16 11/24/16 11/24/16 07:00 15:00 23:00 07:00 15:00 23:00 Intake Total 1290 ml 50 ml 200 ml Output Total 200 ml Balance 1290 ml 50 ml -200 ml 200 ml Intake Oral 240 ml IV Total 1050 ml 50 ml Other 200 ml Output Urine Total 200 ml # Voids 1 4 # Bowel Movements 1 Result Diagram: 11/23/1660411/23/16604 Imaging Last Impressions Abdomen/Pelvis CT 11/18/16 3892 Signed Impressions: Service Date/Time: Saturday, November 19, 2016 00:10 - CONCLUSION: 1. Distended stomach. Differential diagnosis includes a mechanical or functional gastric outlet obstruction. 2. No evidence for small bowel obstruction. Postop partial right colectomy and appendectomy. Landry Dodson MD Chest X-Ray 11/18/16 4754 Signed Impressions: Service Date/Time: Friday, November 18, 2016 23:26 - CONCLUSION: 1. No active disease. Mild scoliosis. Landry Dodson MD Objective Remarks GENERAL: Patient encountered sitting up in bed, family/friend at bedside, NAD SKIN: Warm and dry. HEAD: Normocephalic. EYES: No scleral icterus. No injection or drainage. NECK: Supple, trachea midline. No lymphadenopathy. CARDIOVASCULAR: Regular rate and rhythm without murmurs, gallops, or rubs. RESPIRATORY: Breath sounds equal bilaterally. No wheezes rhonchi or crackles. No accessory muscle use. GASTROINTESTINAL: Abdomen soft, non-tender, nondistended. MUSCULOSKELETAL: No cyanosis, or edema. PSYCHIATRIC: Appropriate mood and affect; insight and judgment normal. Patient was pleasant and cooperative. Procedures EGD with biopsies (x3) 11/21/16. Endoscopy with biopsies 11/24/16 Small bowel series 11/24/16 Medications and IVs Current Medications Medications (Trade) Dose Ordered Sig/Sveta Route Start Time Stop Time Status Last Admin (Norvasc) 10 mg DAILY PO 11/19/16 09:00 11/24/16 08:23 (Catapres) 0.2 mg Q12HR PO 11/19/16 09:00 11/24/16 08:23 (Valium) 10 mg TID PO 11/19/16 09:00 11/24/16 13:12 (Paxil) 40 mg DAILY PO 11/19/16 09:00 11/24/16 08:23 (NS Flush) 2 ml UNSCH PRN IV FLUSH 11/19/16 05:00 11/20/16 10:39 (NS Flush) 2 ml BID IV FLUSH 11/19/16 09:00 11/24/16 08:24 (Protonix Inj) 40 mg DAILY IV PUSH 11/19/16 09:00 11/24/16 08:24 (Duoneb Neb) 1 ampule Q2HR NEB PRN INH 11/19/16 05:00 (Heparin Inj) 5,000 units Q8H SQ 11/19/16 05:00 Future Hold 11/23/16 20:43 Miscellaneous Information 1 Q361D XX 11/19/16 05:00 11/19/16 05:00 (Chlorhexidine 2% Cloth) 3 pack Taper DAILY@04 TOP 11/20/16 04:00 11/16/17 03:59 11/20/16 04:00 (Chlorhexidine 2% Cloth) 3 pack UNSCH PRN TOP 11/19/16 05:00 (Zofran Inj) 4 mg Q6HR PRN IV PUSH 11/19/16 05:00 (Tylenol) 650 mg Q6H PRN PO 11/19/16 05:00 (Morphine Inj) 2 mg Q2H PRN IV PUSH 11/19/16 05:00 11/24/16 13:11 (Duoneb Neb) 1 ampule Q2HR NEB PRN INH 11/19/16 05:00 (Sera-Colace) 1 tab BID PO 11/19/16 09:00 11/23/16 20:43 (Milk Of Magnesia Liq) 30 ml Q12H PRN PO 11/19/16 05:00 (Senokot) 17.2 mg Q12H PRN PO 11/19/16 05:00 (Dulcolax Supp) 10 mg DAILY PRN RECTAL 11/19/16 05:00 (Lactulose Liq) 30 ml DAILY PRN PO 11/19/16 05:00 Piperacillin Sod/ Tazobactam Sod 50 ml @ 200 mls/hr Q6H IV 11/19/16 10:00 11/24/16 09:50 (D50w (Vial) Inj) 50 ml UNSCH PRN IV PUSH 11/19/16 09:45 (Glucagon Inj) 1 mg UNSCH PRN OTHER 11/19/16 09:45 (NovoLIN R SUPPLEMENTAL SCALE) 1 Q6H SQ 11/19/16 10:00 Dextrose/Sodium Chloride 1,000 ml @ 84 mls/hr [id number] IV 11/19/16 13:30 11/24/16 02:59 (Apresoline) 25 mg Q12HR PRN PO 11/22/16 17:15 (Ferrous Sulfate) 325 mg BID@12,17 PO 11/23/16 12:00 11/23/16 17:38 (Vitamin C) 500 mg BID@1200,1700 PO 11/23/16 12:00 11/23/16 17:38 (Hemorrhoidal Hc Supp) 25 mg BID RECTAL 11/24/16 21:00 (Citroma Liq) 300 ml ONCE ONCE PO 11/24/16 18:00 11/24/16 18:01 (Dulcolax Ec) 10 mg DAILY@18,21 PO 11/24/16 18:00 11/24/16 21:01 Lactated Ringer's 1,000 ml @ 30 mls/hr Q24H PRN IV 11/24/16 11:15 11/27/16 11:14 Sodium Chloride 500 ml @ 30 mls/hr [id number] PRN IV 11/24/16 11:15 11/27/16 11:14 (Lopressor) 25 mg MANAGER DRUG SAFETY PRN PO 11/24/16 11:15 11/27/16 11:14 (Betadine 5% Antisepsis Kit) 1 applic MANAGER DRUG SAFETY PRN EACH NARE 11/24/16 11:15 11/27/16 11:14 (Chlorhexidine 2% Cloth) 3 pack MANAGER DRUG SAFETY PRN TOPICAL 11/24/16 11:15 11/27/16 11:14 (NovoLIN R INJ) See Protocol Table ... MANAGER DRUG SAFETY PRN SQ 11/24/16 11:15 11/27/16 11:14 Miscellaneous Information ALL NURSING DEPARTME... UNSCH PRN .XX 11/24/16 10:31 11/25/16 10:30 Urinary Catheter: No A/P Assessment and Plan 61-year-old female admitted with persistent nausea, vomiting, and abdominal pain. CAT scan suggests gastric outlet obstruction. Nausea: None within past 24 hours. GI biopsies negative. Pt tolerating recent diet advancement. Endoscopy indicated the presence of internal hemorrhoids and diverticulosis. Small bowel series undertaken with results pending.. Anemia: Patient tolerating addition of iron and vitamin C to address her anemia. Hypertension: Two episodes noted over past 24 hours. Supplemental medication not administered. VICK: Labs in a.m. Anxiety: Still awaiting psychiatric evaluation. Nausea/vomiting/abdominal pain - CT abdomen suggesting gastric outlet obstruction - GI following EGD/colonoscopy done today. Report pending. Awaiting further input from surgery. Clear liquid diet per GI. - Zofran when necessary Acute kidney injury: Improving - Due to above/dehydration - IV fluid hydration - I's and O's - Monitor trend of her electrolytes and creatinine level Hypertension - Continue Norvasc - Catapres - Hold lisinopril due to acute kidney injury. Plan to restart when renal functions acceptable. - Labetalol and hydralazine when necessary to keep SBP less than 160 Leukocytosis - Reactive - No symptoms of fever or any other suggesting infection - Monitor trend - Improving Anxiety - Home dose of Valium - Paxil DVT GI prophylaxis - Teds SCDs - Subcutaneous heparin - Pantoprazole Discussed with pt, RN, GI ATTENDING AMBULATORY CARE, and Dr. Guardado. Discharge Planning Initial plan is for pt to return home. Willy Rushing Jr. JUSTINE Nov 24, 2016 16:34
[2016-11-24] MEDS: BISACODYL EC 5 MG TABEC PO SCH ×2 (17:02→21:00)
[2016-11-24] MEDS: HYDROCORTISONE ACETATE 25 MG SUPP RECTAL SCH (21:00)
[2016-11-25] VITALS (7 sets, daily range): BP systolic 107–140; BP diastolic 48–82; PULSE 49–66; RESP 17–20; TEMP 97.9–99; O2SAT 94–98
[2016-11-25] MEDS: DEXT 5%-NACL 0.9% 1000 ML INJ 1,000 ML IV SCH ×3 (00:35→16:24)
[2016-11-25] MEDS: INSULIN NovoLIN REGULAR SUPPLEMENTAL SCALE SQ SCH ×4 (04:00→22:00)
[2016-11-25] MEDS: CHLORHEXIDINE GLUCONATE 2 % 1 PACK (2 CLOTHS) TOP SCH (04:00)
[2016-11-25] MEDS: PIPERACIL-TAZO 3.375 GM PREMIX 50 ML IV SCH ×4 (04:12→22:08)
[2016-11-25] MEDS: MORPHINE SULFATE 4 MG/ML INJ IV PUSH PRN ×6 (04:23→22:08)
[2016-11-25 08:15] LABS: HEMATOCRIT 29.9 % (35.0-46.0); MEAN CELL VOLUME 79.7 FL (80.0-100.0); MEAN CORPUSCULAR HEMOGLOBIN 26.5 PG (27.0-34.0); MEAN CORPUSCULAR HGB CONC 33.2 % (32.0-36.0); PLATELET COUNT 239 TH/MM3 (150-450); RED BLOOD COUNT 3.75 MIL/MM3 (4.00-5.30); RED CELL DISTRIBUTION WIDTH 16.2 % (11.6-17.2); REVIEW FLAG FINAL; WHITE BLOOD COUNT 5.5 TH/MM3 (4.0-11.0)
[2016-11-25] MEDS: SODIUM CHLORIDE 0.9% FLUSH 10 ML FLUSH IV FLUSH SCH ×2 (08:22→21:00)
[2016-11-25] MEDS: DOCUSATE SODIUM 50 MG/SENNA 8.6 MG TAB PO SCH ×2 (08:23→22:28)
[2016-11-25] MEDS: PARoxetine HCL 20 MG TAB PO SCH (08:23)
[2016-11-25] MEDS: cloNIDine HCL 0.2 MG TAB PO SCH ×2 (08:23→22:08)
[2016-11-25] MEDS: DIAZEPAM 10 MG TAB PO SCH ×3 (08:23→17:07)
[2016-11-25] MEDS: PANTOPRAZOLE SODIUM 40 MG VIAL IV PUSH SCH (08:24)
[2016-11-25] MEDS: HYDROCORTISONE ACETATE 25 MG SUPP RECTAL SCH ×2 (08:28→21:00)
[2016-11-25 08:32] LABS: BICARBONATE 24.1 MEQ/L (21.0-32.0); POTASSIUM 3.6 MEQ/L (3.5-5.1)
--- NOTE | 2016-11-25 09:25 | RADRPT ---
EXAM DATE/TIME: 11/25/2016 07:46 [facility] COMPARISON: CT ABDOMEN & PELVIS W/O CONTRAST, November 19, 2016, 0:10. INDICATIONS : Abdominal pain. MEDICAL HISTORY : Hypertension. Carcinoma, cancer. Arthritis. Carcinoma, colon. Clostridium difficile. Blood rodriguez sfusion. SURGICAL HISTORY : Appendectomy. Tubal ligation. Renal artery stent. Colectomy. Lumpectomy, left. ENCOUNTER: Initial ACUITY: >1 year PAIN SCORE: 5/10 LOCATION: Abdomen. AORTA: SAGITTAL PROXIMAL: 102.7 cm/sec SAGITTAL MID: 102.7 cm/sec SAGITTAL DISTAL: 75.3 cm/sec CELIAC ARTERY: CA ORIGIN: 302.5 cm/sec CA PROXIMAL: 177.6 cm/sec CA MID: 168.8 cm/sec CA DISTAL: 168.8 cm/sec HEPATIC ARTERY: 196.9 cm/sec SPLENIC ARTERY: 149.6 cm/sec SUPERIOR MESENTERIC ARTERY: SMA PROXIMAL: 186.6 cm/sec SMA MID: 133.7 cm/sec SMA DISTAL: 192.3 cm/sec FINDINGS: There is increased peak systolic velocity of 287 cm/s at the SMA origin which measures approximately 5.5 mm. There is also increased peak systolic velocity of 303 cm/s in at the celiac origin. Flow is d emonstrated in the distal celiac and SMA branches. CONCLUSION: 1. 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 Involvement of 2 mesenteric vessels predisposes this patient to po stprandial mesenteric ischemia, although likely not severe. Further evaluation may be performed with CTA or angiography. Kade Oneal MD on November 25, 2016 at 9:05 Board Certified Radiologist. This report was verified electronically.
[2016-11-25] MEDS: FERROUS SULFATE 325 MG (65 MG ELEMENTAL IRON) TAB PO SCH ×2 (12:09→17:07)
[2016-11-25] MEDS: ASCORBIC ACID 500 MG TAB PO SCH ×2 (12:13→17:07)
--- NOTE | 2016-11-25 13:17 | HHI.PR ---
Subjective Remarks Follow-up for abdominal pain, nausea. Pt continues to endorse diffuse abdominal pain. Patient noted that other than the pain she was feeling "okay". Patient stated that eating does not cause pain and having a bowel movement does not ease pain or increase it. Nausea and vomiting for the past 24 hours were denied. Patient stated that she was seen by psychiatry yesterday. Patient noted that she will be following up with PCP, psychiatry, and neurology after discharge. No acute issues reported overnight by patient. Pt denied fever, cough, shortness of breath, chest pain, diarrhea, altered bowel /bladder habits/issues. Per RN (Melodie) patient without acute issues overnight or since start of shift. Nurse stated that patient had undergone ultrasound examination this morning. Case reviewed with GI STEAMER BLOCKER (Yissel Buitrago). Objective Vitals Vital Signs Date Time Temp Pulse Resp B/P (MAP) Pulse Ox O2 Delivery O2 Flow Rate FiO2 11/25/16 12:14 98.6 58 18 132/56 (81) 98 11/25/16 08:50 98.4 57 18 126/64 (84) 96 11/25/16 04:00 98.0 55 18 134/67 (89) 94 11/25/16 01:12 53 11/25/16 00:00 97.9 49 18 107/48 (67) 96 11/24/16 23:50 14 11/24/16 20:00 98.5 66 18 125/60 (81) 95 11/24/16 17:59 97 11/24/16 16:39 98.7 60 18 155/68 (97) 97 I/O 11/24/16 11/24/16 11/24/16 11/25/16 11/25/16 11/25/16 07:00 15:00 23:00 07:00 15:00 23:00 Intake Total 200 ml 530 ml 1050 ml Output Total 200 ml Balance -200 ml 200 ml 530 ml 1050 ml Intake Oral 480 ml IV Total 50 ml 1050 ml Other 200 ml Output Urine Total 200 ml # Voids 4 1 # Bowel Movements 4 0 Result Diagram: 11/25/16 0735 11/25/16 0735 Imaging Last Impressions Abdomen Ultrasound 11/25/16 0000 Signed Impressions: Service Date/Time: Friday, November 25, 2016 07:46 - CONCLUSION: 1. Findings consistent with moderate, greater than 50%%, stenosis of the celiac artery origin and nearly 50%% stenosis of the SMA origin. Involvement of 2 mesenteric vessels predisposes this patient to postprandial mesenteric ischemia, although likely not severe. Further evaluation may be performed with CTA or angiography. Kade Oneal MD Small Bowel X-Ray 11/24/16 0000 Signed Impressions: Service Date/Time: November 12:30 - CONCLUSION: 1. Status post partial right colectomy with an anastomosis. The small bowel is unremarkable with no evidence of obstruction. 2. Mild dilatation of the transverse colon. Roberto Crowder MD Abdomen/Pelvis CT 11/18/16 2347 Signed Impressions: Service Date/Time: Saturday, November 19, 2016 00:10 - CONCLUSION: 1. Distended stomach. Differential diagnosis includes a mechanical or functional gastric outlet obstruction. 2. No evidence for small bowel obstruction. Postop partial right colectomy and appendectomy. Landry Dodson MD Chest X-Ray 11/18/16 7620 Signed Impressions: Service Date/Time: Friday, November 18, 2016 23:26 - CONCLUSION: 1. No active disease. Mild scoliosis. Landry Dodson MD Objective Remarks GENERAL: Patient encountered sitting up in bed, eating breakfast, NAD SKIN: Warm and dry. HEAD: Normocephalic. EYES: No scleral icterus. No injection or drainage. NECK: Supple, trachea midline. No lymphadenopathy. CARDIOVASCULAR: Regular rate and rhythm without murmurs, gallops, or rubs. RESPIRATORY: Breath sounds equal bilaterally. No wheezes rhonchi or crackles. No accessory muscle use. GASTROINTESTINAL: Abdomen soft, non-tender, nondistended. MUSCULOSKELETAL: No cyanosis, or edema. PSYCHIATRIC: Appropriate mood and affect; insight and judgment normal. Patient was pleasant and cooperative. Procedures EGD with biopsies (x3) 11/21/16. Endoscopy with biopsies 11/24/16 Small bowel series 11/24/16 Abdominal ultrasound 11/25/16 Medications and IVs Current Medications Medications (Trade) Dose Ordered Sig/Sveta Route Start Time Stop Time Status Last Admin (Norvasc) 10 mg DAILY PO 11/19/16 09:00 11/25/16 08:23 (Catapres) 0.2 mg Q12HR PO 11/19/16 09:00 11/25/16 08:23 (Valium) 10 mg TID PO 11/19/16 09:00 11/25/16 12:09 (Paxil) 40 mg DAILY PO 11/19/16 09:00 11/25/16 08:23 (NS Flush) 2 ml UNSCH PRN IV FLUSH 11/19/16 05:00 11/20/16 10:39 (NS Flush) 2 ml BID IV FLUSH 11/19/16 09:00 11/24/16 21:00 (Protonix Inj) 40 mg DAILY IV PUSH 11/19/16 09:00 11/25/16 08:24 (Duoneb Neb) 1 ampule Q2HR NEB PRN INH 11/19/16 05:00 (Heparin Inj) 5,000 units Q8H SQ 11/19/16 05:00 Future Hold 11/23/16 20:43 Miscellaneous Information 1 Q361D XX 11/19/16 05:00 11/19/16 05:00 (Chlorhexidine 2% Cloth) Taper DAILY@04 TOP 11/20/16 04:00 11/16/17 03:59 11/20/16 04:00 (Chlorhexidine 2% Cloth) 3 pack UNSCH PRN TOP 11/19/16 05:00 (Zofran Inj) 4 mg Q6HR PRN IV PUSH 11/19/16 05:00 (Tylenol) 650 mg Q6H PRN PO 11/19/16 05:00 (Morphine Inj) 2 mg Q2H PRN IV PUSH 11/19/16 05:00 11/25/16 12:10 (Duoneb Neb) 1 ampule Q2HR NEB PRN INH 11/19/16 05:00 (Sera-Colace) 1 tab BID PO 11/19/16 09:00 11/24/16 21:26 (Milk Of Magnesia Liq) 30 ml Q12H PRN PO 11/19/16 05:00 (Senokot) 17.2 mg Q12H PRN PO 11/19/16 05:00 (Dulcolax Supp) 10 mg DAILY PRN RECTAL 11/19/16 05:00 (Lactulose Liq) 30 ml DAILY PRN PO 11/19/16 05:00 Piperacillin Sod/ Tazobactam Sod 50 ml @ 200 mls/hr Q6H IV 11/19/16 10:00 11/25/16 10:05 (D50w (Vial) Inj) 50 ml UNSCH PRN IV PUSH 11/19/16 09:45 (Glucagon Inj) 1 mg UNSCH PRN OTHER 11/19/16 09:45 (NovoLIN R SUPPLEMENTAL SCALE) 1 Q6H SQ 11/19/16 10:00 Dextrose/Sodium Chloride 1,000 ml @ 84 mls/hr [id number] IV 11/19/16 13:30 11/25/16 04:23 (Apresoline) 25 mg Q12HR PRN PO 11/22/16 17:15 (Ferrous Sulfate) 325 mg BID@12,17 PO 11/23/16 12:00 11/25/16 12:09 (Vitamin C) 500 mg BID@1200,1700 PO 11/23/16 12:00 11/23/16 17:38 (Hemorrhoidal Hc Supp) 25 mg BID RECTAL 11/24/16 21:00 Lactated Ringer's 1,000 ml @ 30 mls/hr Q24H PRN IV 11/24/16 11:15 11/27/16 11:14 Sodium Chloride 500 ml @ 30 mls/hr [id number] PRN IV 11/24/16 11:15 11/27/16 11:14 (Lopressor) 25 mg EMT DISPATCHER PRN PO 11/24/16 11:15 11/27/16 11:14 (Betadine 5% Antisepsis Kit) 1 applic EMT DISPATCHER PRN EACH NARE 11/24/16 11:15 11/27/16 11:14 (Chlorhexidine 2% Cloth) 3 pack EMT DISPATCHER PRN TOPICAL 11/24/16 11:15 11/27/16 11:14 (NovoLIN R INJ) See Protocol Table ... EMT DISPATCHER PRN SQ 11/24/16 11:15 11/27/16 11:14 Urinary Catheter: No A/P Assessment and Plan 61-year-old female admitted with persistent nausea, vomiting, and abdominal pain. CAT scan suggests gastric outlet obstruction. Nausea: None within past 24 hours. Endoscopy indicated the presence of internal hemorrhoids and diverticulosis. Small bowel series undertaken with mild dilation of the transverse colon noted. Abdominal ultrasound indicated presence of stenosis of greater than 50% for celiac and small mesenteric arteries. Per discussion with GI STEAMER BLOCKER interventional radiology is to be consulted. Hypertension: One episode noted before yesterday morning medications were given. VICK: Creatinine 1.26 this morning. Anxiety: Psychiatry has seen patient and continued her home medication regimen without change. Appreciate input from psychiatric team. Nausea/vomiting/abdominal pain - CT abdomen suggesting gastric outlet obstruction - GI following EGD/colonoscopy done today. Report pending. Awaiting further input from surgery. Clear liquid diet per GI. - Zofran when necessary Acute kidney injury: Improving - Due to above/dehydration - IV fluid hydration - I's and O's - Monitor trend of her electrolytes and creatinine level Hypertension - Continue Norvasc - Catapres - Hold lisinopril due to acute kidney injury. Plan to restart when renal functions acceptable. - Labetalol and hydralazine when necessary to keep SBP less than 160 Leukocytosis - Reactive - No symptoms of fever or any other suggesting infection - Monitor trend - Improving Anxiety - Home dose of Valium - Paxil DVT GI prophylaxis - Teds SCDs - Subcutaneous heparin - Pantoprazole Discussed with pt, RN, GI STEAMER BLOCKER, and Dr. Guardado. Discharge Planning Initial plan is for pt to return home. Willy Rushing Jr. Nov 25, 2016 13:17
--- NOTE | 2016-11-25 13:22 | HHI.PR ---
Subjective Subjective Notes Resting in bed No issues Tolerated dinner last night Objective Vitals/I&O Vital Signs Date Time Temp Pulse Resp B/P (MAP) Pulse Ox O2 Delivery O2 Flow Rate FiO2 11/25/16 12:14 98.6 58 18 132/56 (81) 98 Labs Laboratory Tests Test 11/24/16 16:19 11/25/16 07:35 Hepatitis A IgM Antibody NEGATIVE Hepatitis B Surface Antigen NEGATIVE Hepatitis B Core IgM Antibody NEGATIVE Hepatitis C Antibody REACTIVE White Blood Count 5.5 Red Blood Count 3.75 Hemoglobin 9.9 Hematocrit 29.9 Mean Corpuscular Volume 79.7 Mean Corpuscular Hemoglobin 26.5 Mean Corpuscular Hemoglobin Concent 33.2 Red Cell Distribution Width 16.2 Platelet Count 239 Mean Platelet Volume 8.6 Blood Urea Nitrogen 5 Creatinine 1.26 Random Glucose 98 Calcium Level 8.5 Sodium Level 142 Potassium Level 3.6 Chloride Level 110 Carbon Dioxide Level 24.1 Anion Gap 8 Estimat Glomerular Filtration Rate 43 Date/Time Source Procedure Growth Status 11/18/16 23:45 Blood Peripheral Aerobic Blood Culture - Final NO GROWTH IN 5 DAYS Complete 11/18/16 23:45 Blood Peripheral Anaerobic Blood Culture - Final QNS - SEE AEROBE REPORT Complete Cardiovascular: Regular Lungs: Clear Abdomen: Non-distended, Non-tender Extremities: No edema A/P Assessment and Plan 61 year old female with concern of gastric outlet obstruction -S/p EGD; no gastric outlet obstruction -S/p colonoscopy --- internal hemorrhoids; diverticulosis -Diet as tolerated -No acute GS issues at this time Attending Statement patient seen at bedside pain much better tolerating diet s/p egd and colonoscopy awaiting abd duplex us and CTa a/p Attestation The exam, history, and the medical decision-making described in the above note were completed with the assistance of the mid-level provider. I reviewed and agree with the findings presented. I attest that I had a [id number] encounter with the patient on the same day, and personally performed and documented my assessment and findings in the medical record. Mala Calloway Nov 25, 2016 13:22 Sanjay Aviles MD Nov 27, 2016 13:34
[2016-11-25 17:39] LABS: ANA SCREEN NEG (NEG)
--- NOTE | 2016-11-25 18:14 | MB ---
cc: CECILY BELL MD DATE OF CONSULTATION 11/25/16 REASON FOR CONSULTATION Chronic kidney disease with elevated BUN and creatinine and needs contrast yesterday. HISTORY OF PRESENT ILLNESS This is a 61-year-old female with past medical history of colon cancer, hypertension, history of renal artery stenosis post stent done in 2009, history of partial colectomy for colon cancer and anxiety disorder who was admitted because of nausea or vomiting, abdominal pain and diarrhea. I was called to see the patient because of elevated BUN and creatinine. Patient has a history of chronic kidney disease and her baseline creatinine has been around 1.2-1.3 most of the time and she has recurrent acute kidney injury with creatinine of 2.3 last month, 2.0 in August of 2015 and 2.7 in March of 2013. The patient came again with creatinine of 2.9, this time also has acute kidney injury and slowly improved to 1.2-1.3 which is probably her baseline. The patient has this nausea ad vomiting, recurrent, associated with loose bowel motion which she has because of the colectomy. The patient has been following by GI. She just had a colonoscopy done and the colonoscopy shows that she has internal hemorrhoids and diverticulosis. The patient had abdominal ultrasound done which shows stenosis of greater than 50% for celiac and small mesenteric artery and, as per GI, considering angiogram. The patient she has chronic kidney disease, so there was concern about contrast related renal injury. The patient currently is feeling better. Her nausea and vomiting is better. She has chronic diarrhea, about two bowel movements today, which is according to the patient normal for her. There is no dysuria, hematuria or difficulty in passing urine. PAST MEDICAL HISTORY 1. Hypertension, 2. Chronic kidney disease, 3. Renal artery stenosis, 4. Anxiety, 5. Colon cancer. PAST SURGICAL HISTORY 1. Partial colectomy 2. Appendectomy REVIEW OF SYSTEMS Denies any headache, dizziness or blurring of vision. No shortness of breath. No chest pain. No palpitation. No nausea or vomiting. It is better now. She has mild abdominal distension. There is no significant pain. She still has loose bowel motions, about two per day, watery to soft. There is no blood in the stool. SOCIAL HISTORY The patient is . There is no history of smoking or alcoholism. FAMILY HISTORY Noncontributory. ALLERGIES CODEINE DIPHENHYDRAMINE HYDROCODONE. MEDICATIONS Currently 1. Dextrose saline 84 an hour 2. Sera-Colace 1 tablet b.i.d. 3. Hydrocortisone local cream. 4. Ferrous sulfate 325 mg b.i.d. 5. Norvasc 10 mg once a day. 6. Vitamin C 500 mg daily. 7. Paxil 40 mg once a day. 8. Protonix 40 mg daily. 9. Clonidine 0.2 mg q.12 h. 10. Zosyn 3.375 grams q. 6-hour. 11. Insulin sliding scale 12. Diazepam 10 mg t.i.d. 13. Zofran as needed PHYSICAL EXAMINATION GENERAL: The patient is awake, alert. She is not in acute distress. VITAL SIGNS: Last blood pressure is 111/82, blood pressure has been fluctuating but most of the time it is unreasonably controlled. HEENT: Pupils are mid constricted. Nonicteric sclerae, conjunctivae pale. NECK: Supple. JVD is not elevated. LUNGS: The patient has bilateral decreased air entry with occasional wheezing. HEART: S1, S2, regular rhythm. ABDOMEN: Soft lax. There is no tenderness. Bowel sounds positive. EXTREMITIES: There is mild edema in the legs. LABORATORY DATA WBC count is 5.5, hemoglobin 9.9, platelet count of 239, sodium 142. Potassium 3.6, chloride 110, bicarb 24.1, BUN 5, creatinine 1.26, glucose 98. Calcium 8.5, iron 34, TIBC 377. Iron saturation 9%, AST 13, ALT 11, alkaline phosphatase 125, total protein is 5.5, albumin 2.4. Urinalysis showing protein of 100. IMAGING STUDIES The patient had ultrasound of the abdomen done which shows that findings consistent with greater than 50% stenosis of celiac artery origin and 50% of SMA origin. Further evaluation with CT is recommended. Small bowel x-ray was done which shows post partial right colectomy with anastomosis, small bowel is unremarkable, mild dilatation of the transverse colon. CT scan of the abdomen and pelvis was done which shows distended stomach, rule out gastric outlet obstruction and partial right hemicolectomy and appendectomy. ASSESSMENT/PLAN 1. Acute kidney injury with chronic kidney disease. 2. Colectomy with possibility of bowel ischemia. 3. History of renal artery stenosis. 4. Hypertension 5. Anemia. 6. Leukocytosis 7. Anxiety disorder. The patient has chronic kidney disease with recurrent acute kidney injury, most likely because of the dehydration and prerenal cause because of the vomiting and diarrhea and has underlying chronic kidney disease related to hypertensive or renovascular disease, has minimal proteinuria. The patient has renal artery stenosis stenting done in the past and now she needs an angiogram. Her creatinine is 1.2 to 1.3 which is at baseline. She has a stage III chronic kidney disease. Her risk for contrast nephropathy is about 10-15%. I did discuss with the patient and her in detail about the possibility of worsening kidney function with the contrast. The patient is asking if there is any other alternative and I think the MRA can be done, but I am not sure if it is going to give enough information. I will leave this to GI and to discuss with the patient about doing the study if the patient accepts the risk and she should be well-hydrated and needs to be followed up closely. Thank you for the consultation. I will follow the patient while she is in the hospital. MD APOLLO Petersen/ /5:18 PM /5:50 PM
--- NOTE | 2016-11-25 18:24 | HHI.GIFU ---
Subjective Remarks Resting in bed. No nausea/vomiting since arriving to hospital. Continues to have some mild abdominal cramping. tolerating diet. States she spoke to the renal doctor and she was told that there was a 10% chance of needing dialysis if she gets the contrast for CTA. Pt states she is not ready to take that risks and would like to continue the IV hydration to see if her renal function improves. (Yissel Buitrago) Objective Vitals I&O Vital Signs Date Time Temp Pulse Resp B/P (MAP) Pulse Ox O2 Delivery O2 Flow Rate FiO2 11/25/16 16:59 99.0 63 17 111/82 (92) 97 11/25/16 12:14 98.6 58 18 132/56 (81) 98 11/25/16 08:50 98.4 57 18 126/64 (84) 96 11/25/16 04:00 98.0 55 18 134/67 (89) 94 11/25/16 01:12 53 11/25/16 00:00 97.9 49 18 107/48 (67) 96 11/24/16 23:50 14 11/24/16 20:00 98.5 66 18 125/60 (81) 95 I/O 11/24/16 11/24/16 11/24/16 11/25/16 11/25/16 11/25/16 07:00 15:00 23:00 07:00 15:00 23:00 Intake Total 200 ml 530 ml 1050 ml 410 ml 1000 ml Output Total 200 ml Balance -200 ml 200 ml 530 ml 1050 ml 410 ml 1000 ml Intake Oral 480 ml 360 ml IV Total 50 ml 1050 ml 50 ml 1000 ml Other 200 ml Output Urine Total 200 ml # Voids 4 1 2 # Bowel Movements 4 0 1 Laboratory Laboratory Tests Test 11/25/16 07:35 White Blood Count 5.5 Red Blood Count 3.75 Hemoglobin 9.9 Hematocrit 29.9 Mean Corpuscular Volume 79.7 Mean Corpuscular Hemoglobin 26.5 Mean Corpuscular Hemoglobin Concent 33.2 Red Cell Distribution Width 16.2 Platelet Count 239 Mean Platelet Volume 8.6 Blood Urea Nitrogen 5 Creatinine 1.26 Random Glucose 98 Calcium Level 8.5 Sodium Level 142 Potassium Level 3.6 Chloride Level 110 Carbon Dioxide Level 24.1 Anion Gap 8 Estimat Glomerular Filtration Rate 43 Date/Time Source Procedure Growth Status 9/29/17 23:45 Blood Peripheral Aerobic Blood Culture - Final NO GROWTH IN 5 DAYS Complete 11/18/16 23:45 Blood Peripheral Anaerobic Blood Culture - Final QNS - SEE AEROBE REPORT Complete Imaging Last Impressions Abdomen Ultrasound 11/25/16 0000 Signed Impressions: Service Date/Time: Friday, November 25, 2016 07:46 - CONCLUSION: 1. Findings consistent with moderate, greater than 50%%, stenosis of the celiac artery origin and nearly 50%% stenosis of the SMA origin. Involvement of 2 mesenteric vessels predisposes this patient to postprandial mesenteric ischemia, although likely not severe. Further evaluation may be performed with CTA or angiography. Kade Oneal MD Small Bowel X-Ray 11/24/16 0000 Signed Impressions: Service Date/Time: November 12:30 - CONCLUSION: 1. Status post partial right colectomy with an anastomosis. The small bowel is unremarkable with no evidence of obstruction. 2. Mild dilatation of the transverse colon. Roberto Crowder MD Abdomen/Pelvis CT 11/18/16 [id number] Signed Impressions: Service Date/Time: Saturday, November 19, 2016 00:10 - CONCLUSION: 1. Distended stomach. Differential diagnosis includes a mechanical or functional gastric outlet obstruction. 2. No evidence for small bowel obstruction. Postop partial right colectomy and appendectomy. Landry Dodson MD Chest X-Ray 11/18/16 [id number] Signed Impressions: Service Date/Time: Friday, November 18, 2016 23:26 - CONCLUSION: 1. No active disease. Mild scoliosis. Landry Dodson MD Physical Exam HEENT: Normocephalic; atraumatic; no jaundice. CHEST: CTA, Resp. even/unlabored CARDIAC: RRR ABDOMEN: Soft, mildly bloated, mild diffuse abdominal tenderness; no hepatosplenomegaly; bowel sounds are present in all four quadrants. EXTREMITIES: No clubbing, cyanosis, or edema. SKIN: Normal; no rash; no jaundice. 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 (Yissel Buitrago) Assessment and Plan Plan ASSESSMENT: - Abdominal pain with nausea, vomiting, and diarrhea. Abdomen/Pelvis CT (11/19/16 )--1. Distended stomach. Differential diagnosis includes a mechanical or functional gastric outlet obstruction. 2. No evidence for small bowel obstruction. Postop partial right colectomy and appendectomy. S/P EGD (11/21/16)----> 1. Gastritis antrum -biopsy, duodenitis second portion and duodenal bulb-biopsy, esophagitis distal esophagus -biopsy 2. Retroflexed views revealed a hiatal hernia. Pathology gastric mucosa without significant histopathologic abnormality, duodenal mucosa without significant histopathologic abnormality, distal esophagus with hyperplastic squamous mucosa and adjacent gastric mucosa with moderate acute and chronic inflammation, negative for intestinal metaplasia, dysplasia, or malignancy. S/P Colonoscopy (11/24/16)---> 1. Diverticulosis sigmoid,descending internal hemorrhoids anastomotic site right colon random biopsies from descending colon-r/o microscopic colitis (benign) 2. Retroflexed views revealed internal hemorrhoids 3. Retroflexed views revealed small internal hemorrhoids 4. Revealed external hemorrhoids. US (11/25/16)---> Findings consistent with moderate, greater than 50% stenosis of the celiac artery origin and nearly 50% stenosis of the sma origin. Involvement of 2 mesenteric vessels predisposes this patient to postprandial mesenteric ischemia, although likely not severe. Further evaluation may be performed with CTA or angiography. No N/V. Mild abdominal pain. PPI. Tolerating diet. - Moderate greater than 50% stenosis SMA and Celiac. IR was consulted, discussed with Dr. Broderick, recommends dedicated CTA to better evaluate the vessels prior to any intervention. Pt's creat was 2.90 on admission, improved with hydration, but still 1.29. Renal consulted, note pending, but patient states she was told there would be a 10% chance of her needing dialysis if she gets the contrast. D/W patient above US and rationale for CTA/possible stenting. She does not want to take that chance at this time and would like to continue IV hydration to see if her renal function improves. - ? Gastric outlet obstruction. S/P EGD, no gastric outlet obstruction. CANDACE. S/P GS eval. - Anemia. ./.9. - Leukocytosis. Resolved - VICK, Improving. - HCV Ab (+). Check genotype and viral load. - Elevated alk phosphatase. HCV Ab (+). Celiac pending. YOUNG negative, AMA pending, ASMA pending. Alk Phosph Isoenzymes pending, Iron saturation 9.0%, Ceruloplasmin pending, Alpha 1 antitrypsin pending. - HTN, Anxiety per attending - Hx colon cancer 2009. S/P Partial colectomy. Chemotherapy was recommended, but patient declined- per patient. Last colonoscopy (04/01/13)---> Anastomotic site in the right side of the colon, diverticulosis , sigmoid and descending colon, retroflexion revealed internal hemorrhoids. No gross lesions were seen, random biopsy from left colon was performed to rule out microscopic colitis. Pathology left side colon with benign colonic mucosa with no significant histopathology. PLAN: - CANDACE - IVF - Cont. PPI - Continue Zofran prn - Monitor labs - HCV Genotype and viral load - Cryoglobulins - S/P GS eval - IR consulted for Celiac/SMA stenosis, recommend CTA - Renal evaluation recommendations re: CTA with impaired renal function. - Supportive care - Further recommendations to follow based on results of above - Patient seen and examined by Dr. Mejía and myself and this note is written on her behalf. (Yissel Buitrago) Yissel Buitrago Nov 25, 2016 18:24 Lula Mejía MD Nov 26, 2016 07:08
[2016-11-26 00:33] VITALS: BP 118/53; PULSE 57; RESP 20; TEMP 97.9; O2SAT 96
[2016-11-26] MEDS: PIPERACIL-TAZO 3.375 GM PREMIX 50 ML IV SCH ×2 (03:19→08:38)
[2016-11-26] MEDS: MORPHINE SULFATE 4 MG/ML INJ IV PUSH PRN ×3 (03:19→10:52)
[2016-11-26] MEDS: SODIUM CHLORIDE 0.9% FLUSH 10 ML FLUSH IV FLUSH PRN (03:20)
[2016-11-26] MEDS: INSULIN NovoLIN REGULAR SUPPLEMENTAL SCALE SQ SCH ×2 (04:00→10:00)
[2016-11-26] MEDS: CHLORHEXIDINE GLUCONATE 2 % 1 PACK (2 CLOTHS) TOP SCH (04:00)
[2016-11-26 04:54] VITALS: BP 120/57; PULSE 60; RESP 20; TEMP 98; O2SAT 95
[2016-11-26] MEDS: DEXT 5%-NACL 0.9% 1000 ML INJ 1,000 ML IV SCH (05:23)
[2016-11-26 08:00] VITALS: BP 144/79; PULSE 64; RESP 18; TEMP 98.3; O2SAT 94
[2016-11-26] MEDS: PANTOPRAZOLE SODIUM 40 MG VIAL IV PUSH SCH (08:37)
[2016-11-26] MEDS: cloNIDine HCL 0.2 MG TAB PO SCH (08:37)
[2016-11-26] MEDS: DOCUSATE SODIUM 50 MG/SENNA 8.6 MG TAB PO SCH (08:37)
[2016-11-26] MEDS: PARoxetine HCL 20 MG TAB PO SCH (08:37)
[2016-11-26] MEDS: DIAZEPAM 10 MG TAB PO SCH (08:37)
[2016-11-26] MEDS: SODIUM CHLORIDE 0.9% FLUSH 10 ML FLUSH IV FLUSH SCH (08:38)
[2016-11-26] MEDS: HYDROCORTISONE ACETATE 25 MG SUPP RECTAL SCH (08:38)
[2016-11-26 12:00] VITALS: BP 136/65; PULSE 64; RESP 18; TEMP 98.6; O2SAT 95
--- NOTE | 2016-11-26 12:50 | HHI.NPPN ---
Subjective History of Present Illness 61-year-old female with past medical history of colon cancer, hypertension, history of renal artery stenosis post stent done in 2010, history of partial colectomy for colon cancer and anxiety disorder who was admitted because of nausea or vomiting, abdominal pain and diarrhea. I was called to see the patient because of elevated BUN and creatinine. Patient has a history of chronic kidney disease and her baseline creatinine has been around 1.2-1.3 most of the time and she has recurrent acute kidney injury. Additional Remarks Patient is alert, no SOB, no dysuria, feeling better. Review of Systems General Constitutional: Fatigue Gastrointestinal Gastrointestinal: Abdominal Pain, Nausea & Vomiting Objective Data Data Vital Signs Date Time Temp Pulse Resp B/P (MAP) Pulse Ox O2 Delivery O2 Flow Rate FiO2 11/26/16 11:08 18 11/26/16 08:00 98.3 64 18 144/79 (100) 94 11/26/16 04:54 98.0 60 20 120/57 (78) 95 11/26/16 00:33 97.9 57 20 118/53 (74) 96 11/25/16 20:23 98.4 66 20 140/66 (90) 96 11/25/16 16:59 99.0 63 17 111/82 (92) 97 -: 11/25/16 0735 11/25/16 0735 Physical Exam General Appearance: No Acute Distress, Comfortable Eyes Eye Exam: Pupils Equal Throat Throat Exam: Oral Mucosa Roann & Moist Neck Neck Exam: Neck Supple Pulmonary Resp Exam: Clear Bilaterally, Breath Sounds Equal, No Distress Cardiology CV Exam: Regular, Normal Sinus Rhythm Gastrointestinal/Abdomen GI Exam: Soft, Non-Tender, Bowel Sounds Present Extremeties Extremities Exam: No Edema Neurologic Neuro Exam: Alert, Awake, Oriented Psychiatric Psych Exam: Appropriate Responses Assessment/Plan Assessment Summary: Hypertension, CKD Stage III Problem List: (1) Stage 3 chronic kidney disease ICD Codes: N18.3 - Chronic kidney disease, stage 3 (moderate) (2) Renal artery stenosis ICD Codes: I70.1 - Atherosclerosis of renal artery (3) Anemia ICD Codes: D64.9 - Anemia Status: Acute (4) Abdominal pain ICD Codes: R10.9 - Unspecified abdominal pain Status: Acute (5) Seizure ICD Codes: R56.9 - Unspecified convulsions (6) HTN (hypertension) ICD Codes: I10 - HTN (hypertension) Status: Chronic Plan Patient has stable BP. Has stage 3 chronic kidney disease and Creatinine is 1.2-1.3. Now the Creatinine is stable. BP is controlled. History of renal artery stent . Patient was told about possible Contrast related VICK, she does not want angiogram as she is afraid of VICK. Told to discuss with GI. Rebecca Everett MD Nov 26, 2016 12:50
--- NOTE | 2016-11-26 13:43 | HHI.DS ---
Discharge Summary Admission Date Nov 19, 2016 at 01:24 Discharge Date: Nov 26, 2016 Admitting Diagnosis sepsis, dehydration, intractable abdominal pain/vomiting (1) Gastric outlet obstruction ICD Code: K31.1 - Gastric outlet obstruction Status: Acute (2) VICK (acute kidney injury) ICD Code: N17.9 - Acute kidney failure, unspecified Status: Acute (3) Intractable vomiting ICD Code: R11.10 - Vomiting, unspecified Status: Acute Procedures EGD with biopsies (x3) 11/21/16. Endoscopy with biopsies 11/24/16 Small bowel series 11/24/16 Abdominal ultrasound 11/25/16 Brief History - From Admission 61-year-old female with history of hypertension, renal artery stenosis, anxiety , colon cancer with history of partial colectomy as well as appendectomy, presents with complaints of abdominal pain with nausea vomiting and diarrhea. She tells me that it is been going on and off since 1996, last a few she has lost about 20 pounds which she finally regained back. Per report she has been sick all day. Reports that she has been nauseous and has been vomiting, she was unable to eat or drink anything. Patient's reports that patient appeared lethargic tonight, reports that he was concerned that she may have a seizure from electrolyte abnormalities so he brought her to the ER for evaluation. reports the patient is currently being worked up by Dr. Mejía for GI bleed as she has anemia. Reports that they are working to get her a colonscopy as well as EGD scheduled. Patient at this time reports pain to the lower abdomen with associated nausea and vomiting. She was admitted to weeks ago with similar symptoms, she says that due to severe dehydration she had episode of seizure. She was started on Keppra however she didn't tolerate it since it made her more nauseous. Her primary care physician suggested to discontinue the medication since she had only one episode of seizure and has no prior history of seizure disorder. Denies any chest pain/sob. CBC/BMP: 11/25/16 0735 11/25/16 0735 Significant Findings Laboratory Tests Test 11/24/16 16:19 11/25/16 07:35 Hepatitis C Antibody REACTIVE (NEGATIVE) Red Blood Count 3.75 MIL/MM3 (4.00-5.30) Hemoglobin 9.9 GM/DL (11.6-15.3) Hematocrit 29.9 % (35.0-46.0) Mean Corpuscular Volume 79.7 FL (80.0-100.0) Mean Corpuscular Hemoglobin 26.5 PG (27.0-34.0) Blood Urea Nitrogen 5 MG/DL (7-18) Creatinine 1.26 MG/DL (0.50-1.00) Chloride Level 110 MEQ/L (98-107) Estimat Glomerular Filtration Rate 43 ML/MIN (>89) Imaging Last Impressions Abdomen Ultrasound 11/25/16 0000 Signed Impressions: Service Date/Time: Friday, November 25, 2016 07:46 - CONCLUSION: 1. Findings consistent with moderate, greater than 50%%, stenosis of the celiac artery origin and nearly 50%% stenosis of the SMA origin. Involvement of 2 mesenteric vessels predisposes this patient to postprandial mesenteric ischemia, although likely not severe. Further evaluation may be performed with CTA or angiography. Kade Oneal MD Small Bowel X-Ray 11/24/16 0000 Signed Impressions: Service Date/Time: November 12:30 - CONCLUSION: 1. Status post partial right colectomy with an anastomosis. The small bowel is unremarkable with no evidence of obstruction. 2. Mild dilatation of the transverse colon. Roberto Crowder MD Abdomen/Pelvis CT 11/18/16 [id number] Signed Impressions: Service Date/Time: Saturday, November 19, 2016 00:10 - CONCLUSION: 1. Distended stomach. Differential diagnosis includes a mechanical or functional gastric outlet obstruction. 2. No evidence for small bowel obstruction. Postop partial right colectomy and appendectomy. Landry Dodson MD Chest X-Ray 11/18/16 [id number] Signed Impressions: Service Date/Time: Friday, November 18, 2016 23:26 - CONCLUSION: 1. No active disease. Mild scoliosis. Landry Dodson MD PE at Discharge GENERAL: Patient encountered sitting up in bed, eating breakfast, NAD SKIN: Warm and dry. HEAD: Normocephalic. EYES: No scleral icterus. No injection or drainage. NECK: Supple, trachea midline. No lymphadenopathy. CARDIOVASCULAR: Regular rate and rhythm without murmurs, gallops, or rubs. RESPIRATORY: Breath sounds equal bilaterally. No wheezes rhonchi or crackles. No accessory muscle use. GASTROINTESTINAL: Abdomen soft, non-tender, nondistended. MUSCULOSKELETAL: No cyanosis, or edema. PSYCHIATRIC: Appropriate mood and affect; insight and judgment normal. Patient was pleasant and cooperative. Pt update on day of discharge I was notified that pt left AMA. Hospital Course Pt left against medical advice Pt Condition on Discharge: Guarded Discharge Disposition: Discharge Home (AMA) Discharge Time: <= 30 minutes Effie Oleary MD Nov 26, 2016 13:43
[2016-11-27 03:52] LABS: IGA SERUM 83 mg/dL (81-463); MITOCHONDRIAL ABS LESS THAN 20.0 U (<=20.0)
[2016-11-28 03:51] LABS: ENDOMYSIAL AB TITER ND (<1:5); TISSUE TRANSGLUTAMINASE AB LESS THAN 1 U/mL (0-4)
== END 2016-11-26 13:34 | disposition left against medical advice (07) | DRG 392 ==
LOC: PHED 22:50 → PHEDA 11-19 01:24 → HIMN 11-19 03:49 → N05A 11-20 15:26
PROVIDERS: ADMIT Hospitalist; ATTEND Hospitalist
PROC: 0DB78ZX Excision of Stomach, Pylorus, Via Natural or Artificial Opening Endoscopic, Diagnostic (ICD-10-PCS; 2016-11-21)
PROC: 0DB38ZX Excision of Lower Esophagus, Via Natural or Artificial Opening Endoscopic, Diagnostic (ICD-10-PCS; 2016-11-21)
PROC: 0DB98ZX Excision of Duodenum, Via Natural or Artificial Opening Endoscopic, Diagnostic (ICD-10-PCS; principal; 2016-11-21 12:43)
PROC: 0DBM8ZX Excision of Descending Colon, Via Natural or Artificial Opening Endoscopic, Diagnostic (ICD-10-PCS; 2016-11-24)
DX: K57.30 Diverticulosis of large intestine without perforation or abscess without bleeding (principal); R64 Cachexia; E87.2 Acidosis; N17.9 Acute kidney failure, unspecified; I77.4 Celiac artery compression syndrome; N18.3 Chronic kidney disease, stage 3 (moderate); E11.22 Type 2 diabetes mellitus with diabetic chronic kidney disease; E86.0 Dehydration; D50.9 Iron deficiency anemia, unspecified; F43.10 Post-traumatic stress disorder, unspecified; G40.909 Epilepsy, unspecified, not intractable, without status epilepticus; I12.9 Hypertensive chronic kidney disease with stage 1 through stage 4 chronic kidney disease, or unspecified chronic kidney disease; I70.1 Atherosclerosis of renal artery; K20.9 Esophagitis, unspecified; K29.70 Gastritis, unspecified, without bleeding; K29.80 Duodenitis without bleeding; F41.9 Anxiety disorder, unspecified; M19.90 Unspecified osteoarthritis, unspecified site; F32.9 Major depressive disorder, single episode, unspecified; K44.9 Diaphragmatic hernia without obstruction or gangrene; K64.8 Other hemorrhoids; Z85.038 Personal history of other malignant neoplasm of large intestine; Z87.11 Personal history of peptic ulcer disease; Z90.49 Acquired absence of other specified parts of digestive tract
CPT/HCPCS: 51702; 71010; 74176; 74250; 80048; 80053; 80074; 81001; 82103; 82390; 82784; 82948; 83516; 83520; 83540; 83550; 83605; 83690; 83735; 84080; 84100; 85007; 85025; 85027; 85610; 86038; 86255; 87040; 87641; 88305; 88312; 93005; 93975; 96361; 96365; 96367; 96375; C9113; J0360; J1644; J2270; J2405; J2543; J3370; J7030; J7042; J7050